=== PATIENT | male | born 1995 | race Hispanic/Latino ===

== ENCOUNTER 2020-02-18 21:39 | Emergency (ER) | payer OTHER ==
[~2020-02-18] VITALS: Ht 177.8 cm; Wt 90.7 kg
--- OUTSIDE RECORDS SUMMARY | 2020-02-18 22:01 | XMS REPORT | Continuity of Care Document ---
Author Author Edward Posibl.THERESA [employer] Address Unknown Phone Unavailable Care Team Providers Care [employer] Name Role Phone [employer] Information [employer] Unavailable Un available Problems Problem Status Onset Date Classification Date Reported Comments Source BMI 29.0-29.9,adult Active Problem 03/12/2019 Feroz Guthrie Major depressive disorder, single episode, severe Active Problem 06/14/2017 Ferozmerlin Guthrie BMI 30.0-30.9,adult Active Diagnosis 06/14/2017 Ferozmerlin Guthrie Autistic disorder, residual Ac tive Problem Ferozmerlin Guthrie Mild mental retardation Active Problem 03/12/2019 Feroz Jerri Autistic disorder Active Problem 03/12/2019 Feroz Jerri Pharyngitis Active Diagnosis 06/03/2018 Feroz Jerri URI (upper respiratory infection) Active Diagnosis 0 06/14/2017 Feroz Stacieaarnaldo Fever Active Diagnosis 06/03/2018 Feroz Jerri Major depressive disorder, single episod e, severe with psychotic features Active Prob killian 03/12/2019 Feroz Guthrie Routine general medical examination at a health care facility Active Diag nosis 07/13/2018 Ferozmerlin Guthrie Flu-like symptoms Active Diagnosis 06/03/2018 Feroz Jerri Screening for Alcoholism/Depression Active Diagnosis 0 06/03/2018 Feroz Stacieaji Gastroenteritis Active Diagnosis 12/04/2016 Feroz Stacieaarnaldo Nausea Active Diagnosis 12/04/2016 Feroz Stacieaji Headache Active Diagnosis 06/03/2018 Feroz Stacieaji BMI 27.0-27.9,adult Active Problem 03/12/2019 Feroz Stacieaarnaldo URI with cough and congestion Active Diagnosis 0 06/03/2018 Feroz Jerri Immunization due Active Diagnosis 03/12/2019 Ferozmerlin Guthrie Cellulitis of great toe of right foot Active Diagnosis 03/12/2019 Ferozmerlin Guthrie BMI 26.0-26.9,adult Active Diagnosis 03/12/2019 Feroz Jerri Vitamin D deficiency Active Problem 03/12/2019 Feroz Jerri Frequency of micturition Active Diagnosis 03/27/2016 Feroz Guthrie Cough Active Diagnosis 03/27/2016 Feroz Guthrie Medications Medication Details Route Status Patient Instructions Ordering Provider Order Date Source Bactrim DS 1 tablet Orally Active 800-160 MG Orally Twice a day [facility] 02[facility]27[facility] Poly[facility] Glycol as directed orally Active 527gm orally as directed [facility] 01/18/2014 Ferozmerlin Guthrie Vitamin D 1 capsule Orally Active 95338 UNIT Orally once a week [facility] 06/27/2013 [facility] Jerri Divalproex Sodium ER not defin ed Orally Active 250 MG [facility] Aripiprazole 1 tablet Orally Active 5 MG Orally [facility] Polyethylene Glycol 3350 TAKE DIRECTED NA Active [facility] analia Guthrie LoHist-DM 10 ml Orally Active 5-2-10 MG/5ML Orally ev gracie 6 hrs [facility] Ibuprofen 1 tablet with food o r milk as needed Orally Active 400 MG Orally three times a day (tid) as needed (prn) [facility] Vitamin D (Ergocalciferol) DEVIN E ONE CAPSULE BY MOUTH EVERY WEEK DIRECTED NA Active 73070 UNIT [facility] Bromfed DM 10 ml as needed Orally Active 30-2-10 MG/5ML Orally every 6 hrs [facility] Risperidone 1 tablet Orally Active 1 MG Orally Once a day [facility] Benztrop[facility] Mesylate 1 ml Injection Active 1 MG/ML Injection Once a day [facility] Strattera 1 capsule in the mor lizbeth Orally Active 60 MG Orally Once a day [facility] Pantoprazole Sodium 1 tablet Orally Active 40 MG Orally Once a day [facility] Guanfacine HCl 1 tablet at bed time Orally Active 1 MG Orally Once a day [facility] Ondansetron HCl 1 tablet Orally Active 4 mg Orally every 4 hrs prn nausea Mussletty Guthrie Amphetamine Salt Combo not def ined NA Active 20 mg Jerri Guthrie Ibuprofen 1 tablet as needed Orally Active 600 MG Orally every 6 hrs as needed Jerri Guthrie Ibuprofen 20 ml Orally Active 100 MG/5ML Orally every 6 hrs Jerri Guthrie Benzonatate 1 capsule as needed Orally Active 100 MG Orally Three times a day Jerri Guthrie Tamiflu 1 capsule Orally Active 75 MG Orally Twice a da [facility] Ibuprofen 1 tablet as needed Orally Active 600 MG Orally every 6 hrs Jerri Guthrie Risperidone 1 tablet Orally Active 1 MG Orally Once a day Staciearnaldo Guthrie LoHist-DM 10 ml Orally Active 5-2-10 MG/5ML Orally ev gracie 6 hrs Jerri Guthrie Divalproex Sodium ER 2 tablets Orally Active 250 MG Orally Twice a day Staciearnaldo [place]do Guanfacine HCl 1 tablet at bed time Orally Active 1 MG Orally Once a day Jerri Quinonesarnaldo Benzonatate 1 capsule as needed Orally Active 100 MG Orally Three times a day Jerri Guthrie Strattera 1 capsule in the mor lizbeth Orally Active 60 MG Orally Once a day Jerri Guthrie Ibuprofen 1 tablet as needed Orally Active 400 MG Orally every 6 hrs prn Jerri Guthrie Ibuprofen 20 ml Orally Active 100 MG/5ML Orally every 6 hrs Staciearnaldo [place]arnaldo Benztropine Mesylate 1 ml Injection Active 1 MG/ML Injection Once a day Jerri Quinonesarnaldo Bromfed DM 10 ml as needed Orally Active 30-2-10 MG/5ML Orally every 6 hrs Staciearnaldo Quinonesarnaldo Aripiprazole 1 tablet Orally Active 5 MG Orally Once a day Staciearnaldo [place]arnaldo Amoxicillin 1 tablet Orally Active 875 MG Orally Twice a d ay Jerri Quinonesarnaldo Atomoxetine HCl 1 capsule in t he morning Orally Active 60 MG Orally Once a day Jreri Guthrie D3-50 1 capsule Orally Active 27053 UNIT Orally once a week [facility] Amoxicillin 1 tablet Orally Active 500 MG Orally three kaylie es a day (tid) Jerri Guthrie Vitamin D 1 capsule Orally Active 64245 UNIT Orally once a week Jerri Guthrie Amphetamine Salt Combo Unknown NA Active 20 mg Stacieaarnaldo Guthrie Allergies, Adverse Reactions, Alerts Substance Category Reaction Severity Reaction type Status Date Reported Comments Source N.K.D.A. Adverse Reaction Info Not Available Adverse Reaction 02/27/2019 Feroz Mussaarnaldo Immunizations Immunization Date Given Site Status Last Updated Comments Source INFLUENZA- FLUCELVAX >4YRS (COMMERCIAL) 02/27/2019 completed Feroz Mussaarnaldo Results No Data Provided for This Section Pathology Reports No Data Provided for This Section Diagnostic Reports No Data Provided for This Section Consultation Notes No Data Provided for This Section Discharge Summaries No Data Provided for This Section History and Physicals No Data Provided for This Section Vital Signs Vital Sign Value Date Comments Source Heart Rate 108 02/27/2019 Feroz Mussaji Diastolic (mm Hg) 74 02/27/2019 Feroz Mussaji Systolic (mm Hg) 108 02/27/2019 Feroz Mussaji Temperature Oral (F) 98 F 02/27/2019 Feroz Mussaji Weight 188 02/27/2019 Feroz Mussaji Height 70 1 Feroz Mussaji Heart Rate 71 06/19/2018 Feroz Mussaji Diastolic (mm Hg) 21 06/19/2018 Feroz Mussaji Systolic (mm Hg) 111 06/19/2018 Feroz Mussaji Temperature Oral (F) 97.8 F 06/19/2018 Feroz Mussaji Weight 190 06/19/2018 Feroz Mussaji Height 70 0 06/19/2018 Feroz Mussaji Heart Rate 106 05/25/2018 Feroz Mussaji Diastolic (mm Hg) 78 05/25/2018 Feroz Mussaji Systolic (mm Hg) 117 05/25/2018 Feroz Mussaji Temperature Oral (F) 99.2 F 05/25/2018 Feroz Mussaji Weight 193 05/25/2018 Feroz Mussaji Height 70 0 05/25/2018 Feroz Mussaji Heart Rate 66 06/20/2017 Feroz Mussaji Diastolic (mm Hg) 70 06/20/2017 Feroz Mussaji Systolic (mm Hg) 121 06/20/2017 Feroz Mussaji Temperature Oral (F) 97 F 06/20/2017 Feroz Mussaji Weight 209 06/20/2017 Feroz Mussaji Height 70 0 06/20/2017 Feroz Mussaji Heart Rate 80 06/03/2017 Feroz Mussaji Diastolic (mm Hg) 79 06/03/2017 Feroz Mussaji Systolic (mm Hg) 124 06/03/2017 Feroz Mussaji Temperature Oral (F) 98 F 06/03/2017 Feroz Mussaji Weight 210 06/03/2017 Feroz Mussaji Height 70 0 06/03/2017 Feroz Mussaji Heart Rate 76 03/21/2017 Feroz Mussaji Diastolic (mm Hg) 78 03/21/2017 Feroz Mussaji Systolic (mm Hg) 118 03/21/2017 Feroz Mussaji Temperature Oral (F) 98.0 F 03/21/2017 Feroz Mussaji Weight 209.2 03/21/2017 Feroz Mussaji Height 70 1 Feroz Mussaji Heart Rate 72 11/22/2016 Feroz Mussaji Diastolic (mm Hg) 80 11/22/2016 Feroz Mussaji Systolic (mm Hg) 121 11/22/2016 Feroz Mussaji Temperature Oral (F) 98.2 F 11/22/2016 Feroz Mussaji Weight 214 11/22/2016 Feroz Mussaji Height 70 0 11/22/2016 Feroz Mussaji Heart Rate 98 03/15/2016 Feroz Mussaji Diastolic (mm Hg) 76 03/15/2016 Feroz Mussaji Systolic (mm Hg) 124 03/15/2016 Feroz Mussaji Temperature Oral (F) 98.6 F 03/15/2016 Feroz Mussaji Weight 210 03/15/2016 Feroz Mussaji Height 70 1 Feroz Mussaji Diastolic (mm Hg) 69 06/26/2013 Feroz Mussaji Systolic (mm Hg) 142 06/26/2013 Feroz Mussaji Temperature Oral (F) 97.4 F 06/26/2013 Ferozanalia Quinonesletty Weight 178 06/26/2013 Feroz Mussletty Height 67 0 06/26/2013 Feroz Guthrie Encounters Location Location Details Encounter Type Encounter Number Reason For Visit Attending Provider ADM Date DC Date Status Source Feroz Berry DO, [place] Unknown [id number] 06/27/19 14 06/27/2013 Feroz Berry DO, [place] Unknown [id number] 06/27/19 14 06/27/2013 Feroz Berry DO, [place] Unknown [id number] 06/27/19 14 06/27/2013 Feroz Berry DO, [place] Unknown [id number] 06/27/19 14 06/27/2013 Feroz Berry DO PA Test results [id number] 07/02/19 14 07/02/2013 Feroz Berry DO PA Test results [id number] 07/02/19 14 07/02/2013 Feroz Berry DO PA Test results [id number] 07/02/19 14 07/02/2013 Feroz Berry DO PA Test results [id number] 09/13/19 15 09/12/2014 Feroz Berry DO PA Test results [id number] 09/13/19 15 09/12/2014 Feroz Berry DO, PA Test results [id number] 08/28/19 16 08/28/2015 Feroz Berry DO, PA Test results [id number] 08/28/19 16 08/28/2015 Feroz Berry DO, [place] Consult [id number] 03/15/20 16 03/15/2016 Feroz Guthrie Procedures No Data Provided for This Section Assessment and Plan No Data Provided for This Section Plan of Care No Data Provided for This Section Social History No Data Provided for This Section Family History Value Date S ource QualifierDescriptionCommentDate Reported Maternal Grandmother Comment not available Mar 15, 2016 Paternal Grandmother Comment not available Mar 15, 2016 Siblings Comment not available Mar 15, 2016 Maternal Grandfather Comment not available Mar 15, 2016 Children Comment not available Mar 15, 2016 Father alive Comment not available Mar 15, 2016 Paternal Grandfather Comment not available Mar 15, 2016 Mother alive healthy Mar 15, 2016 Other: Comment not available Mar 15, 2016 03/27/2016 Feroz Guthrie Advance Directives No Data Provided for This Section Functional Status No Data Provided for This Section
--- OUTSIDE RECORDS SUMMARY | 2020-02-18 22:01 | XMS REPORT | Continuity of Care Document ---
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 Name Role Phone Chaka Mcclain Attphys Lucio Perrin Attphys Unavailable Higginbotham, Crystal Attphys Unavailable Lalo Enriquez Attphys Katty Romo Attphys Unavailable Latasha Bell Attphys Radha Ryan Attphys Unavailable Hart, Kamini Attphys Unavailable Law, Karina Attphys Unavailable Guillaume-Sachnik, Jie Attphys Unavailable Natasha Shanks Attphys Barrios, Nori Attphys Unavailable Barrios, Alina Attphys Unavailable Crockett, Christelle Attphys Unavailable Dodd, Moon Attphys Unavailable Kely Chavez Attphys Unavailable Stevens, Caitlin Attphys Unavailable Ramsey Kaplan, Shay Attphys Unavailable Patrica Carmichael Attphys Unavailable Chaka Mcclain Unavailable Natasha Shanks Unavailable Payers Payer Name Policy Type Policy Number Effective Date Expiration Date [facility] [id number] 00:00:00 2016 00:00:00 [employer] [facility] Health Problems Condition Name Condition Details Condition Category Status Onset Date Resolution Date Last Treatment Date Treating Clinician Comments Source Medication, group home use Condition Active 2018-11-22 00: 00:00 2018-11-22 15:45:51 Chaka Mcclain [facility] Screening for anemia Condition Active 2016-08-20 00:00:00 2016-08-20 17:41:23 Natasha Shanks [facility] Obesity Condition Active 2016-06-17 00:00:00 2016-06-17 09:00:05 Natasha Shanks [facility] PROBLEM R/T PHASE OF LIFE Condition Active 2016-02-12 00: 00:00 2016-02-12 09:10:32 Chaka Mcclain [facility] ADHD, COMBINED PRESENTATION, MILD Condition Active 02-11 00:00:00 2016-02-12 09:10:32 Chaka Mcclain [facility] BMI 29.0-29.9,adult BMI 29.0-29.9,adult Active Problem 03/12/2019 Ferozmerlin Guthrie Problem Active 2019-03-12 02:00:13 Edward Palacio Major depressive disorder, single episode, severe Major depressive disorder, single episode, severe Active Problem 06/14/2017 Ferozmerlin Betancourtji Problem Active 2017-06-14 03:00:05 [facility] BMI 30.0-30.9,adult BMI 30.0-30.9,adult Active Diagnosis 06/14/2017 Ferozmerlin Guthrie Diagnosis Active 2017-06-14 03:00:0 5 Edward Palacio Mild mental retardation Mild mental retardation Active Problem 03/12/2019 Ferozmerlin Betancourtji Problem Active 2019-03-12 0 2:00:13 Edward Palacio Autistic disorder Auti stic disorder Active Problem 03/12/2019 Feroz Stacieaji Problem Active 2019-03-12 02:00:13 Edward Palacio Pharyngitis Phar yngitis Active Diagnosis 06/03/2018 Feroz Stacieletty Diagnosis Active 2018-06-03 03:00:05 Edward Palacio Fever Feve r Active Diagnosis 06/03/2018 Feroz Stacieaji Diagnosis Active 2018-06-03 03:00:05 Edward Palacio Major depressive disorder, single episode, 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, single episode, severe with psychotic features Active Problem 03/12/2019 Feroz Stacieaji Problem Active 2019-03-12 02:00:13 Edward Palacio Routine general medical examination at a health care f acility Routine general medical examination at a health care facility Active Diagnosis 07/13/2018 Feroz Staciedelorisji Diagnosis Active 2018-07-13 03:05:4 8 Edward Palacio Flu-like symptoms Flu- like symptoms Active Diagnosis 06/03/2018 Ferozmerlin Guthrie Diagnosis Active 2018-06-03 03:00:0 5 Edward Palacio Screening for Alcoholism/Depression Screening for Alcoholism/Depression Active Diagnosis 06/03/2018 Ferozmerlin Guthrie Diagnosis Active 2018-06-03 03:00:05 Kathy Palacio Gastroenteritis Meera roenteritis Active Diagnosis 12/04/2016 Ferozmerlin Guthrie Diagnosis Active 2016-12-04 02:00:42 Edward Palacio Nausea Naus ea Active Diagnosis 12/04/2016 Feroz Jerri Diagnosis Active 2016-12-04 02:00:42 Edward Palacio Headache Head ache Active Diagnosis 06/03/2018 Ferozmerlin Guthrie Diagnosis Active 2018-06-03 03:00:05 [facility] [place] BMI 27.0-27.9,adult BMI 27.0-27.9,adult Active Problem 03/12/2019 Ferozmerlin Guthrie Problem Active 2019-03-12 02:00:13 Edward Palacio URI with cough and congestion URI with cough and congestion Active Diagnosis 06/03/2018 Ferozmerlin Guthrie Diagnosis Active 2018-06-03 03:00:05 Edward Palacio Immunization due Immu nization due Active Diagnosis 03/12/2019 Ferozmerlin Guthrie Diagnosis Active 2019-03-12 02:00:13 Edward Palacio Cellulitis of great toe of right foot Cellulitis of great toe of right foot Active Diagnosis 03/12/2019 Ferozmerlin Guthrie Diagnosis Active 2019-03-12 02:00:13 Memor iafederico Palacio BMI 26.0-26.9,adult BMI 26.0-26.9,adult Active Diagnosis 03/12/2019 Ferozmerlin Guthrie Diagnosis Active 2019-03-12 02:00:1 3 Edward Palacio Vitamin D deficiency Darlyn min D deficiency Active Problem 03/12/2019 Ferozmerlin Guthrie Problem Active 2019-03-12 02:00:13 Edward Palacio Frequency of micturition Freq uency of micturition Active Diagnosis 03/27/2016 Ferozmerlin Guthrie Diagnosis Active 2015 02:04:41 Edward Palacio Cough Coug h Active Diagnosis 03/27/2016 Ferozmerlin Guthrie Diagnosis Active 2016-03-27 02:04:41 Edward Palacio Allergies, Adverse Reactions, Alerts Allergy Name Allergy Type Status Severity Reaction(s) Onset Date Inacti ve Date Treating Clinician Comments Source Cheri. N.Kevin. Active Info Not Available 2019-02-27 00:00:00 [facility] Family History Family Member Diagnosis Comments Start Date Stop Date Source Unknown Family Member Family History 2016-03-27 02:04:41 2 02:04:41 [facility] Social History Social Habit Start Date Stop Date Quantity Comments Source social history reviewed E&M 2019-06-05 14:01:59 2019-06-05 14:01 :59 reviewed today [facility] social history E&M 2019-06-05 14:01:59 2019-06-05 14:01:59 Lives at home with mother and father; has 2 brothers ages 40 and 36 as of 02/12/16Not homeless. Has own roomNot employed. Finished HS in 2012, hopes to take college courses Sexually Active: No. [facility] drug use, illicit 2019-06-05 14:01:59 2019-06-05 14:01:59 Never [facility] alcohol use 2019-06-05 14:01:59 2019-06-05 14:01:59 Never [facility] smoking, advice to quit 2019-06-05 14:01:59 2019-06-05 14:01:59 Yes [facility] passive cigarette smoke exposure 2016-06-17 08:44:15 2016-06-17 08:44 :15 No [facility] patient considered to be homeless 2016-02-12 08:02:24 2016-02-12 08:0 2:24 No [facility] home/family situation, assessment 2016-02-12 08:02:24 2016-02-12 08:02:24 Has own room [facility] family support 2016-02-12 08:02:24 2016-02-12 08:02:24 Lives at home with mother and father; has 2 brothers ages 40 and 36 as of 02/12/16 [facility] Smoking Status Start Date Stop Date Source Never smoked tobacco (finding) L [facility] Medications Ordered Medication Name Filled Medication Name Start Date Stop Da te Current Medication? Ordering Clinician Indication Dosage Frequency Signature (SIG) Comments Components Source Aripiprazole 2019-03-12 02:00:13 Yes Feroz Mussaji 1 [facility] LoHist-DM 2019-03-12 02:00:13 Yes Feroz Mussaji 10 ml [facility] Ibuprofen 2019-03-12 02:00:13 Yes Feroz Mussaji 1 tablet with food or milk as needed [facility] Bromfed DM 2019-03-12 02:00:13 Yes Feroz Mussaji 10 ml as needed [facility] Risperidone 2019-03-12 02:00:13 Yes Feroz Mussaji 1 tablet [facility] Benzonatate 2019-03-12 02:00:13 Yes Feroz Mussaji 1 capsule as needed [facility] Ibuprofen 2019-03-12 02:00:13 Yes Feroz Mussaji 1 tablet as needed [facility] Divalproex Sodium ER 2019-03-12 02:00:13 Yes Feroz Mus osman 2 tablets [facility] Amoxicillin 2019-03-12 02:00:13 Yes Feroz Mussaji 1 tablet [facility] Atomoxetine HCl 2019-03-12 02:00:13 Yes Feroz Mussaji 1 capsule in the morning [facility] D3-50 2019-03-12 02:00:13 Yes Feroz Mussaji 1 c apsule [facility] Bactrim DS 2019-02-27 00:00:00 Yes Feroz Mussaji 1 tablet [facility] Divalproex Sodium ER 2018-07-13 03:05:48 Yes Feroz Mus osman not defined [facility] ABILIFY (ARIPIPRAZOLE) 10 MG TABS 2018-01-18 00:00:00 Arturo Mcclain .5{Tablet} 2xD Take one half tablet By Mouth Twice a Day [facility] Polyethylene Glycol 3350 2017-07-02 03:00:03 Yes Feroz Mussaji TAKE DIRECTED [facility] Vitamin D (Ergocalciferol) 2017-07-02 03:00:03 Yes Murta za Mussaji TAKE ONE CAPSULE BY MOUTH EVERY WEEK DIRECTED [facility] Benztropine Mesylate 2017-07-02 03:00:03 Yes Feroz Mussaji 1 ml [facility] Strattera 2017-07-02 03:00:03 Yes Feroz Mussaji 1 capsule in the morning [facility] Pantoprazole Sodium 2017-07-02 03:00:03 Yes Feroz Mussaji 1 tablet [facility] Guanfacine HCl 2017-07-02 03:00:03 Yes Feroz Mussaji 1 tablet at bedtime [facility] Ondansetron HCl 2017-07-02 03:00:03 Yes Feroz Mussaji 1 tablet [facility] Amphetamine Salt Combo 2017-07-02 03:00:03 Yes Feroz M ussaji not defined [facility] Ibuprofen 2017-07-02 03:00:03 Yes Feroz Mussaji 1 tablet as needed [facility] Ibuprofen 2017-07-02 03:00:03 Yes Feroz Mussaji 20 ml [facility] Tamiflu 2017-07-02 03:00:03 Yes Feroz Mussaji 1 capsule [facility] Risperidone 2016-12-04 02:00:42 Yes Feroz Mussaji 1 tablet [facility] LoHist-DM 2016-12-04 02:00:42 Yes Feroz Mussaji 10 ml [facility] Guanfacine HCl 2016-12-04 02:00:42 Yes Feroz Mussaji 1 tablet at bedtime [facility] Benzonatate 2016-12-04 02:00:42 Yes Feroz Mussaji 1 capsule as needed [facility] Strattera 2016-12-04 02:00:42 Yes Feroz Mussaji 1 capsule in the morning [facility] Ibuprofen 2016-12-04 02:00:42 Yes Feroz Mussaji 1 tablet as needed [facility] Ibuprofen 2016-12-04 02:00:42 Yes Feroz Mussaji 20 ml [facility] Benztropine Mesylate 2016-12-04 02:00:42 Yes Feroz Mussaji 1 ml [facility] Bromfed DM 2016-12-04 02:00:42 Yes Feroz Mussaji 10 ml as needed [facility] Aripiprazole 2016-12-04 02:00:42 Yes Feroz Mussaji 1 tablet [facility] (GUANFACINE HCL) 1 MG TABS 2016-07-05 00:00:00 2017-09-28 00:00:00 No take one tablet By Mouth daily (can take one half tablet two times daily) [facility] 2016-03-27 02:04:41 Yes Feroz Guthrie 1 tablet [facility] Vitamin D 2016-03-27 02:04:41 Yes Feroz Guthrie 1 capsule [facility] Amphetamine Salt Combo 2016-03-27 02:04:41 Yes Feroz farr Unknown [facility] [place] STRATTERA (ATOMOXETINE HCL) 60 MG CAPS 2016-02-12 00:00:00 Yes Chaka Johny take one tablet By Mouth daily [facility] DEPAKOTE SPRINKLES (DIVALPROEX SODIUM) 125 MG CSDR 2016-01 00:00:00 Yes Chaka Johny Take two capsules By Mouth Twice a Day [facility] ABILIFY (ARIPIPRAZOLE) 5 MG TABS 2016-02-12 00:00:00 2017-09 00:00:00 No take one tablet By Mouth once daily at bedtime [facility] Polyethylene Glycol 2014-01-18 00:00:00 Yes Feroz saenz as directed [facility] Vitamin D 2013-06-27 00:00:00 Yes Feroz Guthrie 1 capsule [facility] Vital Signs Vital Name Observation Time Observation Value Comments Source blood pressure, diastolic 2019-06-05 14:01:59 85 mm[Hg] [facility] blood pressure, systolic 2019-06-05 14:01:59 127 mm[Hg] [facility] pulse rate E&M 2019-06-05 14:01:59 107 /min [facility] weight E&M 2019-06-05 14:01:59 196.50 [lb_av] [facility] weight in kilograms E&M 2019-06-05 14:01:59 89.32 kg [facility] height in centimeters E&M 2019-06-05 14:01:59 177.16 cm [facility] blood pressure, diastolic 2019-04-09 11:28:40 78 mm[Hg] [facility] blood pressure, systolic 2019-04-09 11:28:40 125 mm[Hg] [facility] pulse rate E&M 2019-04-09 11:28:40 101 /min [facility] weight E&M 2019-04-09 11:28:40 189.13 [lb_av] [facility] weight in kilograms E&M 2019-04-09 11:28:40 85.97 kg [facility] height in centimeters E&M 2019-04-09 11:28:40 177.16 cm [facility] Heart Rate 2019-02-27 19:45:00 [facility] Diastolic (mm Hg) 2019-02-27 19:45:00 [facility] Systolic (mm Hg) 2019-02-27 19:45:00 [facility] [place] Temperature Oral (F) 2019-02-27 19:45:00 98 F [facility] Weight 2019-02-27 19:45:00 [facility] Height 2019-02-27 19:45:00 [facility] blood pressure, diastolic 2018-11-22 15:15:22 83 mm[Hg] [facility] blood pressure, systolic 2018-11-22 15:15:22 135 mm[Hg] [facility] pulse rate E&M 2018-11-22 15:15:22 98 /min [facility] weight E&M 2018-11-22 15:15:22 189.80 [lb_av] [facility] weight in kilograms E&M 2018-11-22 15:15:22 86.27 kg [facility] height in centimeters E&M 2018-11-22 15:15:22 177.16 cm [facility] blood pressure, diastolic 2018-08-02 15:00:41 76 mm[Hg] [facility] blood pressure, systolic 2018-08-02 15:00:41 110 mm[Hg] [facility] pulse rate E&M 2018-08-02 15:00:41 86 /min [facility] weight E&M 2018-08-02 15:00:41 188.50 [lb_av] [facility] weight in kilograms E&M 2018-08-02 15:00:41 85.68 kg [facility] height in centimeters E&M 2018-08-02 15:00:41 177.16 cm [facility] Heart Rate 2018-06-19 14:30:00 [facility] Diastolic (mm Hg) 2018-06-19 14:30:00 [facility] Systolic (mm Hg) 2018-06-19 14:30:00 Herb [facility] [place] Temperature Oral (F) 2018-06-19 14:30:00 97.8 F [facility] Weight 2018-06-19 14:30:00 [facility] Height 2018-06-19 14:30:00 [facility] Heart Rate 2018-05-25 20:00:00 [facility] Diastolic (mm Hg) 2018-05-25 20:00:00 Mem [facility] Systolic (mm Hg) 2018-05-25 20:00:00 Herb Palacio Temperature Oral (F) 2018-05-25 20:00:00 99.2 F [facility] Weight 2018-05-25 20:00:00 [facility] Height 2018-05-25 20:00:00 [facility] weight E&M 2018-05-10 08:26:53 194 [lb_av] [facility] blood pressure, diastolic 2018-05-10 08:26:53 75 mm[Hg] [facility] blood pressure, systolic 2018-05-10 08:26:53 113 mm[Hg] [facility] pulse rate E&M 2018-05-10 08:26:53 82 /min [facility] weight in kilograms E&M 2018-05-10 08:26:53 88.18 kg [facility] height in centimeters E&M 2018-05-10 08:26:53 177.16 cm [facility] blood pressure, diastolic 2018-02-15 11:27:36 81 mm[Hg] [facility] blood pressure, systolic 2018-02-15 11:27:36 121 mm[Hg] [facility] pulse rate E&M 2018-02-15 11:27:36 81 /min [facility] weight E&M 2018-02-15 11:27:36 189 [lb_av] [facility] weight in kilograms E&M 2018-02-15 11:27:36 85.91 kg [facility] height in centimeters E&M 2018-02-15 11:27:36 177.16 [facility]&M 2018-01-18 12:42:41 193.25 [lb_av] [facility] weight in kilograms E&M 2018-01-18 12:42:41 87.84 kg [facility] blood pressure, diastolic 2018-01-18 12:42:41 81 mm[Hg] [facility] blood pressure, systolic 2018-01-18 12:42:41 122 mm[Hg] [facility] pulse rate E&M 2018-01-18 12:42:41 95 /min [facility] height in centimeters E&M 2018-01-18 12:42:41 177.[facility], diastolic 2017-12-21 12:44:39 81 mm[Hg] [facility] pressure, systolic 2017-12-21 12:44:39 123 mm[Hg] [facility] pulse rate E&M 2017-12-21 12:44:39 116 /min [facility] weight E&M 2017-12-21 12:44:39 193.13 [lb_av] [facility] weight in kilograms E&M 2017-12-21 12:44:39 87.79 kg [facility] height in centimeters E&M 2017-12-21 12:44:39 177.16 cm [facility] blood pressure, diastolic 2017-09-28 08:47:03 78 mm[Hg] [facility] blood pressure, systolic 2017-09-28 08:47:03 120 mm[Hg] [facility] pulse rate E&M 2017-09-28 08:47:03 69 /min [facility] weight E&M 2017-09-28 08:47:03 200 [lb_av] [facility] weight in kilograms E&M 2017-09-28 08:47:03 90.91 kg [facility] height in centimeters E&M 2017-09-28 08:47:03 177.16 cm [facility] blood pressure, diastolic 2017-07-01 14:58:41 74 mm[Hg] [facility] blood pressure, systolic 2017-07-01 14:58:41 128 mm[Hg] [facility] weight E&M 2017-07-01 14:58:41 211 [lb_av] [facility] weight in kilograms E&M 2017-07-01 14:58:41 95.91 kg [facility] height in centimeters E&M 2017-07-01 14:58:41 177.16 cm [facility] Heart Rate 2017-06-20 14:30:00 [facility] Diastolic (mm Hg) 2017-06-20 14:30:00 [facility] Systolic (mm Hg) 2017-06-20 14:30:00 [facility] Temperature Oral (F) 2017-06-20 14:30:00 97 F [facility] Weight 2017-06-20 14:30:00 [facility] Height 2017-06-20 14:30:00 [facility] Heart Rate 2017-06-03 20:45:00 [facility] Diastolic (mm Hg) 2017-06-03 20:45:00 [facility] Systolic (mm Hg) 2017-06-03 20:45:00 [facility] Temperature Oral (F) 2017-06-03 20:45:00 98 F [facility] Weight 2017-06-03 20:45:00 [facility] Height 2017-06-03 20:45:00 [facility] Heart Rate 2017-03-21 20:00:00 [facility] Diastolic (mm Hg) 2017-03-21 20:00:00 [facility] Systolic (mm Hg) 2017-03-21 20:00:00 Herb [facility] [place] Temperature Oral (F) 2017-03-21 20:00:00 98.0 F [facility] Weight 2017-03-21 20:00:00 [facility] Height 2017-03-21 20:00:00 [facility] pressure, diastolic 2017-02-28 09:25:02 70 mm[Hg] [facility] blood pressure, systolic 2017-02-28 09:25:02 124 mm[Hg] [facility] pulse rate E&M 2017-02-28 09:25:02 66 /min [facility] weight E&M 2017-02-28 09:25:02 209 [lb_av] [facility] weight in kilograms E&M 2017-02-28 09:25:02 95 kg [facility] height in centimeters E&M 2017-02-28 09:25:02 177.16 cm [facility] temperature site 2016-12-15 09:45:20 tympanic [facility] temperature E&M 2016-12-15 09:45:20 98.5 [degF] [facility] blood pressure, diastolic 2016-12-06 09:52:43 81 mm[Hg] [facility] blood pressure, systolic 2016-12-06 09:52:43 124 mm[Hg] [facility] pulse rate E&M 2016-12-06 09:52:43 60 /min [facility] weight E&M 2016-12-06 09:52:43 215.40 [lb_av] [facility] weight in kilograms E&M 2016-12-06 09:52:43 97.91 kg [facility] height in centimeters E&M 2016-12-06 09:52:43 177.16 cm [facility] Heart Rate 2016-11-22 15:00:00 Edward Palacio Diastolic (mm Hg) 2016-11-22 15:00:00 Emma Palacio Systolic (mm Hg) 2016-11-22 15:00:00 Herb Palacio Temperature Oral (F) 2016-11-22 15:00:00 98.2 F [facility] Weight 2016-11-22 15:00:00 [facility] Height 2016-11-22 15:00:00 [facility] blood pressure, diastolic 2016-09-13 10:12:38 82 mm[Hg] [facility] blood pressure, systolic 2016-09-13 10:12:38 111 mm[Hg] [facility] pulse rate E&M 2016-09-13 10:12:38 118 /min [facility] height in centimeters E&M 2016-09-13 10:12:38 177.16 cm [facility] weight E&M 2016-09-13 10:12:38 216.60 [lb_av] [facility] weight in kilograms E&M 2016-09-13 10:12:38 98.45 kg [facility] blood pressure, diastolic 2016-07-19 10:42:37 77 mm[Hg] [facility] blood pressure, systolic 2016-07-19 10:42:37 120 mm[Hg] [facility] pulse rate E&M 2016-07-19 10:42:37 72 /min [facility] weight E&M 2016-07-19 10:42:37 215.13 [lb_av] [facility] weight in kilograms E&M 2016-07-19 10:42:37 97.79 kg [facility] height in centimeters E&M 2016-07-19 10:42:37 177.16 cm [facility] pressure, diastolic 2016-07-05 10:12:33 79 mm[Hg] [facility] blood pressure, systolic 2016-07-05 10:12:33 121 mm[Hg] [facility] pulse rate E&M 2016-07-05 10:12:33 75 /min [facility] E&M 2016-07-05 10:12:33 210.50 [lb_av] [facility] weight in kilograms E&M 2016-07-05 10:12:33 95.68 kg [facility] height in centimeters E&M 2016-07-05 10:12:33 177.16 cm [facility] oxygen saturation, oximetry 2016-06-17 08:44:15 99 % [facility] temperature E&M 2016-06-17 08:44:15 98.0 [degF] [facility] pulse rate E&M 2016-06-17 08:44:15 84 /min [facility] [facility] blood pressure, diastolic 2016-06-17 08:44:15 79 mm[Hg] [facility] blood pressure, systolic 2016-06-17 08:44:15 118 mm[Hg] [facility] weight E&M 2016-06-17 08:44:15 213 [lb_av] [facility] in [facility] E&M 2016-06-17 08:44:15 96.82 kg [facility] temperature site 2016-06-17 08:44:15 tympanic [facility] height in centimeters E&M 2016-06-17 08:44:15 177.16 cm [facility] blood pressure, diastolic 2016-05-05 10:24:18 76 mm[Hg] [facility], systolic 2016-05-05 10:24:18 119 mm[Hg] [facility] pulse rate E&M 2016-05-05 10:24:18 80 /min [facility] weight E&M 2016-05-05 10:24:18 215.25 [lb_av] [facility] weight in kilograms E&M 2016-05-05 10:24:18 97.84 kg [facility] height in centimeters E&M 2016-05-05 10:24:18 177.16 cm [facility] Heart Rate 2016-03-15 14:15:00 [facility] Diastolic (mm Hg) 2016-03-15 14:15:00 [facility] Systolic (mm Hg) 2016-03-15 14:15:00 [facility] Temperature Oral (F) 2016-03-15 14:15:00 98.6 F [facility] Weight 2016-03-15 14:15:00 [facility] Height 2016-03-15 14:15:00 [facility] blood pressure, diastolic 2016-03-10 10:16:34 80 mm[Hg] [facility] blood pressure, systolic 2016-03-10 10:16:34 121 mm[Hg] [facility] pulse rate E&M 2016-03-10 10:16:34 90 /min [facility] weight E&M 2016-03-10 10:16:34 210.50 [lb_av] [facility] weight in kilograms E&M 2016-03-10 10:16:34 95.68 kg [facility] height in centimeters E&M 2016-03-10 10:16:34 177.16 cm [facility] blood pressure, diastolic 2016-02-12 08:02:24 71 mm[Hg] [facility] blood pressure, systolic 2016-02-12 08:02:24 124 mm[Hg] [facility] pulse rate E&M 2016-02-12 08:02:24 78 /min [facility] weight E&M 2016-02-12 08:02:24 213.13 [lb_av] [facility] weight in kilograms E&M 2016-02-12 08:02:24 96.88 kg [facility] height E&M 2016-02-12 08:02:24 69.75 [in_i] [facility] Diastolic (mm Hg) 2013-06-26 14:45:00 Emma Palacio Systolic (mm Hg) 2013-06-26 14:45:00 Herb Palacio Temperature Oral (F) 2013-06-26 14:45:00 97.4 F [facility] Weight 2013-06-26 14:45:00 [facility] Height 2013-06-26 14:45:00 [facility] Procedures Procedure Date / Time Performed Performing Clinician Sour e Diagnostic evaluation with medical - 30534 2016-02-12 09:09:59 Chaka Abraham [facility] Encounters Start Date/Time End Date/Time Encounter Type Admission Type [facility] Care Department Encounter ID Source 2019-06-05 00:00:00 2019-06-05 00:00:00 Office Visit Chaka Mcclain [facility] Encounter/[id number] [facility] 2019-06-05 00:00:00 2019-06-05 00:00:00 Office Visit Chaka Abraham Adam [facility] Encounter/1 [id number] [facility] 2019-04-18 00:00:00 2019-04-18 00:00:00 Office Visit Chaka Mcclain [facility] Encounter/[id number] [facility] 2019-04-17 00:00:00 2019-04-17 00:00:00 Office Visit Chaka Abraham Adam [facility] Encounter/1 [id number] [facility] 2019-04-09 00:00:00 2019-04-09 00:00:00 Office Visit Chaka Abraham Adam [facility] Encounter/1 [id number] [facility] 2019-02-27 14:45:00 2019-02-27 14:45:00 Outpatient [facility] [id number] [employer] 2018-11-22 00:00:00 2018-11-22 00:00:00 Office Visit Chaka Mcclain [facility] Encounter/[id number] [facility] 2018-11-22 00:00:00 2018-11-22 00:00:00 Office Visit Chaka Abraham Jessenia [facility] Encounter/[id number] [facility] 2018-08-02 00:00:00 2018-08-02 00:00:00 Office Visit Chaka Abraham Jessenia [facility] Encounter/[id number] [facility] 2018-06-19 08:30:00 2018-06-19 08:30:00 Outpatient [facility] [id number] [employer] 2018-06-19 00:00:00 2018-06-19 00:00:00 [facility] En[facility]/[id number] [facility] 2018-05-25 14:00:00 2018-05-25 14:00:00 Outpatient [facility] [id number] [employer] 2018-05-10 00:00:00 2018-05-10 00:00:00 Office Visit Chaka Abraham Jessenia [facility] Encounter/[id number] [facility] 2018-02-15 00:00:00 2018-02-15 00:00:00 Office Visit Chaka Abraham Jessenia [facility] Encounter/[id number] [facility] 2018-01-18 00:00:00 2018-01-18 00:00:00 Office Visit Chaka Abraham Jessenia [facility] Encounter/[id number] [facility] 2017-12-21 00:00:00 2017-12-21 00:00:00 Office Visit Chaka Mcclain [facility] Encounter/[id number] [facility] 2017-12-21 00:00:00 2017-12-21 00:00:00 Office Visit Chaka Abraham Jessenia [facility] Encounter/[id number] [facility] 2017-09-28 00:00:00 2017-09-28 00:00:00 Office Visit Chaka Abraham Jessenia [facility] Encounter/[id number] [facility] 2017-07-01 00:00:00 2017-07-01 00:00:00 Office Visit Chaka Abraham Jessenia [facility] Encounter/[id number] [facility] 2017-06-20 08:30:00 2017-06-20 08:30:00 Outpatient [facility] [id number] e[employer]Works 2017-06-20 00:00:00 2017-06-20 00:00:00 Office Visit Chaka Mcclain [facility] Encounter/[id number] [facility] 2017 00:00:00 2017 00:00:00 [facility]/[id number] [facility] 2017-06-10 00:00:00 2017-06-10 00:00:00 Office Visit Chaka Mcclain [facility] Encounter/[id number] [facility] 2017-06-03 14:45:00 2017-06-03 14:45:00 Outpatient [facility] [id number] e[employer] 2017-03-29 00:00:00 2017-03-29 00:00:00 Office Visit [facility]aka [facility]/[id number] [facility] 2017-03-21 14:00:00 2017-03-21 14:00:00 Outpatient [facility] [id number] e[employer]Works 2017-02-28 00:00:00 2017-02-28 00:00:00 Office Visit Chaka Mcclain [facility] Encounter/[id number] [facility] 2017-02-28 00:00:00 2017-02-28 00:00:00 Office Visit Chaka Abraham Jessenia [facility] Encounter/[id number] [facility] 2016-12-15 00:00:00 2016-12-15 00:00:00 Office Visit Irais Bell [facility] Encounter/[id number] [facility] 2016-12-15 00:00:00 2016-12-15 00:00:00 Office Visit Radha Powell Guadalupe [facility] Encounter/[id number] [facility] 2016-12-06 00:00:00 2016-12-06 00:00:00 Office Visit Chaka Abraham Velia [facility] Enc ounter/[id number] [facility] 2016-11-25 14:37:00 2016-11-25 14:37:00 Outpatient [facility] [id number] e[employer]Works 2016-11-22 10:00:00 2016-11-22 10:00:00 Outpatient [facility] [id number] [employer]Works 2016-11-17 11:41:00 2016-11-17 11:41:00 Outpatient [facility] [id number] e[employer]Works 2016-10-11 00:00:00 2016-10-11 00:00:00 Office Visit Crystal Hylton [facility] Encounter/[id number] [facility] 2016-09-13 00:00:00 2016-09-13 00:00:00 Office Visit Chaka Abraham Velia [facility] Enc ounter/[id number] [facility] 2016-09-02 00:00:00 2016-09-02 00:00:00 Office Visit Chaka Mcclain [facility] Encounter/[id number] [facility] 2016-09-01 00:00:00 2016-09-01 00:00:00 Office Visit Chaka Abraham Jessenia [facility] Encounter/[id number] [facility] 2016-08-20 00:00:00 2016-08-20 00:00:00 Office Visit Natasha Shanks [facility] Encounter/[id number] [facility] 2016-08-16 00:00:00 2016-08-16 00:00:00 Office Visit Irais Bell [facility] Encounter/[id number] [facility] 2016-08-16 00:00:00 2016-08-16 00:00:00 Office Visit Latasha Linder Vanessa Padilla, Dunia [facility] Encou nter/[id number] [facility] 2016-08-12 00:00:00 2016-08-12 00:00:00 Office Visit Chaka Mcclain [facility] Encounter/[id number] [facility] 2016-08-05 00:00:00 2016-08-05 00:00:00 Office Visit Chaka Mcclain [facility] Encounter/[id number] [facility] 2016-08-04 00:00:00 2016-08-04 00:00:00 Office Visit Chaka Abraham Jessenia Amaya, Rosa [facility] Services Contact Center Encounter/[id number] [facility] 2016-08-02 00:00:00 2016-08-02 00:00:00 Office Visit Chaka Mcclain [facility] Encounter/[id number] [facility] 2016-07-28 00:00:00 2016-07-28 00:00:00 Office Visit Latasha Linder Dunia [facility] Enc nter/[id number] [facility] 2016-07-19 00:00:00 2016-07-19 00:00:00 Office Visit Chaka Abraham Jessenia [facility] Encounter/[id number] [facility] 2016-07-05 00:00:00 2016-07-05 00:00:00 Office Visit Chaka Abraham Jessenia [facility] Encounter/[id number] [facility] 2016-06-30 00:00:00 2016-06-30 00:00:00 Office Visit Chaka Abraham Jessenia [facility] Encounter/[id number] [facility] 2016 00:00:00 2016 00:00:00 Office Visit Moon Dodd [facility] Encounter/[id number] [facility] 2016 00:00:00 2016 00:00:00 Office Visit Natasha Shanks [facility] Encounter/[id number] [facility] 2016-06-17 00:00:00 2016-06-17 00:00:00 Office Visit Natasha Shanks [facility] Encounter/[id number] [facility] 2016-06-17 00:00:00 2016-06-17 00:00:00 Office Visit Natasha Light Daisy LC [facility] Encou nter/[id number] [facility] 2016-06-17 00:00:00 2016-06-17 00:00:00 Office Visit Natasha Shanks [facility] Encounter/[id number] [facility] 2016-06-17 00:00:00 2016-06-17 00:00:00 Office Visit Natasha Light Julissa Velez, Guadalupe [facility] Encounter/[id number] [facility] 2016-05-05 00:00:00 2016-05-05 00:00:00 Office Visit Chkaa Abraham Jessenia [facility] Encounter/[id number] [facility] 2016-03-16 00:00:00 2016-03-16 00:00:00 Office Visit Caitlin Ellsworth [facility] [employer] Encounter/[id number] [facility] 2016-03-15 09:15:00 2016-03-15 09:15:00 Outpatient Feroz Berry DO, PA Murtaza Musajji, [place], [place] [id number] eClinicalWorks 2016-03-10 00:00:00 2016-03-10 00:00:00 Office Visit Chaka Abraham Miguel [facility]a lth Encounter/[id number] [facility] 2016-02-18 00:00:00 2016-02-18 00:00:00 [facility] Encounter/[id number] [facility] 2016-02-12 00:00:00 2016-02-12 00:00:00 [facility]/[id number] [facility] 2016-02-12 00:00:00 2016-02-12 00:00:00 Office Visit Chaka Abraham Kristin Villegas, Erica [facility] Encounter/[id number] [facility] 2016-02-12 00:00:00 2016-02-12 00:00:00 Office Visit Chaka Abraham Miguel [facility] Encounter/[id number] [facility] 2016-02-11 00:00:00 2016-02-11 00:00:00 Office Visit Shay Carballo [facility] Encounter/1 [id number] [facility] 2015-08-28 09:06:00 2015-08-28 09:06:00 Outpatient Feroz Berry DO, PA Murtaza Musajji, [place], [place] [id number] eClinicalWorks 2013-07-02 15:29:00 2013-07-02 15:29:00 Outpatient Feroz Berry DO, PA Murtaza Musajji, DO [place] [id number] eClinicalWorks 2013-06-27 16:12:00 2013-06-27 16:12:00 Outpatient Feroz Berry DO, PA Murtaza Musajji, [place], [place] [id number] eClinicalWorks Results Test Description Test Time Test Comments Results Result Comments Source valproic acid, serum 2019-06-05 15:09:00 Test Item valproic acid, serum (test code = 289) 29 ug/mL 50-100 L [facility], [id number] 15:09:00* Test Item Value Reference Range Interpretation Comments LDL cholesterol, serum (test code = 2089-1) 66 mg/dL 0-99 [facility] Centervery low density [id number] 15:09:00* Test Item Value Reference Range Interpretation Comments very low density lipoproteins (test code = 2548) 14 mg/dL 5-40 [facility]HDL cholesterol, [id number] 15:09:00* Test Item Value Reference Range Interpretation Comments HDL cholesterol, serum (test code = 2085-9) 54 mg/dL >39 [facility]ertrig[facility], serum, [id number] 15:09:00* Test Item Value Reference Range Interpretation Comments triglyceride, serum, fasting (test code = 2571-8) 69 mg/dL 0-14 9 [facility] Centercholesterol, [id number] 15:09:00* Test Item Value Reference Range Interpretation Comments cholesterol, serum (test code = 2093-3) 134 mg/dL 100-199 [facility] Cent[facility]anine aminotransferase (SGPT), [id number] 15:09:00 * Test Item Value Reference Range Interpretation Comments alanine aminotransferase (SGPT), serum (test code = 40) 22 1/L 0-44 [facility] Centeraspartate aminotransferase (SGOT), [id number] 15:09:00* Test Item Value Reference Range Interpretation Comments aspartate aminotransferase (SGOT), serum (test code = 39) 15 1/L 0-40 [facility] Centeralkaline phosphatase, [id number] 15:09:00* Test Item Value Reference Range Interpretation Comments alkaline phosphatase, serum (test code = 3) 61 1/L 39-117 [facility]bilirubin, serum, [id number] 15:09:00* Test Item Value Reference Range Interpretation Comments bilirubin, serum, total (test code = 43) 1.4 mg/dL 0.0-1.2 H [facility] Centeralbumin/globulin ratio, [id number] 15:09:00* Test Item Value Reference Range Interpretation Comments albumin/globulin ratio, serum (test code = 146) 2.0 1.2-2. 2 [facility] Centerglobulin, [id number] 15:09:00* Test Item Value Reference Range Interpretation Comments globulin, serum (test code = 3059) 2.5 1.5-4.5 [facility] Healthalbumin, [id number] 15:09:00* Test Item Value Reference Range Interpretation Comments albumin, serum (test code = 2) 4.9 g/dL 3.5-5.5 [facility] Healthprotein, total, [id number] 15:09:00* Test Item Value Reference Range Interpretation Comments protein, total, serum (test code = 36) 7.4 g/dL 6.0-8.5 [facility] Healthcalcium, [id number] 15:09:00* Test Item Value Reference Range Interpretation Comments calcium, serum (test code = 11) 9.9 mg/dL 8.7-10.2 [facility] Centercarbon dioxide, venous [id number] 15:09:00* Test Item Value Reference Range Interpretation Comments carbon dioxide, venous blood (test code = 15) 25 mmol/L 20-29 [facility] Healthchloride, [id number] 15:09:00* Test Item Value Reference Range Interpretation Comments chloride, serum (test code = 13) 99 mmol/L 96-106 [facility] Centerpotassium, [id number] 15:09:00* Test Item Value Reference Range Interpretation Comments potassium, serum (test code = 35) 4.3 mmol/L 3.5-5.2 [facility] Centersodium, [id number] 15:09:00* Test Item Value Reference Range Interpretation Comments sodium, serum (test code = 159) 141 mmol/L 134-144 [facility] Centerurea nitrogen/creatinine ratio, [id number] 15:09:00 * Test Item Value Reference Range Interpretation Comments urea nitrogen/creatinine ratio, serum (test code = 2462) 11 9-20 [facility] HealtheGFR if [id number] 15:09:00* Test Item Value Reference Range Interpretation Comments eGFR if (test code = 638532) 124 mL/min/((173/100) .m2) >59 [facility] CenterEstimated Glomerular Filtration Rate (calc)2019-06-05 15:09:00* Test Item Value Reference Range Interpretation Comments Estimated Glomerular Filtration Rate (calc) (test code = 59828) 107 mL/min/((173/100).m2) >59 [facility] Centercreatinine, [id number] 15:09:00* Test Item Value Reference Range Interpretation Comments creatinine, serum (test code = 18) 0.98 mg/dL 0.76-1.27 [facility] Centerurea nitrogen, [id number] 15:09:00* Test Item Value Reference Range Interpretation Comments urea nitrogen, blood (test code = 9) 11 mg/dL 6-20 [facility] Centerblood glucose, [id number] 15:09:00* Test Item Value Reference Range Interpretation Comments blood glucose, random (test code = 8) 91 mg/dL 65-99 [facility] Centerimmature granulocytes, percentage of total cells, blood 2019-06-05 15:09:00* Test Item Value Reference Range Interpretation Comments immature granulocytes, percentage of total cells, bloo d (test code = 304992) 0 % [facility] Centerbasophil count, [id number] 15:09:00* Test Item Value Reference Range Interpretation Comments basophil count, absolute (test code = 49321) 0.0 x10E3/uL 0.0-0.2 [facility] CenterEosinophil Absolute [id number] 15:09:00* Test Item Value Reference Range Interpretation Comments Eosinophil Absolute Count (test code = 267317) 0.1 X10E3/UL 0.0-0.4 [facility] Centermonocyte count, blood, [id number] 15:09:00* Test Item Value Reference Range Interpretation Comments monocyte count, blood, automated (test code = 3076) 0.3 X10E3/UL 0. 1-0.9 [facility] Centerlymphocyte count, blood, [id number] 15:09:00* Test Item Value Reference Range Interpretation Comments lymphocyte count, blood, automated (test code = 3074) 1.3 X10E3/UL 0.7-3.1 [facility] CenterAbsolute [id number] 15:09:00* Test Item Value Reference Range Interpretation Comments Absolute Neutrophils (test code = 80789) 3.0 X10E3/UL 1.4-7.0 [facility] Centerbasophils as percent of blood [id number] 15:09:00* Test Item Value Reference Range Interpretation Comments basophils as percent of blood leukocytes (test code = 2426) 1 % [facility] Centereosinophils as percent of blood [id number] 15:09:00* Test Item Value Reference Range Interpretation Comments eosinophils as percent of blood leukocytes (test code = 4170) 2 % [facility] Healthmonocytes as percent of blood [id number] 15:09:00* Test Item Value Reference Range Interpretation Comments monocytes as percent of blood leukocytes (test code = 2421) 6 % [facility] Centerlymphocytes as percent of blood [id number] 15:09:00* Test Item Value Reference Range Interpretation Comments lymphocytes as percent of blood leukocytes (test code = 317) 27 % [facility] Centerneutrophils as percent of blood [id number] 15:09:00* Test Item Value Reference Range Interpretation Comments neutrophils as percent of blood leukocytes (test code = 316) 64 % [facility] Centerplatelet [id number] 15:09:00* Test Item Value Reference Range Interpretation Comments platelet count (test code = 66) 210 X10E3/UL 150-450 [facility] Centerred blood cell distribution [id number] 15:09:00* Test Item Value Reference Range Interpretation Comments red blood cell distribution width (test code = 1030) 13.4 % 1 1.6-15.4 [facility] corpuscular hemoglobin concentration, [id number] 15:09:00* Test Item Value Reference Range Interpretation Comments mean corpuscular hemoglobin concentration, RBC (test code = 1029) 34.1 G/DL 31.5-35.7 [facility] corpuscular hemoglobin, [id number] 15:09:00* Test Item Value Reference Range Interpretation Comments mean corpuscular hemoglobin, RBC (test code = 1031) 30.3 pg 26 .6-33.0 [facility] corpuscular volume, [id number] 15:09:00* Test Item Value Reference Range Interpretation Comments mean corpuscular volume, RBC (test code = 315) 89 fL 79-97 [facility] Centerhematocrit, [id number] 15:09:00* Test Item Value Reference Range Interpretation Comments hematocrit, blood (test code = 64) 46.9 % 37.5-51.0 [facility] Centerhemoglobin, [id number] 15:09:00* Test Item Value Reference Range Interpretation Comments hemoglobin, blood (test code = 65) 16.0 g/dL 13.0-17.7 [facility] Centererythrocyte (RBC) [id number] 15:09:00* Test Item Value Reference Range Interpretation Comments erythrocyte (RBC) count (test code = 67) 5.28 X10E6/UL 4.14-5.80 [facility] Centerleukocyte count, [id number] 15:09:00* Test Item Value Reference Range Interpretation Comments leukocyte count, blood (test code = 68) 4.8 X10E3/UL 3.4-10.8 [facility] Centervalproic acid, [id number] 16:01:00* Test Item Value Reference Range Interpretation Comments valproic acid, serum (test code = 289) 16 ug/mL 50-100 L [facility] CenterLDL cholesterol, [id number] 16:01:00* Test Item Value Reference Range Interpretation Comments LDL cholesterol, serum (test code = 2089-1) 47 mg/dL 0-99 [facility] low density [id number] 16:01:00* Test Item Value Reference Range Interpretation Comments very low density lipoproteins (test code = 2548) 18 mg/dL 5-40 [facility] CenterHDL cholesterol, [id number] 16:01:00* Test Item Value Reference Range Interpretation Comments HDL cholesterol, serum (test code = 2085-9) 49 mg/dL >39 [facility] Centertriglyceride, serum, [id number] 16:01:00* Test Item Value Reference Range Interpretation Comments triglyceride, serum, fasting (test code = 2571-8) 89 mg/dL 0-14 9 [facility] Centercholesterol, [id number] 16:01:00* Test Item Value Reference Range Interpretation Comments cholesterol, serum (test code = 2093-3) 114 mg/dL 100-199 [facility] Centeralanine aminotransferase (SGPT), [id number] 16:01:00 * Test Item Value Reference Range Interpretation Comments alanine aminotransferase (SGPT), serum (test code = 40) 20 1/L 0-44 [facility] Centeraspartate aminotransferase (SGOT), [id number] 16:01:00* Test Item Value Reference Range Interpretation Comments aspartate aminotransferase (SGOT), serum (test code = 39) 12 1/L 0-40 [facility] Centeralkaline phosphatase, [id number] 16:01:00* Test Item Value Reference Range Interpretation Comments alkaline phosphatase, serum (test code = 3) 57 1/L 39-117 [facility] Centerbilirubin, serum, [id number] 16:01:00* Test Item Value Reference Range Interpretation Comments bilirubin, serum, total (test code = 43) 1.2 mg/dL 0.0-1.2 [facility] Centeralbumin/globulin ratio, [id number] 16:01:00* Test Item Value Reference Range Interpretation Comments albumin/globulin ratio, serum (test code = 146) 2.3 1.2-2. 2 [facility] Healthglobulin, [id number] 16:01:00* Test Item Value Reference Range Interpretation Comments globulin, serum (test code = 3059) 2.3 1.5-4.5 [facility] Healthalbumin, [id number] 16:01:00* Test Item Value Reference Range Interpretation Comments albumin, serum (test code = 2) 5.4 g/dL 3.5-5.5 [facility] Centerprotein, total, [id number] 16:01:00* Test Item Value Reference Range Interpretation Comments protein, total, serum (test code = 36) 7.7 g/dL 6.0-8.5 [facility] Healthcalcium, [id number] 16:01:00* Test Item Value Reference Range Interpretation Comments calcium, serum (test code = 11) 9.8 mg/dL 8.7-10.2 [facility] Centercarbon dioxide, venous [id number] 16:01:00* Test Item Value Reference Range Interpretation Comments carbon dioxide, venous blood (test code = 15) 24 mmol/L 20-29 [facility] Centerchloride, [id number] 16:01:00* Test Item Value Reference Range Interpretation Comments chloride, serum (test code = 13) 104 mmol/L 96-106 [facility] Healthpotassium, [id number] 16:01:00* Test Item Value Reference Range Interpretation Comments potassium, serum (test code = 35) 4.5 mmol/L 3.5-5.2 [facility] Centersodium, [id number] 16:01:00* Test Item Value Reference Range Interpretation Comments sodium, serum (test code = 159) 143 mmol/L 134-144 [facility] Centerurea nitrogen/creatinine ratio, [id number] 16:01:00 * Test Item Value Reference Range Interpretation Comments urea nitrogen/creatinine ratio, serum (test code = 2462) 10 9-20 [facility] HealtheGFR if [id number] 16:01:00* Test Item Value Reference Range Interpretation Comments eGFR if (test code = 200878) 98 mL/min/((173/100). m2) >59 [facility] CenterEstimated Glomerular Filtration Rate (calc)2018-11-22 16:01:00* Test Item Value Reference Range Interpretation Comments Estimated Glomerular Filtration Rate (calc) (test code = 63358) 85 mL/min/((173/100).m2) >59 [facility] Centercreatinine, [id number] 16:01:00* Test Item Value Reference Range Interpretation Comments creatinine, serum (test code = 18) 1.19 mg/dL 0.76-1.27 [facility] Centerurea nitrogen, [id number] 16:01:00* Test Item Value Reference Range Interpretation Comments urea nitrogen, blood (test code = 9) 12 mg/dL 6-20 [facility] Centerblood glucose, [id number] 16:01:00* Test Item Value Reference Range Interpretation Comments blood glucose, random (test code = 8) 98 mg/dL 65-99 [facility] Centerimmature granulocytes, percentage of total cells, blood 2018-11-22 16:01:00* Test Item Value Reference Range Interpretation Comments immature granulocytes, percentage of total cells, bloo d (test code = 195939) 0 % [facility]basophil count, [id number] 16:01:00* Test Item Value Reference Range Interpretation Comments basophil count, absolute (test code = 85827) 0.0 x10E3/uL 0.0-0.2 [facility] HealthEosinophil Absolute [id number] 16:01:00* Test Item Value Reference Range Interpretation Comments Eosinophil Absolute Count (test code = 271475) 0.0 X10E3/UL 0.0-0.4 [facility] Healthmonocyte count, blood, [id number] 16:01:00* Test Item Value Reference Range Interpretation Comments monocyte count, blood, automated (test code = 3076) 0.3 X10E3/UL 0. 1-0.9 [facility] Centerlymphocyte count, blood, [id number] 16:01:00* Test Item Value Reference Range Interpretation Comments lymphocyte count, blood, automated (test code = 3074) 1.2 X10E3/UL 0.7-3.1 [facility] HealthAbsolute Oizyhnjdqmp9667-33-05 16:01:00* Test Item Value Reference Range Interpretation Comments Absolute Neutrophils (test code = 08703) 2.9 X10E3/UL 1.4-7.0 [facility] Centerbasophils as percent of blood ovhgxtvmag3648-90-78 16:01:00* Test Item Value Reference Range Interpretation Comments basophils as percent of blood leukocytes (test code = 2426) 1 % [facility] Healtheosinophils as percent of blood [id number] 16:01:00* Test Item Value Reference Range Interpretation Comments eosinophils as percent of blood leukocytes (test code = 4170) 1 % [facility] Healthmonocytes as percent of blood [id number] 16:01:00* Test Item Value Reference Range Interpretation Comments monocytes as percent of blood leukocytes (test code = 2421) 6 % [facility] Healthlymphocytes as percent of blood [id number] 16:01:00* Test Item Value Reference Range Interpretation Comments lymphocytes as percent of blood leukocytes (test code = 317) 27 % [facility] Healthneutrophils as percent of blood lpbccyqqcu0326-13-05 16:01:00* Test Item Value Reference Range Interpretation Comments neutrophils as percent of blood leukocytes (test code = 316) 65 % [facility] Centerplatelet [id number] 16:01:00* Test Item Value Reference Range Interpretation Comments platelet count (test code = 66) 173 X10E3/UL 150-450 [facility] Centerred blood cell distribution [id number] 16:01:00* Test Item Value Reference Range Interpretation Comments red blood cell distribution width (test code = 1030) 13.1 % 1 2.3-15.4 [facility] corpuscular hemoglobin concentration, [id number] 16:01:00* Test Item Value Reference Range Interpretation Comments mean corpuscular hemoglobin concentration, RBC (test code = 1029) 32.9 G/DL 31.5-35.7 [facility] corpuscular hemoglobin, [id number] 16:01:00* Test Item Value Reference Range Interpretation Comments mean corpuscular hemoglobin, RBC (test code = 1031) 29.5 pg 26 .6-33.0 [facility] corpuscular volume, [id number] 16:01:00* Test Item Value Reference Range Interpretation Comments mean corpuscular volume, RBC (test code = 315) 90 fL 79-97 [facility] Centerhematocrit, [id number] 16:01:00* Test Item Value Reference Range Interpretation Comments hematocrit, blood (test code = 64) 48.7 % 37.5-51.0 [facility] Centerhemoglobin, [id number] 16:01:00* Test Item Value Reference Range Interpretation Comments hemoglobin, blood (test code = 65) 16.0 g/dL 13.0-17.7 [facility] Centererythrocyte (RBC) [id number] 16:01:00* Test Item Value Reference Range Interpretation Comments erythrocyte (RBC) count (test code = 67) 5.42 X10E6/UL 4.14-5.80 [facility] Centerleukocyte count, [id number] 16:01:00* Test Item Value Reference Range Interpretation Comments leukocyte count, blood (test code = 68) 4.5 X10E3/UL 3.4-10.8 [facility] Centervitamin D 25-hydroxy, [id number] 09:38:00* Test Item Value Reference Range Interpretation Comments vitamin D 25-hydroxy, serum (test code = 5875) 40.8 ng/mL 30.0-10 0.0 [facility] Centerhemoglobin A1C, blood, as % of total [id number] 09:38:00* Test Item Value Reference Range Interpretation Comments hemoglobin A1C, blood, as % of total hemoglobin (test code = 4548-4) 5.5 % 4.8-5.6 [facility] CenterLDL cholesterol, [id number] 09:38:00* Test Item Value Reference Range Interpretation Comments LDL cholesterol, serum (test code = 2089-1) 50 mg/dL 0-99 [facility] low density [id number] 09:38:00* Test Item Value Reference Range Interpretation Comments very low density lipoproteins (test code = 2548) 20 mg/dL 5-40 [facility] CenterHDL cholesterol, [id number] 09:38:00* Test Item Value Reference Range Interpretation Comments HDL cholesterol, serum (test code = 2085-9) 37 mg/dL >39 L [facility] Centertriglyceride, serum, [id number] 09:38:00* Test Item Value Reference Range Interpretation Comments triglyceride, serum, fasting (test code = 2571-8) 102 mg/dL 0-14 9 [facility] Centercholesterol, [id number] 09:38:00* Test Item Value Reference Range Interpretation Comments cholesterol, serum (test code = 2093-3) 107 mg/dL 100-199 [facility] Centerbacteria, urine [id number] 09:38:00* Test Item Value Reference Range Interpretation Comments bacteria, urine microscopy (test code = 2406) None seen None see n/Few [facility] Centermucus on dtuktxgquo4206-14-70 09:38:00* Test Item Value Reference Range Interpretation Comments mucus on urinalysis (test code = 2717) Present [facility] Centerepithelial cells, [id number] 09:38:00* Test Item Value Reference Range Interpretation Comments epithelial cells, urine (test code = 2416) 0-10 0-10 [facility] CenterRBC, [id number] 09:38:00* Test Item Value Reference Range Interpretation Comments RBC, Urine (test code = 58380) 0-2 /hpf 0-2 [facility] CenterWBC urine on [id number] 09:38:00* Test Item Value Reference Range Interpretation Comments WBC urine on microscopy (test code = 1016) 0-5 /hpf 0-5 [facility] Centerurinalysis, microscopic [id number] 09:38:00* Test Item Value Reference Range Interpretation Comments urinalysis, microscopic examination (test code = 2566) See below: [facility] Healthnitrate, [id number] 09:38:00* Test Item Value Reference Range Interpretation Comments nitrate, urine (test code = 5135) Negative Negative [facility] Centerurobilinogen, urine, semiquantitative (dipstick) 2016-06-17 09:38:00* Test Item Value Reference Range Interpretation Comments urobilinogen, urine, semiquantitative (dipstick) (test code = 32 6) 1.0 0.2-1.0 [facility] Centerbilirubin, [id number] 09:38:00* Test Item Value Reference Range Interpretation Comments bilirubin, urine (test code = 319) Negative Negative [facility] Centerketones, urine, by test [id number] 09:38:00* Test Item Value Reference Range Interpretation Comments ketones, urine, by test strip (test code = 322) Negative Negati ve [facility] Centerglucose, urine, ifoguhbaesejniwo5929-77-51 09:38:00* Test Item Value Reference Range Interpretation Comments glucose, urine, semiquantitative (test code = 123) Negative Neg ative [facility] Centerprotein, urine, semiquantitative (dipstick)2016-06-17 09:38:00* Test Item Value Reference Range Interpretation Comments protein, urine, semiquantitative (dipstick) (test code = 175 3-3) 1+ Negative/Trace A [facility] Centerleukocyte esterase, urine, by [id number] 09:38:00 * Test Item Value Reference Range Interpretation Comments leukocyte esterase, urine, by dipstick (test code = 327) Negative Negative [facility] Centerappearance, [id number] 09:38:00* Test Item Value Reference Range Interpretation Comments appearance, urine (test code = 328) Clear Clear [facility] Centerurine [id number] 09:38:00* Test Item Value Reference Range Interpretation Comments urine color (test code = 2751) Yellow Yellow [facility] CenterpH, urine, xqudlodwtpriypuc7658-79-11 09:38:00* Test Item Value Reference Range Interpretation Comments pH, urine, semiquantitative (test code = 324) 6.0 5.0-7.5 [facility] Centerspecific gravity, body [id number] 09:38:00* Test Item Value Reference Range Interpretation Comments specific gravity, body fluid (test code = 3512) 1.028 1.005- 1.030 [facility] Centeralanine aminotransferase (SGPT), [id number] 09:38:00 * Test Item Value Reference Range Interpretation Comments alanine aminotransferase (SGPT), serum (test code = 40) 43 1/L 0-44 [facility] Centeraspartate aminotransferase (SGOT), [id number] 09:38:00* Test Item Value Reference Range Interpretation Comments aspartate aminotransferase (SGOT), serum (test code = 39) 23 1/L 0-40 [facility] Centeralkaline phosphatase, [id number] 09:38:00* Test Item Value Reference Range Interpretation Comments alkaline phosphatase, serum (test code = 3) 62 1/L 39-117 [facility] Centerbilirubin, serum, [id number] 09:38:00* Test Item Value Reference Range Interpretation Comments bilirubin, serum, total (test code = 43) 0.9 mg/dL 0.0-1.2 [facility] Centeralbumin/globulin ratio, [id number] 09:38:00* Test Item Value Reference Range Interpretation Comments albumin/globulin ratio, serum (test code = 146) 1.6 1.1-2. 5 [facility] Healthglobulin, [id number] 09:38:00* Test Item Value Reference Range Interpretation Comments globulin, serum (test code = 3059) 3.0 1.5-4.5 [facility] Healthalbumin, [id number] 09:38:00* Test Item Value Reference Range Interpretation Comments albumin, serum (test code = 2) 4.7 g/dL 3.5-5.5 [facility] Centerprotein, total, [id number] 09:38:00* Test Item Value Reference Range Interpretation Comments protein, total, serum (test code = 36) 7.7 g/dL 6.0-8.5 [facility] Healthcalcium, [id number] 09:38:00* Test Item Value Reference Range Interpretation Comments calcium, serum (test code = 11) 9.7 mg/dL 8.7-10.2 [facility] Centercarbon dioxide, venous [id number] 09:38:00* Test Item Value Reference Range Interpretation Comments carbon dioxide, venous blood (test code = 15) 25 mmol/L 18-29 [facility] Healthchloride, [id number] 09:38:00* Test Item Value Reference Range Interpretation Comments chloride, serum (test code = 13) 98 mmol/L 96-106 [facility] Healthpotassium, [id number] 09:38:00* Test Item Value Reference Range Interpretation Comments potassium, serum (test code = 35) 4.1 mmol/L 3.5-5.2 [facility] Centersodium, [id number] 09:38:00* Test Item Value Reference Range Interpretation Comments sodium, serum (test code = 159) 141 mmol/L 134-144 [facility] Centerurea nitrogen/creatinine ratio, [id number] 09:38:00 * Test Item Value Reference Range Interpretation Comments urea nitrogen/creatinine ratio, serum (test code = 2462) 12 8-19 [facility] HealtheGFR if Oroudpoh9340-85-38 09:38:00* Test Item Value Reference Range Interpretation Comments eGFR if (test code = 141263) 141 mL/min/((173/100) .m2) >59 [facility] CenterEstimated Glomerular Filtration Rate (calc)2016-06-17 09:38:00* Test Item Value Reference Range Interpretation Comments Estimated Glomerular Filtration Rate (calc) (test code = 96338) 122 mL/min/((173/100).m2) >59 [facility] Centercreatinine, [id number] 09:38:00* Test Item Value Reference Range Interpretation Comments creatinine, serum (test code = 18) 0.90 mg/dL 0.76-1.27 [facility] Centerurea nitrogen, [id number] 09:38:00* Test Item Value Reference Range Interpretation Comments urea nitrogen, blood (test code = 9) 11 mg/dL 6-20 [facility] Centerblood glucose, [id number] 09:38:00* Test Item Value Reference Range Interpretation Comments blood glucose, random (test code = 8) 88 mg/dL 65-99 [facility] Centerimmature granulocytes, percentage of total cells, blood 2016-06-17 09:38:00* Test Item Value Reference Range Interpretation Comments immature granulocytes, percentage of total cells, bloo d (test code = 130517) 0 % [facility] Centerbasophil count, [id number] 09:38:00* Test Item Value Reference Range Interpretation Comments basophil count, absolute (test code = 67614) 0.0 x10E3/uL 0.0-0.2 [facility] CenterEosinophil Absolute [id number] 09:38:00* Test Item Value Reference Range Interpretation Comments Eosinophil Absolute Count (test code = 445689) 0.1 X10E3/UL 0.0-0.4 [facility] Centermonocyte count, blood, [id number] 09:38:00* Test Item Value Reference Range Interpretation Comments monocyte count, blood, automated (test code = 3076) 0.3 X10E3/UL 0. 1-0.9 [facility] Centerlymphocyte count, blood, [id number] 09:38:00* Test Item Value Reference Range Interpretation Comments lymphocyte count, blood, automated (test code = 3074) 1.6 X10E3/UL 0.7-3.1 [facility] CenterAbsolute Lzizqyrbrbx5549-51-16 09:38:00* Test Item Value Reference Range Interpretation Comments Absolute Neutrophils (test code = 12918) 1.7 X10E3/UL 1.4-7.0 [facility] Centerbasophils as percent of blood lqqotwqohk3261-18-84 09:38:00* Test Item Value Reference Range Interpretation Comments basophils as percent of blood leukocytes (test code = 2426) 1 % [facility] Centereosinophils as percent of blood [id number] 09:38:00* Test Item Value Reference Range Interpretation Comments eosinophils as percent of blood leukocytes (test code = 4170) 2 % [facility] Healthmonocytes as percent of blood [id number] 09:38:00* Test Item Value Reference Range Interpretation Comments monocytes as percent of blood leukocytes (test code = 2421) 9 % [facility] Centerlymphocytes as percent of blood [id number] 09:38:00* Test Item Value Reference Range Interpretation Comments lymphocytes as percent of blood leukocytes (test code = 317) 42 % [facility] Centerneutrophils as percent of blood tpoluwksok2674-30-10 09:38:00* Test Item Value Reference Range Interpretation Comments neutrophils as percent of blood leukocytes (test code = 316) 46 % [facility] Centerplatelet [id number] 09:38:00* Test Item Value Reference Range Interpretation Comments platelet count (test code = 66) 184 X10E3/UL 150-379 [facility] Centerred blood cell distribution [id number] 09:38:00* Test Item Value Reference Range Interpretation Comments red blood cell distribution width (test code = 1030) 13.5 % 1 2.3-15.4 [facility] corpuscular hemoglobin concentration, [id number] 09:38:00* Test Item Value Reference Range Interpretation Comments mean corpuscular hemoglobin concentration, RBC (test code = 1029) 34.5 G/DL 31.5-35.7 [facility] [facility], [id number] 09:38:00* Test Item Value Reference Range Interpretation Comments mean corpuscular hemoglobin, RBC (test code = 1031) 29.5 pg 26 .6-33.0 [facility] corpuscular volume, [id number] 09:38:00* Test Item Value Reference Range Interpretation Comments mean corpuscular volume, RBC (test code = 315) 85 fL 79-97 [facility] [id number] 09:38:00* Test Item Value Reference Range Interpretation Comments hematocrit, blood (test code = 64) 46.9 % 37.5-51.0 [facility], [id number] 09:38:00* Test Item Value Reference Range Interpretation Comments hemoglobin, blood (test code = 65) 16.2 g/dL 12.6-17.7 [facility] [id number] 09:38:00* Test Item Value Reference Range Interpretation Comments erythrocyte (RBC) count (test code = 67) 5.50 X10E6/UL 4.14-5.80 [facility], [id number] 09:38:00* Test Item Value Reference Range Interpretation Comments leukocyte count, blood (test code = 68) 3.8 X10E3/UL 3.4-10.8 [facility]
[2020-02-18] MEDS ORDERED: SODIUM CHLORIDE 0.9% 1000ML 1,000 ML IV STA (22:03)
--- NOTE | 2020-02-18 22:07 | Emergency Department Note ---
History of Present Illnes History of Present Illness Chief Complaint: Abdominal Complaints History of Present Illness This is a 24 year old male, c/o UPPER ABD PAIN WITH NAUSEA AFTER EATING (NURSING NOTE: LOWER). He went to [employer] and had a large meal. LAST BM 2 DAYS AGO. PT ONLY HX IS AUTISM . Historian: Patient Arrival Mode: Car Onset (how long ago): hour(s) Radiation: Reports non-radiation Severity: moderate Onset quality: gradual Duration (how long): hour(s) Timing of current episode: constant Progression: unchanged Chronicity: new Relieving factors: none Exacerbating factors: none Associated symptoms: Reports denies other symptoms Treatments prior to arrival: none Past Medical/Family History Physician Review I have reviewed the patient's past medical and family history. Any updates have been documented here. Past Medical History Recent Fever: No Clinical Suspicion of Infectio: No New/Unexplained Change in Ment: No Other Medical History: AUTISM Past Surgical History: Appendectomy Social History Smoking Cessation: Never Smoker Counseling Performed: No Alcohol Use: None Any Illegal Drug Use: No Physically hurt or threatened: No Other Any Pre-Existing Lines (PICC,: No Review of Systems Review of Systems Constitutional: Reports no symptoms EENTM: Reports no symptoms Cardiovascular: Reports no symptoms Respiratory: Reports no symptoms Gastrointestinal: Reports as per HPI Genitourinary: Reports no symptoms Musculoskeletal: Reports no symptoms Integumentary: Reports no symptoms Neurological: Reports no symptoms Psychological: Reports no symptoms Endocrine: Reports no symptoms Hematological/Lymphatic: Reports no symptoms Physical Exam Related Data Allergies: Coded Allergies: No Known Allergies (Unverified , 02/18/20) Triage Vital Signs Vital Signs Date Time Temp Pulse Resp B/P (MAP) Pulse Ox O2 Delivery O2 Flow Rate FiO2 02/18/20 22:00 97.2 84 18 136/84 99 Vital signs reviewed: Yes Physical Exam CONSTITUTIONAL Constitutional: Present well-developed, Present well-nourished HENT HENT: Present normocephalic, Present atraumatic, Present oropharynx clear/moist, Present nose normal HENT L/R: Present left ext ear normal, Present right ext ear normal EYES Eyes: Reports PERRL, Reports conjunctivae normal NECK Neck: Present ROM normal PULMONARY Pulmonary: Present effort normal, Present breath sounds normal CARDIOVASCULAR Cardiovascular: Present regular rhythm, Present heart sounds normal, Present capillary refill normal, Present normal rate GASTROINTESTINAL Abdominal: Present soft, Present distension, Present tender (luq) GENITOURINARY Genitourinary: Present exam deferred SKIN Skin: Present warm, Present dry MUSCULOSKELETAL Musculoskeletal: Present ROM normal NEUROLOGICAL Neurological: Present alert, Present oriented x 3, Present no gross motor or sensory deficits PSYCHOLOGICAL Psychological: Present mood/affect normal, Present judgement normal Results Laboratory Lab results reviewed: Yes Laboratory comments unremarkable Imaging Imaging results reviewed: Yes Imaging Comments large amount of stomach contents ( large Goldman meal prior to the pain) Diagnostics Tests Diagnostic test(s) reviewed: Yes Assessment & Plan Medical Decision Making MDM indigestion, ileus, SBO, diverticular dz Reassessment Reassessment time: 23:28 Reassessment doing better, taking po well, soft abdomen Assessment & Plan Final Impression: (1) Acid indigestion (2) Reflux gastritis Depart Disposition: HOME, SELF-CARE Last Vital Signs Date Time Temp Pulse Resp B/P (MAP) Pulse Ox O2 Delivery O2 Flow Rate FiO2 02/18/20 22:00 97.2 84 18 136/84 99 Home Meds Active Scripts Mag Hydrox/Al Hydrox/Simeth (MAALOX MAXIMUM STRENGTH SUSP) 355 Ml Oral.susp, 30 ML PO Q4H PRN for ABDOMINAL PAIN, #120 ML Prov:AMBER SPARKS MD 02/18/20 Ondansetron Hcl* (ZOFRAN*) 4 Mg Tablet, 4 MG SL Q6H PRN for NAUSEA, #14 MG 0 Refills Prov:AMBER SPARKS MD 02/18/20 Omeprazole (OMEPRAZOLE) 20 Mg Tablet.dr, 20 TAB PO BID, #30 Prov:AMBER SPARKS MD 02/18/20 Physician Attestation Provider Attestation no acute surgical abdomen AMBER SPARKS MD Feb 18, 2020 22:07
[2020-02-18] MEDS ORDERED: FAMOTIDINE 20 MG/2 ML VIAL IV ONE ×2 (22:15)
[2020-02-18] MEDS ORDERED: SODIUM CHLORIDE 0.9% 1000ML 1,000 ML ONE (22:15)
[2020-02-18] MEDS ORDERED: ONDANSETRON HCL INJ 2MG/ML 2ML 2 MG/ML VIAL ONE (22:15)
[2020-02-18] MEDS ORDERED: ONDANSETRON HCL INJ 2MG/ML 2ML 2 MG/ML VIAL IV ONE (22:15)
[2020-02-18] MEDS ORDERED: SODIUM CHLORIDE 0.9% 50ML 50 ML ONE (22:22)
[2020-02-18] MEDS ORDERED: IOPAMIDOL 370 MG/ML 200 ML INFUS..BTL INJ ONE (22:22)
--- NOTE | 2020-02-18 23:15 | Diagnostic Imaging Report ---
EXAM: CT Abdomen and Pelvis WITH contrast INDICATION: Left-sided abdominal pain, appendectomy, look for small bowel obstruction COMPARISON: None. TECHNIQUE: Abdomen and pelvis were scanned utilizing a multidetector helical scanner from the lung base to the pubic symphysis after administration of IV contrast. Coronal and sagittal reformations were obtained. Routine protocol was performed. Scan was performed when during portal venous phase. IV CONTRAST: 100 mL of Isovue 370 ORAL CONTRAST: None COMPLICATIONS: None RADIATION DOSE: Total DLP: 869 mGy*cm Estimated effective dose: (DLP x 0.015 x size factor) mSv CTDIvol has been reviewed. It is below the limits set by the Radiation Protocol Committee (RPC). Dose modulation, iterative reconstruction, and/or weight based adjustment of the mA/kV was utilized to reduce the radiation dose to as low as reasonably achievable. FINDINGS: LINES and TUBES: None. LOWER THORAX: Unremarkable HEPATOBILIARY: No focal hepatic lesions. No biliary ductal dilation. GALLBLADDER: Small hypodensities layering within the gallbladder lumen. Distended elongated gallbladder, greater than 10 cm in long axis. No wall thickening. SPLEEN: No splenomegaly. PANCREAS: No focal masses or ductal dilatation. ADRENALS: No adrenal nodules KIDNEYS/URETERS: Kidneys enhance symmetrically. No hydronephrosis. No cystic or solid mass lesions. No stones. GI TRACT: No abnormal distention, wall thickening, or evidence of bowel obstruction. There are post surgical changes of appendectomy. PELVIC ORGANS/BLADDER: Unremarkable. LYMPH NODES: No lymphadenopathy. VESSELS: Unremarkable. PERITONEUM / RETROPERITONEUM: No free air or fluid. BONES: Unremarkable. SOFT TISSUES: Unremarkable. IMPRESSION: No evidence of small bowel obstruction. Suspect cholelithiasis. Mild gallbladder distention. If there is right upper quadrant pain/tenderness, consider right upper quadrant ultrasound. Signed by: Joon Navarrete DO on 02/18/2020 11:11 PM
[2020-02-18] MEDS ORDERED: ZOFRAN4 MG SL (23:33)
[2020-02-18] MEDS ORDERED: MAALOX MAXIMUM355 ML PO (23:33)
[2020-02-18] MEDS ORDERED: OMEPRAZOLE20 M1 PO (23:33)
[2020-02-18 23:37] VITALS: BP 134/81
== END 2020-02-19 00:33 | disposition home or self-care (01) ==
LOC: FSED 21:50
DX: R10.30 Lower abdominal pain, unspecified (principal); K30 Functional dyspepsia; K29.70 Gastritis, unspecified, without bleeding; F84.0 Autistic disorder
CPT/HCPCS: 74177; 80048; 80076; 81003; 85025; 96374; 96376; 99284; J2405; J7030; Q9967

== ENCOUNTER 2020-04-03 23:17 | Inpatient (IN) | payer MEDICARE, OTHER ==
[~2020-04-03] VITALS: Ht 177.8 cm; Wt 93.4 kg
[~2020-04-03 23:17] MED LIST: MAALOX MAXIMUM355 ML PO; OMEPRAZOLE20 M1 PO; ZOFRAN4 MG SL
--- OUTSIDE RECORDS SUMMARY | 2020-04-03 23:59 | XMS REPORT | Continuity of Care Document ---
Author Author Edward Hakeem [employer] BiopharmaceuticalsSudhakar Peek Address Unknown Phone Unavailable Care Team Providers Care Architectural Practice Manager Name Role Phone [employer] Unavailable Un available Problems Problem Status Onset Date Classification Date Reported Comments Source BMI 29.0-29.9,adult Active Problem 03/12/2019 Feroz Guthrie Major depressive disorder, single episode, severe Active Problem 06/14/2017 Ferozmerlin Guthrie BMI 30.0-30.9,adult Active Diagnosis 06/14/2017 Feroz Guthrie Autistic disorder, residual Ac tive Problem Feroz Guthrie Mild mental retardation Active Problem 03/12/2019 Ferozmerlin Guthrie Autistic disorder Active Problem 03/12/2019 Feroz Jerri Pharyngitis Active Diagnosis 06/03/2018 Feroz Jerri URI (upper respiratory infection) Active Diagnosis 0 06/14/2017 Feroz Jerri Fever Active Diagnosis 06/03/2018 Feroz Jerri Major depressive disorder, single episod e, severe with psychotic features Active Prob killian 03/12/2019 Feroz Guthrie Routine general medical examination at a health care facility Active Diag nosis 07/13/2018 Ferozanalia Guthrie Flu-like symptoms Active Diagnosis 06/03/2018 Feroz Guthrie Screening for Alcoholism/Depression Active Diagnosis 0 06/03/2018 Feroz Stacieaarnaldo Gastroenteritis Active Diagnosis 12/04/2016 Feroz Stacieaarnaldo Nausea Active Diagnosis 12/04/2016 Feroz Stacieaarnaldo Headache Active Diagnosis 06/03/2018 Feroz Jerri BMI 27.0-27.9,adult Active Problem 03/12/2019 Feroz Stacieaarnaldo URI with cough and congestion Active Diagnosis 0 06/03/2018 Ferozmerlin Guthrie Immunization due Active Diagnosis 03/12/2019 Feroz Guthrie Cellulitis of great toe of right foot Active Diagnosis 03/12/2019 Feroz Guthrie BMI 26.0-26.9,adult Active Diagnosis 03/12/2019 Feroz Jerri Vitamin D deficiency Active Problem 03/12/2019 Feroz Jerri Frequency of micturition Active Diagnosis 03/27/2016 Feroz Guthrie Cough Active Diagnosis 03/27/2016 Feroz Guthrie Medications Medication Details Route Status Patient Instructions Ordering Provider Order Date Source Bactrim DS 1 tablet Orally Active 800-160 MG Orally Twice a day [facility] Polyethylene Glycol as directed orally Active 527gm orally as directed [facility] 01/18/2014 [facility] Vitamin D 1 capsule Orally Active 49649 UNIT Orally once a week [facility] 06/27/[facility] Divalproex Sodium ER not defin ed Orally Active 250 MG [facility]ally [facility] Aripiprazole 1 tablet Orally Active 5 MG Orally Once a day [facility] Polyethylene Glycol 3350 TAKE DIRECTED NA Active [facility] LoHist-DM 10 ml Orally Active 5-2-10 MG/5ML Orally ev gracie 6 hrs [facility] Ibuprofen 1 tablet with food o r milk as needed Orally Active 400 MG Orally three times a day (tid) as needed (prn) [facility] Vitamin D (Ergocalciferol) DEVIN E ONE CAPSULE BY MOUTH EVERY WEEK DIRECTED NA Active 87009 UNIT [facility] Bromfed DM 10 ml as needed Orally Active 30-2-10 MG/5ML Orally every 6 hrs [facility] Risperidone 1 tablet Orally Active 1 MG Orally Once a day [facility] Benztropine Mesylate 1 ml Injection Active 1 MG/ML Injection Once a day [facility] Strattera 1 capsule in the mor lizbeth Orally Active 60 MG Orally Once a day [facility] Pantoprazole Sodium 1 tablet Orally Active 40 MG Orally Once a day [facility] Guanfacine HCl 1 tablet at bed time Orally Active 1 MG Orally Once a day [facility] Ondansetron HCl 1 tablet Orally Active 4 mg Orally every 4 hrs prn nausea Mussletty Quinonesarnaldo Amphetamine Salt Combo not def ined NA [...] 75 MG Orally Twice a da y [facility] Guthrie Ibuprofen 1 tablet as needed Orally Active 600 MG Orally every 6 hrs Staciearnaldo Guthrie Risperidone 1 tablet Orally Active 1 MG Orally Once a day Staciearnaldo Guthrie LoHist-DM 10 ml Orally Active 5-2-10 MG/5ML Orally ev gracie 6 hrs Jerri Guthrie Divalproex Sodium ER 2 tablets Orally Active 250 MG Orally Twice a day Staciearnaldo [facility]arnal[facility] Guanfacine HCl 1 tablet at bed time Orally Active 1 MG Orally Once a day Staciearnaldo [facility]arnaldo Benzonatate 1 capsule as needed Orally [...] 1 MG/ML Injection Once a day Jerri Redman [facility] Bromfed DM 10 ml as needed Orally Active 30-2-10 MG/5ML Orally every 6 hrs Staciearnaldo [facility]arnaldo Aripiprazole 1 tablet Orally Active 5 MG Orally Once a day Staciearnaldo [facility]arnal[facility] Amoxicillin 1 tablet Orally Active 875 MG Orally Twice a d ay Jerri Quinonesarnaldo Atomoxetine HCl 1 capsule in t he morning Orally Active 60 MG Orally Once a day Staciearnaldo Quinonesarnaldo D3-50 1 capsule Orally Active 44397 UNIT Orally once a week [facility] Amoxicillin 1 tablet Orally Active 500 MG Orally three kaylie es a day (tid) Jerri Guthrie Vitamin D 1 capsule Orally Active 74311 UNIT Orally once a week Mussletty Quinonesaarnaldo Amphetamine Salt Combo Unknown NA Active 20 mg Mussaarnaldo Mur tazdeloris Guthrie Allergies, Adverse Reactions, Alerts Substance Category [...] F 11/22/2016 Feroz Mussaji Weight 214 11/22/2016 Freoz Mussaji Height 70 0 11/22/2016 Feroz Mussaji [...] Mussaji Temperature Oral (F) 97.4 F 06/26/2013 Feroz Mussletty Weight 178 06/26/2013 Feroz Guthrie Height 67 0 06/26/2013 Feroz Guthrie Encounters Location Location Details Encounter Type Encounter Number Reason For Visit Attending Provider ADM Date DC Date Status Source Feroz Berry DO, PA Unknown [id number] 06/27/19 14 06/27/2013 Feroz Berry DO, [place] Unknown [id number] 06/27/19 14 06/27/2013 Feroz Berry DO, PA Unknown [id number] 06/27/19 14 06/27/2013 Feroz Berry DO, PA Unknown [id number] 06/27/19 14 06/27/2013 Feroz Berry DO PA Test results [id number] 07/02/19 14 07/02/2013 Feroz Berry DO PA Test results [id number] 07/02/19 14 07/02/2013 Feroz Berry DO PA Test results [id number] 07/02/19 14 07/02/2013 Feroz Berry DO PA Test results [id number] 09/13/19 15 09/12/2014 Feroz Berry DO PA Test results [id number] 09/13/19 15 09/12/2014 Feroz Berry DO PA Test results [id number] 08/28/19 16 08/28/2015 Feroz Berry DO, PA Test results [id number] 08/28/19 16 08/28/2015 Feroz Berry DO PA Consult [id number] 03/15/20 16 03/15/2016 Feroz Guthrie Procedures No [...]
[2020-04-04] VITALS (8 sets, daily range): BP systolic 117–145; BP diastolic 78–91
--- OUTSIDE RECORDS SUMMARY | 2020-04-04 | XMS REPORT | Continuity of Care Document ---
Author Author [facility] t Organization [facility] Address [address] [place] [address] [place] [id number] Phone Unavailable Care Team Providers Care Area Plant Manager Name Role Phone DO WHIT GUTHRIE PCP hCaka Mcclain Attphys Shakila Topete Attphys Unavailable Guillaume-SacJie manuel Attphys Unavailable Tejas SPARKS Attphys Unavailable Lucio Perrin Attphys Unavailable Crystal Higginbotham Attphys Unavailable Lalo Enriquez Attphys Katty Romo Attphys Unavailable Arabella, Latahsa Attphys Radha Ryan Attphys Unavailable Hart, Kamini Attphys Unavailable Law, Karina Attphys Unavailable Shanks, Natasha Attphys Barrios, Nori Attphys Unavailable Barrios, Alina Attphys Unavailable Crockett, Christelle Attphys Unavailable Dodd, Moon Attphys Unavailable Scott Kely Attphys Unavailable Stevens, Caitlin Attphys Unavailable Ramsey Kaplan, Shay Attphys Unavailable Patrica Carmichael Attphys Unavailable Chaka Mcclain Unavailable ShanksSima urenaica Unavailable Payers Payer Name Policy Type Policy Number Effective Date Expiration Date S reggie [facility] [id number] 00:00:00 2016 00:00:00 [facility] Health Problems Condition Name Condition Details Condition Category Status Onset Date Resolution Date Last Treatment Date Treating Clinician Comments Source 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, 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 Condition Active 2018-11-22 00: 00:00 2018-11-22 15:45:51 JohnyChaka [facility] Screening for anemia Condition Active 2016-08-20 00:00:00 2016-08-20 17:41:23 Natasha Shanks [facility] Obesity Condition Active 2016-06-17 00:00:00 2016-06-17 09:00:05 Natasha Shanks [facility] Health PROBLEM R/T PHASE OF LIFE Condition Active 2016-02-12 00: 00:00 2016-02-12 09:10:32 JohnyChaka [facility] ADHD, COMBINED PRESENTATION, MILD Condition Active 02-11 00:00:00 2016-02-12 09:10:32 JohnyChaka [facility] Left lower quadrant abdominal pain Problem Active [facility] Bile-induced gastritis Problem Active [facility] Indigestion Problem Active [facility] BMI 29.0-29.9,adult BMI 29.0-29.9,adult Active Problem 03/12/2019 Whitmerlin Guthrie Problem Active 2019-03-12 02:00:13 Edward Palacio Major depressive disorder, single episode, severe Major depressive disorder, single episode, severe Active Problem 06/14/2017 Whit Jerri Problem Active 2017-06-14 03:00:05 [facility] BMI 30.0-30.9,adult BMI 30.0-30.9,adult Active Diagnosis 06/14/2017 Whit Jerri Diagnosis Active 2017-06-14 03:00:0 5 Edward Palacio Mild mental retardation Mild mental retardation Active Problem 03/12/2019 Whit Mussaji Problem Active 2019-03-12 0 2:00:13 Edward Palacio Autistic disorder Auti stic disorder Active Problem 03/12/2019 Whit Mussaji Problem Active 2019-03-12 02:00:13 Edward Palacio Pharyngitis Phar yngitis Active Diagnosis 06/03/2018 Whit Jerri Diagnosis Active 2018-06-03 03:00:05 Edward Palacio Fever Feve r Active Diagnosis 06/03/2018 Whit Jerri Diagnosis Active 2018-06-03 03:00:05 Edward Palacio Major depressive disorder, single episode, 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, single episode, severe with psychotic features Active Problem 03/12/2019 Whitmerlin Guthrie Problem Active 2019-03-12 02:00:13 Edward Palacio Routine general medical examination at a health care f acility Routine general medical examination at a health care facility Active Diagnosis 07/13/2018 Whitmerlin Guthrie Diagnosis Active 2018-07-13 03:05:4 8 Edward Palacio Flu-like symptoms Flu- like symptoms Active Diagnosis 06/03/2018 Whit Jerri Diagnosis Active 2018-06-03 03:00:0 5 Edward Palacio Screening for Alcoholism/Depression Screening for Alcoholism/Depression Active Diagnosis 06/03/2018 Whit Jerri Diagnosis Active 2018-06-03 03:00:05 Kathy Palacio Gastroenteritis Meera roenteritis Active Diagnosis 12/04/2016 Whitmerlin Guthrie Diagnosis Active 2016-12-04 02:00:42 Edward Palacio Nausea Naus ea Active Diagnosis 12/04/2016 Whitmerlin Guthrie Diagnosis Active 2016-12-04 02:00:42 Edward Palacio Headache Head ache Active Diagnosis 06/03/2018 Whitmerlin Guthrie Diagnosis Active 2018-06-03 03:00:05 [facility] BMI 27.0-27.9,adult BMI 27.0-27.9,adult Active Problem 03/12/2019 Whitmerlin Guthrie Problem Active 2019-03-12 02:00:13 Ewdard Palacio URI with cough and congestion URI with cough and congestion Active Diagnosis 06/03/2018 Whitmerlin Guthire Diagnosis Active 2018-06-03 03:00:05 Edward Palacio Immunization due Immu nization due Active Diagnosis 03/12/2019 Whitmerlin Guthrie Diagnosis Active 2019-03-12 02:00:13 Edward Palacio Cellulitis of great toe of right foot Cellulitis of great toe of right foot Active Diagnosis 03/12/2019 Whitmerlin Guthrie Diagnosis Active 2019-03-12 02:00:13 Kathy Palacio BMI 26.0-26.9,adult BMI 26.0-26.9,adult Active Diagnosis 03/12/2019 Whitmerlin Guthrie Diagnosis Active 2019-03-12 02:00:1 3 Edward Palacio Vitamin D deficiency Darlyn min D deficiency Active Problem 03/12/2019 Whit Guthrie Problem Active 2019-03-12 02:00:13 Edward Palacio Frequency of micturition Freq uency of micturition Active Diagnosis 03/27/2016 Whit Guthrie Diagnosis Active 2015 02:04:41 Edward Palacio Cough Coug h Active Diagnosis 03/27/2016 Whit Guthrie Diagnosis Active 2016-03-27 02:04:41 Edward Palacio Allergies, Adverse Reactions, Alerts Allergy Name Allergy Type Status Severity Reaction(s) Onset Date Inacti ve Date Treating Clinician Comments Source KodiAFloyd Rivera.Kevin. Active Info Not Available 2019-02-27 00:00:00 Edward Palacio Family History Family Member Diagnosis Comments Start Date Stop Date Source Unknown Family Member Family History 2016-03-27 02:04:41 2 02:04:41 Edward Palacio Social History Social Habit Start Date Stop Date Quantity Comments Source social history reviewed E&M 2020-04-03 10:40:37 2020-04-03 10:40 :37 reviewed today [facility] social history E&M 2020-04-03 10:40:37 2020-04-03 10:40:37 Lives at home with mother and father; has 2 brothers ages 40 and 36 as of 02/12/16Not homeless. Has own roomNot employed. Finished HS in 2012, hopes to take college courses Sexually Active: No. [facility] drug use, illicit 2020-04-03 10:40:37 2020-04-03 10:40:37 Never [facility] alcohol use 2020-04-03 10:40:37 2020-04-03 10:40:37 Never [facility] smoking, advice to quit 2020-04-03 10:40:37 2020-04-03 10:40:37 Yes [facility] passive cigarette smoke exposure 2016-06-17 08:44:15 2016-06-17 08:44 :15 No [facility] patient considered to be homeless 2016-02-12 08:02:24 2016-02-12 08:0 2:24 No [facility] home/family situation, assessment 2016-02-12 08:02:24 2016-02-12 08:02:24 Has own room [facility] family support 2016-02-12 08:02:24 2016-02-12 08:02:24 Lives at home with mother and father; has 2 brothers ages 40 and 36 as of 02/12/16 [facility] Sex Assigned At 1995 00:00:00 1995 00:00:00 Male [facility] Smoking Status Start Date Stop Date Source Never smoked tobacco (finding) L Pending sale to [facility] Medications Ordered Medication Name Filled Medication Name Start Date Stop Da te Current Medication? Ordering Clinician Indication Dosage Frequency Signature (SIG) Comments Components Source Mag Hydrox/Al Hydrox/Simeth (Maalox Maximum Strength S longterm) 355 Ml ORAL.SUSP Mag Hydrox/Al Hydrox/Simeth (Maalox Maximum Strength Susp) 355 Ml ORAL.SUSP 2020-02-18 23:33:00 Yes 30 Every 4 Hour s as needed for Abdominal Pain [facility] Omeprazole Omeprazole 2020-02-18 23:33:00 Yes 20 Twi ce A Day [facility] Ondansetron Hcl (Zofran*) 4 Mg TABLET Ondansetron Hcl (Zofra n*) 4 Mg TABLET 2020-02-18 23:33:00 Yes 4 Every 6 Hours as n eeded for Nausea [facility] Aripiprazole 2019-03-12 02:00:13 Yes Whit Mussaji 1 tablet [facility] LoHist-DM 2019-03-12 02:00:13 Yes [facility]ussaji [facility] Ibuprofen 2019-03-12 02:00:13 Yes Whit Mussaji 1 tablet with food or milk as needed [facility] Bromfed DM 2019-03-12 02:00:13 Yes Whit Mussaji 10 ml as needed [facility] Risperidone 2019-03-12 02:00:13 Yes Whit Mussaji 1 tablet [facility] Benzonatate 2019-03-12 02:00:13 Yes Whit Mussaji 1 capsule as needed [facility] Ibuprofen 2019-03-12 02:00:13 Yes Whit Mussaji 1 tablet as needed [facility] Divalproex Sodium ER 2019-03-12 02:00:13 Yes Whit Mus osman 2 tablets [facility] Amoxicillin 2019-03-12 02:00:13 Yes Whit Mussaji 1 tablet [facility] Atomoxetine HCl 2019-03-12 02:00:13 Yes Whit Mussaji 1 capsule in the morning [facility] D3-50 2019-03-12 02:00:13 Yes Whit Mussaji 1 c apsule [facility] Bactrim DS 2019-02-27 00:00:00 Yes Whit Mussaji 1 tablet [facility] Divalproex Sodium ER 2018-07-13 03:05:48 Yes Whit Mus osman not defined [facility] ABILIFY (ARIPIPRAZOLE) 10 MG TABS 2018-01-18 00:00:00 Arturo Mcclain .5{Tablet} 2xD Take one half tablet By Mouth Twice a Day [facility] Polyethylene Glycol 3350 2017-07-02 03:00:03 Yes Whit Mussaji TAKE DIRECTED [facility] Vitamin D (Ergocalciferol) 2017-07-02 03:00:03 Yes Murta za Mussaji TAKE ONE CAPSULE BY MOUTH EVERY WEEK DIRECTED [facility] Benztropine Mesylate 2017-07-02 03:00:03 Yes Whit Mussaji 1 ml [facility] Strattera 2017-07-02 03:00:03 Yes Whit Mussaji 1 capsule in the morning [facility] Pantoprazole Sodium 2017-07-02 03:00:03 Yes Whit Mussaji 1 tablet [facility] Guanfacine HCl 2017-07-02 03:00:03 Yes Whit Mussaji 1 tablet at bedtime [facility] Ondansetron HCl 2017-07-02 03:00:03 Yes Whit Mussaji 1 tablet [facility] Amphetamine Salt Combo 2017-07-02 03:00:03 Yes Whit M ussaji not defined [facility] Ibuprofen 2017-07-02 03:00:03 Yes Whit Mussaji 1 tablet as needed [facility] Ibuprofen 2017-07-02 03:00:03 Yes Whit Mussaji 20 ml [facility] Tamiflu 2017-07-02 03:00:03 Yes Whit Mussaji 1 capsule [facility] Risperidone 2016-12-04 02:00:42 Yes Whit Mussaji 1 tablet [facility] LoHist-DM 2016-12-04 02:00:42 Yes Whit Mussaji 10 ml [facility] Guanfacine HCl 2016-12-04 02:00:42 Yes Whit Mussaji 1 tablet at bedtime [facility] Benzonatate 2016-12-04 02:00:42 Yes Whit Mussaji 1 capsule as needed [facility] Strattera 2016-12-04 02:00:42 Yes Whit Mussaji 1 capsule in the morning [facility] Ibuprofen 2016-12-04 02:00:42 Yes Whit Mussaji 1 tablet as needed [facility] Ibuprofen 2016-12-04 02:00:42 Yes Whit Mussaji 20 ml [facility] Benztropine Mesylate 2016-12-04 02:00:42 Yes Whit Mussaji 1 ml [facility] Bromfed DM 2016-12-04 02:00:42 Yes Whit Mussaji 10 ml as needed [facility] Aripiprazole 2016-12-04 02:00:42 Yes Whit Mussaji 1 tablet [facility] (GUANFACINE HCL) 1 MG TABS 2016-07-05 00:00:00 2017-09-28 00:00:00 No take one tablet By Mouth daily (can take one half tablet two times daily) [facility] Amoxicillin 2016-03-27 02:04:41 Yes Whit Mussaji 1 tablet [facility] Vitamin D 2016-03-27 02:04:41 Yes Whit Stacieaji 1 capsule [facility] Amphetamine Salt Combo 2016-03-27 02:04:41 Yes Whit farr Unknown [facility] ANTOINETTE (ATOMOXETINE HCL) 60 MG CAPS 2016-02-12 00:00:00 Yes Chaka Johny take one tablet By Mouth daily [facility] DEPAKOTE SPRINKLES (DIVALPROEX SODIUM) 125 MG CSDR 2016-01 00:00:00 Yes Chaka Johny Take two capsules By Mouth Twice a Day [facility] ABILIFY (ARIPIPRAZOLE) 5 MG TABS 2016-02-12 00:00:00 2017-09 00:00:00 No take one tablet By Mouth once daily at bedtime [facility] Polyethylene Glycol 2014-01-18 00:00:00 Yes Whit Stacie wilsoni as directed [facility] Vitamin D 2013-06-27 00:00:00 Yes Whitmerlin Guthrie 1 capsule [facility] Immunizations Ordered Immunization Name Filled Immunization Name Date Status Comments Source hpv #3 2016-12-15 09:45:[address] [facility] hpv #2 2016-08-16 10:20:29 Completed [facility] flu vax 2016-06-17 08:44:15 Completed Legac [facility] gardasil 2016-06-17 08:44:15 Completed Legac [facility] Vital Signs Vital Name Observation Time Observation Value Comments Source Weight 2020-02-18 22:00:00 200 [lb_av] [facility] BMI (Body Mass Index) 2020-02-18 22:00:00 28.7 kg/m2 [facility] blood pressure, diastolic 2019-06-05 14:01:59 85 mm[Hg] [facility] blood pressure, systolic 2019-06-05 14:01:59 127 mm[Hg] [facility] pulse rate 2019-06-05 14:01:59 107 /min [facility] weight E&M 2019-06-05 14:01:59 196.50 [lb_av] [facility] weight in kilograms E&M 2019-06-05 14:01:59 89.32 kg [facility] height in centimeters E&M 2019-06-05 14:01:59 177.16 cm [facility] blood pressure, diastolic 2019-04-09 11:28:40 78 mm[Hg] [facility] blood pressure, systolic 2019-04-09 11:28:40 125 mm[Hg] [facility] pulse rate 2019-04-09 11:28:40 101 /min [facility] weight E&M 2019-04-09 11:28:40 189.13 [lb_av] [facility] weight in kilograms E&M 2019-04-09 11:28:40 85.97 kg [facility] height in centimeters E&M 2019-04-09 11:28:40 177.16 cm [facility] Heart Rate 2019-02-27 19:45:00 [facility] Diastolic (mm Hg) 2019-02-27 19:45:00 [facility] Systolic (mm Hg) 2019-02-27 19:45:00 Herb [facility] Pax Temperature Oral (F) 2019-02-27 19:45:00 98 F [facility] Weight 2019-02-27 19:45:00 [facility] Height 2019-02-27 19:45:00 [facility] blood pressure, diastolic 2018-11-22 15:15:22 83 mm[Hg] [facility] blood pressure, systolic 2018-11-22 15:15:22 135 mm[Hg] [facility] rate 2018-11-22 15:15:22 98 /min [facility] weight E&M 2018-11-22 15:15:22 189.80 [lb_av] [facility] weight in kilograms E&M 2018-11-22 15:15:22 86.27 kg [facility] height in centimeters E&M 2018-11-22 15:15:22 177.16 cm [facility] blood pressure, diastolic 2018-08-02 15:00:41 76 mm[Hg] [facility] blood pressure, systolic 2018-08-02 15:00:41 110 mm[Hg] [facility] pulse rate 2018-08-02 15:00:41 86 /min [facility] weight E&M 2018-08-02 15:00:41 188.50 [lb_av] [facility] weight in kilograms E&M 2018-08-02 15:00:41 85.68 kg [facility] height in centimeters E&M 2018-08-02 15:00:41 177.16 cm [facility] Heart Rate 2018-06-19 14:30:00 [facility] Diastolic (mm Hg) 2018-06-19 14:30:00 Mem [facility] Systolic (mm Hg) 2018-06-19 14:30:00 Herb [facility] Temperature Oral (F) 2018-06-19 14:30:00 97.8 F [facility] Weight 2018-06-19 14:30:00 [facility] Height 2018-06-19 14:30:00 [facility] Heart Rate 2018-05-25 20:00:00 [facility] Diastolic (mm Hg) 2018-05-25 20:00:00 Emma Palacio Systolic (mm Hg) 2018-05-25 20:00:00 Herb Palacio Temperature Oral (F) 2018-05-25 20:00:00 99.2 F Edward Palacio Weight 2018-05-25 20:00:00 Edward Palacio Height 2018-05-25 20:00:00 Edward Palacio weight E&M 2018-05-10 08:26:53 194 [lb_av] [facility] blood pressure, diastolic 2018-05-10 08:26:53 75 mm[Hg] [facility] blood pressure, systolic 2018-05-10 08:26:53 113 mm[Hg] [facility] pulse rate 2018-05-10 08:26:53 82 /min [facility] weight in kilograms E&M 2018-05-10 08:26:53 88.18 [facility] in [facility] E&M 2018-05-10 08:26:53 177.16 cm [facility] blood pressure, diastolic 2018-02-15 11:27:36 81 mm[Hg] [facility] blood pressure, systolic 2018-02-15 11:27:36 121 mm[Hg] [facility] pulse rate 2018-02-15 11:27:36 81 /min [facility] weight E&M 2018-02-15 11:27:36 189 [lb_av] [facility] weight in kilograms E&M 2018-02-15 11:27:36 85.91 kg [facility] height in centimeters E&M 2018-02-15 11:27:36 177.16 cm [facility] weight E&M 2018-01-18 12:42:41 193.25 [lb_av] [facility] weight in kilograms E&M 2018-01-18 12:42:41 87.84 kg [facility] blood pressure, diastolic 2018-01-18 12:42:41 81 mm[Hg] [facility] blood pressure, systolic 2018-01-18 12:42:41 122 mm[Hg] [facility] pulse rate 2018-01-18 12:42:41 95 /min [facility] height in centimeters E&M 2018-01-18 12:42:41 177.16 cm [facility] blood pressure, diastolic 2017-12-21 12:44:39 81 mm[Hg] [facility] pressure, systolic 2017-12-21 12:44:39 123 mm[Hg] [facility] pulse rate 2017-12-21 12:44:39 116 /min [facility] weight E&M 2017-12-21 12:44:39 193.13 [lb_av] [facility] weight in kilograms E&M 2017-12-21 12:44:39 87.79 kg [facility] height in centimeters E&M 2017-12-21 12:44:39 177.16 cm [facility] blood pressure, diastolic 2017-09-28 08:47:03 78 mm[Hg] [facility] blood pressure, systolic 2017-09-28 08:47:03 120 mm[Hg] [facility] pulse rate 2017-09-28 08:47:03 69 /min [facility] weight E&M 2017-09-28 08:47:03 200 [lb_av] [facility] in [facility] E&M 2017-09-28 08:47:03 90.91 kg [facility] height in centimeters E&M 2017-09-28 08:47:03 177.16 cm [facility] blood pressure, diastolic 2017-07-01 14:58:41 74 mm[Hg] [facility] blood pressure, systolic 2017-07-01 14:58:41 128 mm[Hg] [facility] weight E&M 2017-07-01 14:58:41 211 [lb_av] [facility] weight in kilograms E&M 2017-07-01 14:58:41 95.91 kg [facility] height in centimeters E&M 2017-07-01 14:58:41 177.16 cm [facility] Heart Rate 2017-06-20 14:30:00 Edward Palacio Diastolic (mm Hg) 2017-06-20 14:30:00 Emma Palacio Systolic (mm Hg) 2017-06-20 14:30:00 Herb [facility] Temperature Oral (F) 2017-06-20 14:30:00 97 F [facility] Weight 2017-06-20 14:30:00 [facility] Height 2017-06-20 14:30:00 [facility] Heart Rate 2017-06-03 20:45:00 [facility] Diastolic (mm Hg) 2017-06-03 20:45:00 Mem [facility] Systolic (mm Hg) 2017-06-03 20:45:00 Herb rial [facility] Temperature Oral (F) 2017-06-03 20:45:00 98 F [facility] Weight 2017-06-03 20:45:00 [facility] Height 2017-06-03 20:45:00 [facility] Heart Rate 2017-03-21 20:00:00 [facility] Diastolic (mm Hg) 2017-03-21 20:00:00 [facility] Systolic (mm Hg) 2017-03-21 20:00:00 Herb [facility] Temperature Oral (F) 2017-03-21 20:00:00 98.0 F [facility] Weight 2017-03-21 20:00:00 [facility] Height 2017-03-21 20:00:00 [facility] diastolic 2017-02-28 09:25:02 70 mm[Hg] [facility] blood pressure, systolic 2017-02-28 09:25:02 124 mm[Hg] [facility] pulse rate 2017-02-28 09:25:02 66 /min [facility] weight E&M 2017-02-28 09:25:02 209 [lb_av] [facility] weight in kilograms E&M 2017-02-28 09:25:02 95 kg [facility] height in centimeters E&M 2017-02-28 09:25:02 177.16 cm [facility] temperature site 2016-12-15 09:45:20 tympanic Lega [facility] temperature E&M 2016-12-15 09:45:20 98.5 [degF] Leg[facility] blood pressure, diastolic 2016-12-06 09:52:43 81 mm[Hg] [facility] blood pressure, systolic 2016-12-06 09:52:43 124 mm[Hg] [facility] pulse rate 2016-12-06 09:52:43 60 /min [facility] weight E&M 2016-12-06 09:52:43 215.40 [lb_av] [facility] weight in kilograms E&M 2016-12-06 09:52:43 97.91 kg [facility] height in centimeters E&M 2016-12-06 09:52:43 177.16 cm [facility] Heart Rate 2016-11-22 15:00:00 [facility] Diastolic (mm Hg) 2016-11-22 15:00:00 [facility] Systolic (mm Hg) 2016-11-22 15:00:00 Herb Palacio Temperature Oral (F) 2016-11-22 15:00:00 98.2 F [facility] Weight 2016-11-22 15:00:00 [facility] Height 2016-11-22 15:00:00 [facility], diastolic 2016-09-13 10:12:38 82 mm[Hg] [facility] blood pressure, systolic 2016-09-13 10:12:38 111 mm[Hg] [facility] pulse rate 2016-09-13 10:12:38 118 /min [facility] height in centimeters E&M 2016-09-13 10:12:38 177.16 cm [facility] weight E&M 2016-09-13 10:12:38 216.60 [lb_av] [facility] weight in kilograms E&M 2016-09-13 10:12:38 98.45 kg [facility] blood pressure, diastolic 2016-07-19 10:42:37 77 mm[Hg] [facility] blood pressure, systolic 2016-07-19 10:42:37 120 mm[Hg] [facility] pulse rate 2016-07-19 10:42:37 72 /min [facility] weight E&M 2016-07-19 10:42:37 215.13 [lb_av] [facility] weight in kilograms E&M 2016-07-19 10:42:37 97.79 kg [facility] height in centimeters E&M 2016-07-19 10:42:37 177.16 cm [facility] blood pressure, diastolic 2016-07-05 10:12:33 79 mm[Hg] [facility] blood pressure, systolic 2016-07-05 10:12:33 121 mm[Hg] [facility] pulse rate 2016-07-05 10:12:33 75 /min [facility] weight E&M 2016-07-05 10:12:33 210.50 [lb_av] [facility] weight in kilograms E&M 2016-07-05 10:12:33 95.68 kg [facility] height in centimeters E&M 2016-07-05 10:12:33 177.16 cm [facility] oxygen saturation, oximetry 2016-06-17 08:44:15 99 /min [facility] temperature E&M 2016-06-17 08:44:15 98.0 [degF] [facility] pulse rate 2016-06-17 08:44:15 84 /min [facility], diastolic 2016-06-17 08:44:15 79 mm[Hg] [facility] blood pressure, systolic 2016-06-17 08:44:15 118 mm[Hg] [facility] weight E&M 2016-06-17 08:44:15 213 [lb_av] [facility] weight in kilograms E&M 2016-06-17 08:44:15 96.82 kg [facility] temperature site 2016-06-17 08:44:15 tympanic [facility] height in centimeters E&M 2016-06-17 08:44:15 177.16 cm [facility] blood pressure, diastolic 2016-05-05 10:24:18 76 mm[Hg] [facility] blood pressure, systolic 2016-05-05 10:24:18 119 mm[Hg] [facility] 2016-05-05 10:24:18 80 [facility] 2016-05-05 10:24:18 215.25 [lb_av] [facility] weight in kilograms E&M 2016-05-05 10:24:18 97.84 kg [facility] height in centimeters E&M 2016-05-05 10:24:18 177.16 cm [facility] Heart Rate 2016-03-15 14:15:00 [facility] Diastolic (mm Hg) 2016-03-15 14:15:00 Mem orial Hakeem Systolic (mm Hg) 2016-03-15 14:15:00 Herb katherine P[facility] Temperature Oral (F) 2016-03-15 14:15:00 98.6 F [facility] Weight 2016-03-15 14:15:00 [facility] Height 2016-03-15 14:15:00 [facility] blood pressure, diastolic 2016-03-10 10:16:34 80 mm[Hg] [facility] blood pressure, systolic 2016-03-10 10:16:34 121 mm[Hg] [facility] pulse rate 2016-03-10 10:16:34 90 /[facility] weight E&M 2016-03-10 10:16:34 210.50 [lb_av] [facility] weight in kilograms E&M 2016-03-10 10:16:34 95.68 kg [facility] height in centimeters E&M 2016-03-10 10:16:34 177.16 cm [facility] blood pressure, diastolic 2016-02-12 08:02:24 71 mm[Hg] [facility] blood pressure, systolic 2016-02-12 08:02:24 124 mm[Hg] [facility] pulse rate 2016-02-12 08:02:24 78 /min [facility] weight E&M 2016-02-12 08:02:24 213.13 [lb_av] [facility] weight in kilograms E&M 2016-02-12 08:02:24 96.88 kg [facility] height E&M 2016-02-12 08:02:24 69.75 [in_i] [facility] Diastolic (mm Hg) 2013-06-26 14:45:00 Mem orial Hakeem Systolic (mm Hg) 2013-06-26 14:45:00 Herb katherine [facility] Temperature Oral (F) 2013-06-26 14:45:00 97.4 F [facility] Weight 2013-06-26 14:45:00 [facility] Height 2013-06-26 14:45:00 [facility] Procedures Procedure Date / Time Performed Performing Clinician [facility] e Diagnostic evaluation with [facility] - [id number] 2016-02-12 09:09:59 Chaka Abraham [facility] Plan of Care Planned Activity Planned Date Details Comments Source Instructions Abdominal Pain - Adult [facility] Jessica macdonaldFloyd [facility] Encounters Start Date/Time End Date/Time Encounter Type Admission Type [facility] Care Department Encounter ID Source 2020-04-03 00:00:00 2020-04-03 00:00:00 Office Visit Manolo Mcclain [facility] Encounter/[id number] [facility] 2020-04-03 00:00:00 2020-04-03 00:00:00 Office Visit Yoselyn Shakila [facility] Encounter/[id number] [facility] 2020-03-31 00:00:00 2020-03-31 00:00:00 [facility][id number] [facility] 2020-03-19 00:00:00 2020-03-19 00:00:00 Office Visit Manolo Mcclain [facility] Encounter/[id number] [facility] 2020-02-18 21:50:00 2020-02-19 00:33:00 Departed Emergency Room [address] [facility] [id number] [facility] 2019-06-05 00:00:00 2019-06-05 00:00:00 Office Visit Manolo Mcclain [facility] Encounter/[id number] [facility] 2019-06-05 00:00:00 2019-06-05 00:00:00 [facility]/[id number] [facility] 2019-04-18 00:00:00 2019-04-18 00:00:00 Office Visit Manolo Mcclain [facility] Encounter/[id number] [facility] 2019-04-17 00:00:00 2019-04-17 00:00:00 Office Visit Chaka Abraham Adam [facility] Encounter/[id number] [facility] 2019-04-09 00:00:00 2019-04-09 00:00:00 Office Visit Chaka Abraham Adam [facility] Encounter/[id number] [facility] 2019-02-27 14:45:00 2019-02-27 14:45:00 Outpatient [facility] [id number] [employer] 2018-11-22 00:00:00 2018-11-22 00:00:00 Office Visit Manolo Mcclain [facility] Encounter/[id number] [facility] 2018-11-22 00:00:00 2018-11-22 00:00:00 Office Visit Chaka Abraham Jessenia [facility] Encounter/[id number] [facility] 2018-08-02 00:00:00 2018-08-02 00:00:00 Office Visit Chaka Abraham Jessenia [facility] Encounter/[id number] [facility] 2018-06-19 08:30:00 2018-06-19 08:30:00 Outpatient [facility] [id number] [employer] 2018-06-19 00:00:00 2018-06-19 00:00:00 Office Visit Darron Enriquez [facility] Encounter/[id number] [facility] 2018-05-25 14:00:00 2018-05-25 14:00:00 Outpatient [facility] [id number] [employer] 2018-05-10 00:00:00 2018-05-10 00:00:00 Office Visit Chaka Abraham Jessenia [facility] Encounter/[id number] [facility] 2018-02-15 00:00:00 2018-02-15 00:00:00 Office Visit Chaka Abraham Jessenia [facility] Encounter/[id number] [facility] 2018-01-18 00:00:00 2018-01-18 00:00:00 Office Visit Chaka Abraham Jessenia [facility] Encounter/[id number] [facility] 2017-12-21 00:00:00 2017-12-21 00:00:00 Office Visit Manolo Mcclain [facility] Encounter/[id number] [facility] 2017-12-21 00:00:00 2017-12-21 00:00:00 Office Visit Chaka Abraham Jessenia [facility] Encounter/[id number] [facility] 2017-09-28 00:00:00 2017-09-28 00:00:00 Office Visit Chaka Abraham Jessenia [facility] Encounter/[id number] [facility] 2017-07-01 00:00:00 2017-07-01 00:00:00 Office Visit Chaka Abraham Jessenia [facility] Encounter/[id number] [facility] 2017-06-20 08:30:00 2017-06-20 08:30:00 Outpatient [facility] [id number] [employer] 2017-06-20 00:00:00 2017-06-20 00:00:00 Office Visit JohnyManolo lamb [facility] Encounter/[id number] [facility] 2017 00:00:00 2017 00:00:00 Office Visit Manolo Mcclain [facility] Encounter/[id number] [facility] 2017-06-10 00:00:00 2017-06-10 00:00:00 Office Visit JohnyManolo lamb [facility] LC Encounter/[id number] [facility] 2017-06-03 14:45:00 2017-06-03 14:45:00 Outpatient [facility] [id number] [employer] 2017-03-29 00:00:00 2017-03-29 00:00:00 Office Visit Chaka Abraham Jessenia Perez, Nancy [facility] LC Encounter/[id number] [facility] 2017-03-21 14:00:00 2017-03-21 14:00:00 Outpatient [facility] [id number] [employer] 2017-02-28 00:00:00 2017-02-28 00:00:00 Office Visit Manolo Mcclain [facility] Encounter/[id number] [facility] 2017-02-28 00:00:00 2017-02-28 00:00:00 Office Visit Chaka Abraham Jessenia [facility] Encounter/[id number] [facility] 2016-12-15 00:00:00 2016-12-15 00:00:00 Office Visit Latasha Bell [facility] LC Encounter/[id number] [facility] 2016-12-15 00:00:00 2016-12-15 00:00:00 Office Visit Radha Powell Guadalupe [facility] Encounter/[id number] Critical access hospital 2016-12-06 00:00:00 2016-12-06 00:00:00 Office Visit Chaka Abraham Velia [facility] Encounter/[id number] [facility] 2016-11-25 14:37:00 2016-11-25 14:37:00 [facility] [id number] [facility]22 10:00:00 2016-11-22 10:00:00 [facility] [id number] [facility] 2016-11-17 11:41:00 2016-11-17 11:41:00 [facility] [id number] [facility] 2016-10-11 00:00:00 2016-10-11 00:00:00 Office Visit Crystal Hylton Maria [facility] Encounter/[id number] [facility] 2016-09-13 00:00:00 2016-09-13 00:00:00 Office Visit Chaka Abraham Velia [facility] Encounter/[id number] [facility] 2016-09-02 00:00:00 2016-09-02 00:00:00 Office Visit Manolo Mcclain [facility] Encounter/[id number] [facility] 2016-09-01 00:00:00 2016-09-01 00:00:00 Office Visit Chaka Abraham Jessenia [facility] LC Encounter/[id number] [facility] 2016-08-20 00:00:00 2016-08-20 00:00:00 Office Visit Shanks Ene april LOUIE [facility] Encounter/[id number] [facility] 2016-08-16 00:00:00 2016-08-16 00:00:00 Office Visit Latasha Bell [facility] Encounter/[id number] [facility] 2016-08-16 00:00:00 2016-08-16 00:00:00 Office Visit Latasha Linder Vanessa Padilla, Dunia [facility] Encounter/[id number] [facility] 2016-08-12 00:00:00 2016-08-12 00:00:00 Office Visit Manolo Mcclain [facility] Encounter/[id number] [facility] 2016-08-05 00:00:00 2016-08-05 00:00:00 Office Visit Manolo Mcclain [facility] LC Encounter/[id number] [facility] 2016-08-04 00:00:00 2016-08-04 00:00:00 Office Visit Chaka Abraham Jessenia Amaya, Rosa LC LC Encounter/[id number] [facility] 2016-08-02 00:00:00 2016-08-02 00:00:00 Office Visit Manolo Mcclain [facility] Encounter/[id number] [facility] 2016-07-28 00:00:00 2016-07-28 00:00:00 Office Visit Latasha Linder Dunia [facility] Encounter/[id number] [facility] 2016-07-19 00:00:00 2016-07-19 00:00:00 Office Visit Chaka Abraham Jessenia [facility] Encounter/[id number] [facility] 2016-07-05 00:00:00 2016-07-05 00:00:00 Office Visit Chaka Abraham Jessenia [facility] Encounter/[id number] [facility] 2016-06-30 00:00:00 2016-06-30 00:00:00 Office Visit Chaka Abraham Jessenia [facility] Encounter/[id number] [facility] 2016 00:00:00 2016 00:00:00 Office Visit Manolo Dodd [facility] Encounter/[id number] [facility] 2016 00:00:00 2016 00:00:00 Office Visit Ene Shanks [facility] Encounter/[id number] [facility] 2016-06-17 00:00:00 2016-06-17 00:00:00 Office Visit Ene Shanks [facility] Encounter/[id number] [facility] 2016-06-17 00:00:00 2016-06-17 00:00:00 Office Visit Natasha Light Daisy [facility] Encounter/[id number] [facility] 2016-06-17 00:00:00 2016-06-17 00:00:00 Office Visit Ene Shanks [facility] Encounter/[id number] [facility] 2016-06-17 00:00:00 2016-06-17 00:00:00 Office Visit Natasha Light Julissa Velez, Guadalupe [facility] Encounter/[id number] Critical access hospital 2016-05-05 00:00:00 2016-05-05 00:00:00 Office Visit Chaka Abraham Jessenia [facility] Encounter/[id number] [facility] 2016-03-16 00:00:00 2016-03-16 00:00:00 Office Visit Rohan Stevens [facility] Encounter/[id number] [facility] 2016-03-15 09:15:00 2016-03-15 09:15:00 Outpatient Whit Berry DO, PA Murtaza Musajji, [place], [place] [id number] [employer] 2016-03-10 00:00:00 2016-03-10 00:00:00 Office Visit Farzana brown Chakamirna KaplanShay [facility] Encounter/[id number] [facility] 2016-02-18 00:00:00 2016-02-18 00:00:00 Office Visit Rohan Stevens [facility] Encounter/[id number] [facility] 2016-02-12 00:00:00 2016-02-12 00:00:00 Office Visit Manolo Mcclain [facility] Encounter/[id number] [facility] 2016-02-12 00:00:00 2016-02-12 00:00:00 Office Visit Chaka Abraham Kristin Villegas, Erica [facility] Encounter/[id number] [facility] 2016-02-12 00:00:00 2016-02-12 00:00:00 Office Visit Farzana Chaka brown Shay [facility] Encounter/[id number] [facility] 2016-02-11 00:00:00 2016-02-11 00:00:00 Office Visit Raulito akinkrzysztof TownsendShay maria [facility] Encounter/[id number] [facility] 2015-08-28 09:06:00 2015-08-28 09:06:00 Outpatient Whit Berry DO, PA [place]ta[place] Musaj[place], [place], [place] [id number] [employer] 2013-07-02 15:29:00 2013-07-02 15:29:00 Outpatient Whit Berry DO, PA Murtaza Musajji, DO [place] [id number] [employer] 2013-06-27 16:12:00 2013-06-27 16:12:00 Outpatient Whit Berry DO, PA [place]ta[place] Musajji, DO, [place] [id number] [employer] Results Test Description Test Time Test Comments Results Result Comments Source CT ABD/PEL WITH CONTRAST-HOPD 2020-02-18 23:06:00 [facility] [address] [address] Patient Name: THERESA HARRINGTON MR #: [id number] : 1995 Age/Sex: 24/M Req #: [id number] Adm Physician: Ordered by: AMBER SPARKS MD Report #: [id number] Location: FS Room/Bed: Procedure: [id number] HOPD/CT ABD/PEL WITH CONTRAST-HOPD Exam Date: 02/18/20 Exam Time: 2241 REPORT STATUS: Signed EXAM: CT Abdomen and Pelvis WITH contrast INDICATION: Left-sided abdominal pain, appendectomy, look for small bowel obstruction COMPARISON: None. TECHNIQUE: Abdomen and pelvis were scanned utilizing a multidetector helical scanner from the lung base to the pubic symphysis after administration of IV contrast. Coronal and sagittal reformations were obtained. Routine protocol was performed. Scan was performed when during portal venous phase. IV CONTRAST: 100 mL of Isovue 370 ORAL CONTRAST: None COMPLICATIONS: None RADIATION DOSE: Total DLP: 869 mGy*cm Estimated effective dose: (DLP x 0.015 x size factor) mSv CTDIvol has been reviewed. It is below the limits set by the Radiation Protocol Committee (RPC). Dose modulation, iterative reconstruction, and/or weight based adjustment of the mA/kV was utilized to reduce the radiation dose to as low as reasonably achievable. FINDINGS: LINES and TUBES: None. LOWER THORAX: Unremarkable HEPATOBILIARY: No focal hepatic lesions. No biliary ductal dilation. GALLBLADDER: Small hypodensities layering within the gallbladder lumen. Distended elongated gallbladder, greater than 10 cm in long axis. No wall thickening. SPLEEN: No splenomegaly. PANCREAS: No focal masses or ductal dilatation. ADRENALS: No adrenal nodules KIDNEYS/URETERS: Kidneys enhance symmetrically. No hydronephrosis. No cystic or solid mass lesions. No stones. GI TRACT: No abnormal distention, wall thickening, or evidence of bowel obstruction. There are post surgical changes of appendectomy. PELVIC ORGANS/BLADDER: Unremarkable. LYMPH NODES: No lymphadenopathy. VESSELS: Unremarkable. PERITONEUM / RETROPERITONEUM: No free air or fluid. BONES: Unremarkable. SOFT TISSUES: Unremarkable. IMPRESSION: No evidence of small bowel obstruction. Suspect cholelithiasis. Mild gallbladder distention. If there is right upper quadrant pain/tenderness, consider right upper quadrant ultrasound. Signed by: Joon Rosales DO on 02/18/2020 11:11 PM Dictated By: JOON ROSALES DO 10 Transcribed By: HAIR on 02/18/202310 COPY TO: AMBER SPARKS MD LDL cholesterol, serum 2019-06-05 15:09:00 Test Item LDL cholesterol, serum (test code = 2089-1) 66 mg/dL 0-99 [facility], [id number] 15:09:00* Test Item Value Reference Range Interpretation Comments HDL cholesterol, serum (test code = 2085-9) 54 mg/dL >39 [facility], serum, [id number] 15:09:00* Test Item Value Reference Range Interpretation Comments triglyceride, serum, fasting (test code = 2571-8) 69 mg/dL 0-14 9 [facility] Centercholesterol, [id number] 15:09:00* Test Item Value Reference Range Interpretation Comments cholesterol, serum (test code = 2093-3) 134 mg/dL 100-199 [facility] Centervalproic acid, [id number] 15:09:00* Test Item Value Reference Range Interpretation Comments valproic acid, serum (test code = 4086-5) 29 ug/mL 50-100 L [facility] low density [id number] 15:09:00* Test Item Value Reference Range Interpretation Comments very low density lipoproteins (test code = 2091-7) 14 mg/dL 5-4 0 [facility] Cent[facility]anine aminotransferase (SGPT), [id number] 15:09:00 * Test Item Value Reference Range Interpretation Comments alanine aminotransferase (SGPT), serum (test code = 1742-6) 22 1/L 0-44 [facility] Centeraspartate aminotransferase (SGOT), [id number] 15:09:00* Test Item Value Reference Range Interpretation Comments aspartate aminotransferase (SGOT), serum (test code = 1920-8) 15 1/ L 0-40 [facility] Centeralkaline phosphatase, [id number] 15:09:00* Test Item Value Reference Range Interpretation Comments alkaline phosphatase, serum (test code = 1783-0) 61 1/L 39-11 7 [facility] Healthbilirubin, serum, [id number] 15:09:00* Test Item Value Reference Range Interpretation Comments bilirubin, serum, total (test code = 1975-2) 1.4 mg/dL 0.0-1.2 H [facility] Healthalbumin/globulin ratio, [id number] 15:09:00* Test Item Value Reference Range Interpretation Comments albumin/globulin ratio, serum (test code = 1759-0) 2.0 1.2 -2.2 [facility] Healthglobulin, [id number] 15:09:00* Test Item Value Reference Range Interpretation Comments globulin, serum (test code = 2336-6) 2.5 1.5-4.5 [facility] Healthalbumin, [id number] 15:09:00* Test Item Value Reference Range Interpretation Comments albumin, serum (test code = 1751-7) 4.9 g/dL 3.5-5.5 [facility] Healthprotein, total, [id number] 15:09:00* Test Item Value Reference Range Interpretation Comments protein, total, serum (test code = 2885-2) 7.4 g/dL 6.0-8.5 [facility] Healthcalcium, [id number] 15:09:00* Test Item Value Reference Range Interpretation Comments calcium, serum (test code = 2000-8) 9.9 mg/dL 8.7-10.2 [facility] Centercarbon dioxide, venous [id number] 15:09:00* Test Item Value Reference Range Interpretation Comments carbon dioxide, venous blood (test code = 2027-1) 25 mmol/L 20-2 9 [facility] Healthchloride, [id number] 15:09:00* Test Item Value Reference Range Interpretation Comments chloride, serum (test code = 2075-0) 99 mmol/L 96-106 [facility] Healthpotassium, [id number] 15:09:00* Test Item Value Reference Range Interpretation Comments potassium, serum (test code = 2823-3) 4.3 mmol/L 3.5-5.2 [facility] Healthsodium, [id number] 15:09:00* Test Item Value Reference Range Interpretation Comments sodium, serum (test code = 2951-2) 141 mmol/L 134-144 [facility] Centerurea nitrogen/creatinine ratio, [id number] 15:09:00 * Test Item Value Reference Range Interpretation Comments urea nitrogen/creatinine ratio, serum (test code = 3097-3) 11 9-20 [facility] HealtheGFR if [id number] 15:09:00* Test Item Value Reference Range Interpretation Comments eGFR if (test code = 18460-1) 124 mL/min/((173/100 ).m2) >59 [facility] CenterEstimated Glomerular Filtration Rate (calc)2019-06-05 15:09:00* Test Item Value Reference Range Interpretation Comments Estimated Glomerular Filtration Rate (calc) (test code = 31528-8) 107 mL/min/((173/100).m2) >59 [facility] Centercreatinine, [id number] 15:09:00* Test Item Value Reference Range Interpretation Comments creatinine, serum (test code = 2160-0) 0.98 mg/dL 0.76-1.27 [facility] Centerurea nitrogen, [id number] 15:09:00* Test Item Value Reference Range Interpretation Comments urea nitrogen, blood (test code = 3094-0) 11 mg/dL 6-20 [facility] Centerblood glucose, [id number] 15:09:00* Test Item Value Reference Range Interpretation Comments blood glucose, random (test code = 2339-0) 91 mg/dL 65-99 [facility] Centerimmature granulocytes, percentage of total cells, blood 2019-06-05 15:09:00* Test Item Value Reference Range Interpretation Comments immature granulocytes, percentage of total cells, bloo d (test code = 31293-8) 0 % [facility] Centerbasophil count, [id number] 15:09:00* Test Item Value Reference Range Interpretation Comments basophil count, absolute (test code = 91611-8) 0.0 x10E3/uL 0.0-0.2 [facility] HealthEosinophil Absolute [id number] 15:09:00* Test Item Value Reference Range Interpretation Comments Eosinophil Absolute Count (test code = 19506-8) 0.1 X10E3/UL 0.0-0. 4 [facility] Healthmonocyte count, blood, [id number] 15:09:00* Test Item Value Reference Range Interpretation Comments monocyte count, blood, automated (test code = 742-7) 0.3 X10E3/UL 0 .1-0.9 [facility] Centerlymphocyte count, blood, rrjaprhqi0463-75-00 15:09:00* Test Item Value Reference Range Interpretation Comments lymphocyte count, blood, automated (test code = 731-0) 1.3 X10E3/UL 0.7-3.1 [facility] HealthAbsolute [id number] 15:09:00* Test Item Value Reference Range Interpretation Comments Absolute Neutrophils (test code = 60044-7) 3.0 X10E3/UL 1.4-7.0 [facility] Healthbasophils as percent of blood [id number] 15:09:00* Test Item Value Reference Range Interpretation Comments basophils as percent of blood leukocytes (test code = 707-0) 1 % [facility] Healtheosinophils as percent of blood afhqolaxvl7459-30-81 15:09:00* Test Item Value Reference Range Interpretation Comments eosinophils as percent of blood leukocytes (test code = 713-8) 2 % [facility] Healthmonocytes as percent of blood isxpflnxlh6516-52-09 15:09:00* Test Item Value Reference Range Interpretation Comments monocytes as percent of blood leukocytes (test code = 5905-5) 6 % [facility] Centerlymphocytes as percent of blood naftjeussg9665-99-23 15:09:00* Test Item Value Reference Range Interpretation Comments lymphocytes as percent of blood leukocytes (test code = 736-9) 27 % [facility] Centerneutrophils as percent of blood [id number] 15:09:00* Test Item Value Reference Range Interpretation Comments neutrophils as percent of blood leukocytes (test code = 770-8) 64 % [facility] Centerplatelet [id number] 15:09:00* Test Item Value Reference Range Interpretation Comments platelet count (test code = 777-3) 210 X10E3/UL 150-450 [facility] Centerred blood cell distribution [id number] 15:09:00* Test Item Value Reference Range Interpretation Comments red blood cell distribution width (test code = 788-0) 13.4 % 11.6-15.4 [facility] [place] corpuscular hemoglobin concentration, [id number] 15:09:00* Test Item Value Reference Range Interpretation Comments mean corpuscular hemoglobin concentration, RBC (test code = 786-4) 34.1 G/DL 31.5-35.7 [facility] [place] corpuscular hemoglobin, [id number] 15:09:00* Test Item Value Reference Range Interpretation Comments mean corpuscular hemoglobin, RBC (test code = 785-6) 30.3 pg 2 6.6-33.0 [facility] [place] corpuscular volume, [id number] 15:09:00* Test Item Value Reference Range Interpretation Comments mean corpuscular volume, RBC (test code = 787-2) 89 fL 79-97 [facility] Centerhematocrit, [id number] 15:09:00* Test Item Value Reference Range Interpretation Comments hematocrit, blood (test code = 4544-3) 46.9 % 37.5-51.0 [facility] Centerhemoglobin, [id number] 15:09:00* Test Item Value Reference Range Interpretation Comments hemoglobin, blood (test code = 718-7) 16.0 g/dL 13.0-17.7 [facility] Centererythrocyte (RBC) [id number] 15:09:00* Test Item Value Reference Range Interpretation Comments erythrocyte (RBC) count (test code = 789-8) 5.28 X10E6/UL 4.14-5.80 [facility] Centerleukocyte count, [id number] 15:09:00* Test Item Value Reference Range Interpretation Comments leukocyte count, blood (test code = 6690-2) 4.8 X10E3/UL 3.4-10.8 [facility] CenterLDL cholesterol, [id number] 16:01:00* Test Item Value Reference Range Interpretation Comments LDL cholesterol, serum (test code = 2089-1) 47 mg/dL 0-99 [facility] CenterHDL cholesterol, heedq4770-15-60 16:01:00* Test Item Value Reference Range Interpretation Comments HDL cholesterol, serum (test code = 2085-9) 49 mg/dL >39 [facility] Centertriglyceride, serum, [id number] 16:01:00* Test Item Value Reference Range Interpretation Comments triglyceride, serum, fasting (test code = 2571-8) 89 mg/dL 0-14 9 [facility] Centercholesterol, [id number] 16:01:00* Test Item Value Reference Range Interpretation Comments cholesterol, serum (test code = 2093-3) 114 mg/dL 100-199 [facility] Centervalproic acid, [id number] 16:01:00* Test Item Value Reference Range Interpretation Comments valproic acid, serum (test code = 4086-5) 16 ug/mL 50-100 L [facility] low density pjcuafjameub1957-45-19 16:01:00* Test Item Value Reference Range Interpretation Comments very low density lipoproteins (test code = 2091-7) 18 mg/dL 5-4 0 [facility] Centeralanine aminotransferase (SGPT), mpxkw7749-58-09 16:01:00 * Test Item Value Reference Range Interpretation Comments alanine aminotransferase (SGPT), serum (test code = 1742-6) 20 1/L 0-44 [facility] Centeraspartate aminotransferase (SGOT), [id number] 16:01:00* Test Item Value Reference Range Interpretation Comments aspartate aminotransferase (SGOT), serum (test code = 1920-8) 12 1/ L 0-40 [facility] Centeralkaline phosphatase, [id number] 16:01:00* Test Item Value Reference Range Interpretation Comments alkaline phosphatase, serum (test code = 1783-0) 57 1/L 39-11 7 [facility] Healthbilirubin, serum, [id number] 16:01:00* Test Item Value Reference Range Interpretation Comments bilirubin, serum, total (test code = 1975-2) 1.2 mg/dL 0.0-1.2 [facility] Healthalbumin/globulin ratio, [id number] 16:01:00* Test Item Value Reference Range Interpretation Comments albumin/globulin ratio, serum (test code = 1759-0) 2.3 1.2 -2.2 H [facility] Healthglobulin, [id number] 16:01:00* Test Item Value Reference Range Interpretation Comments globulin, serum (test code = 2336-6) 2.3 1.5-4.5 [facility] Healthalbumin, [id number] 16:01:00* Test Item Value Reference Range Interpretation Comments albumin, serum (test code = 1751-7) 5.4 g/dL 3.5-5.5 [facility] Centerprotein, total, [id number] 16:01:00* Test Item Value Reference Range Interpretation Comments protein, total, serum (test code = 2885-2) 7.7 g/dL 6.0-8.5 [facility] Healthcalcium, [id number] 16:01:00* Test Item Value Reference Range Interpretation Comments calcium, serum (test code = 2000-8) 9.8 mg/dL 8.7-10.2 [facility] Centercarbon dioxide, venous wkeem2632-85-50 16:01:00* Test Item Value Reference Range Interpretation Comments carbon dioxide, venous blood (test code = 7-1) 24 mmol/L 20-2 9 [facility] Healthchloride, [id number] 16:01:00* Test Item Value Reference Range Interpretation Comments chloride, serum (test code = 2075-0) 104 mmol/L 96-106 [facility] Centerpotassium, [id number] 16:01:00* Test Item Value Reference Range Interpretation Comments potassium, serum (test code = 2823-3) 4.5 mmol/L 3.5-5.2 [facility] Centersodium, riewo1344-06-94 16:01:00* Test Item Value Reference Range Interpretation Comments sodium, serum (test code = 2951-2) 143 mmol/L 134-144 [facility] Centerurea nitrogen/creatinine ratio, [id number] 16:01:00 * Test Item Value Reference Range Interpretation Comments urea nitrogen/creatinine ratio, serum (test code = 3097-3) 10 9-20 [facility] HealtheGFR if Abvcymib8059-01-89 16:01:00* Test Item Value Reference Range Interpretation Comments eGFR if (test code = 51729-8) 98 mL/min/((173/100) .m2) >59 [facility] CenterEstimated Glomerular Filtration Rate (calc)2018-11-22 16:01:00* Test Item Value Reference Range Interpretation Comments Estimated Glomerular Filtration Rate (calc) (test code = 32931-7) 85 mL/min/((173/100).m2) >59 [facility] Centercreatinine, [id number] 16:01:00* Test Item Value Reference Range Interpretation Comments creatinine, serum (test code = 2160-0) 1.19 mg/dL 0.76-1.27 [facility] Centerurea nitrogen, rxogi1262-04-09 16:01:00* Test Item Value Reference Range Interpretation Comments urea nitrogen, blood (test code = 3094-0) 12 mg/dL 6-20 [facility] Centerblood glucose, [id number] 16:01:00* Test Item Value Reference Range Interpretation Comments blood glucose, random (test code = 2339-0) 98 mg/dL 65-99 [facility] Centerimmature granulocytes, percentage of total cells, blood 2018-11-22 16:01:00* Test Item Value Reference Range Interpretation Comments immature granulocytes, percentage of total cells, bloo d (test code = 44729-5) 0 % [facility] Centerbasophil count, kozlrptx6461-02-21 16:01:00* Test Item Value Reference Range Interpretation Comments basophil count, absolute (test code = 29446-5) 0.0 x10E3/uL 0.0-0.2 [facility] CenterEosinophil Absolute Bxwif8225-58-47 16:01:00* Test Item Value Reference Range Interpretation Comments Eosinophil Absolute Count (test code = 53076-9) 0.0 X10E3/UL 0.0-0. 4 [facility] Centermonocyte count, blood, sczpbnfuq0526-67-67 16:01:00* Test Item Value Reference Range Interpretation Comments monocyte count, blood, automated (test code = 742-7) 0.3 X10E3/UL 0 .1-0.9 [facility] Centerlymphocyte count, blood, rdkvecroo8236-98-20 16:01:00* Test Item Value Reference Range Interpretation Comments lymphocyte count, blood, automated (test code = 731-0) 1.2 X10E3/UL 0.7-3.1 [facility] CenterAbsolute Geufmtoxwnz7971-13-99 16:01:00* Test Item Value Reference Range Interpretation Comments Absolute Neutrophils (test code = 10071-9) 2.9 X10E3/UL 1.4-7.0 [facility] Centerbasophils as percent of blood cpbigrfjzb9919-61-16 16:01:00* Test Item Value Reference Range Interpretation Comments basophils as percent of blood leukocytes (test code = 707-0) 1 % [facility] Centereosinophils as percent of blood alirpnuqys3404-45-93 16:01:00* Test Item Value Reference Range Interpretation Comments eosinophils as percent of blood leukocytes (test code = 713-8) 1 % [facility] Healthmonocytes as percent of blood qwsnontcvt5449-69-56 16:01:00* Test Item Value Reference Range Interpretation Comments monocytes as percent of blood leukocytes (test code = 5905-5) 6 % [facility] Centerlymphocytes as percent of blood vytyjkdocs0104-61-18 16:01:00* Test Item Value Reference Range Interpretation Comments lymphocytes as percent of blood leukocytes (test code = 736-9) 27 % [facility] Centerneutrophils as percent of blood musrcehvxm8889-33-28 16:01:00* Test Item Value Reference Range Interpretation Comments neutrophils as percent of blood leukocytes (test code = 770-8) 65 % [facility] Centerplatelet [id number] 16:01:00* Test Item Value Reference Range Interpretation Comments platelet count (test code = 777-3) 173 X10E3/UL 150-450 [facility] Centerred blood cell distribution uzliw6097-35-25 16:01:00* Test Item Value Reference Range Interpretation Comments red blood cell distribution width (test code = 788-0) 13.1 % 12.3-15.4 [facility] [place] corpuscular hemoglobin concentration, [id number] 16:01:00* Test Item Value Reference Range Interpretation Comments mean corpuscular hemoglobin concentration, RBC (test code = 786-4) 32.9 G/DL 31.5-35.7 [facility] [place] corpuscular hemoglobin, [id number] 16:01:00* Test Item Value Reference Range Interpretation Comments mean corpuscular hemoglobin, RBC (test code = 785-6) 29.5 pg 2 6.6-33.0 [facility] [place] corpuscular volume, [id number] 16:01:00* Test Item Value Reference Range Interpretation Comments mean corpuscular volume, RBC (test code = 787-2) 90 fL 79-97 [facility] Centerhematocrit, [id number] 16:01:00* Test Item Value Reference Range Interpretation Comments hematocrit, blood (test code = 4544-3) 48.7 % 37.5-51.0 [facility] Centerhemoglobin, wbodk0031-75-97 16:01:00* Test Item Value Reference Range Interpretation Comments hemoglobin, blood (test code = 718-7) 16.0 g/dL 13.0-17.7 [facility] Centererythrocyte (RBC) hyjgi3072-09-40 16:01:00* Test Item Value Reference Range Interpretation Comments erythrocyte (RBC) count (test code = 789-8) 5.42 X10E6/UL 4.14-5.80 [facility] Centerleukocyte count, [id number] 16:01:00* Test Item Value Reference Range Interpretation Comments leukocyte count, blood (test code = 6690-2) 4.5 X10E3/UL 3.4-10.8 [facility] Centerhemoglobin A1C, blood, as % of total ibrhvmxizo5457-45-08 09:38:00* Test Item Value Reference Range Interpretation Comments hemoglobin A1C, blood, as % of total hemoglobin (test code = 4548-4) 5.5 % 4.8-5.6 [facility] CenterLDL cholesterol, kulib0123-58-13 09:38:00* Test Item Value Reference Range Interpretation Comments LDL cholesterol, serum (test code = 2089-1) 50 mg/dL 0-99 [facility] CenterHDL cholesterol, bkomz4682-93-42 09:38:00* Test Item Value Reference Range Interpretation Comments HDL cholesterol, serum (test code = 2085-9) 37 mg/dL >39 L [facility] Centertriglyceride, serum, jctsptt6449-25-41 09:38:00* Test Item Value Reference Range Interpretation Comments triglyceride, serum, fasting (test code = 2571-8) 102 mg/dL 0-14 9 [facility] Centercholesterol, frpej1902-24-02 09:38:00* Test Item Value Reference Range Interpretation Comments cholesterol, serum (test code = 2093-3) 107 mg/dL 100-199 [facility] CenterW urine on krofeealxz1987-13-19 09:38:00* Test Item Value Reference Range Interpretation Comments WBC urine on microscopy (test code = 1016) 0-5 /hpf 0-5 [facility] Centerprotein, urine, semiquantitative (dipstick)2016-06-17 09:38:00* Test Item Value Reference Range Interpretation Comments protein, urine, semiquantitative (dipstick) (test code = 175 3-3) 1+ Negative/Trace A [facility] Centervitamin D 25-hydroxy, zsmee1085-42-52 09:38:00* Test Item Value Reference Range Interpretation Comments vitamin D 25-hydroxy, serum (test code = 82337-3) 40.8 ng/mL 30.0 -100.0 [facility] Centerver low density przrldkhqnem4740-91-24 09:38:00* Test Item Value Reference Range Interpretation Comments very low density lipoproteins (test code = 2091-7) 20 mg/dL 5-4 0 [facility] Centerbacteria, urine jvpaaiyrrz0481-93-54 09:38:00* Test Item Value Reference Range Interpretation Comments bacteria, urine microscopy (test code = 5769-5) None seen None s een/Few [facility] Centermucus on eadyyggypq7095-78-05 09:38:00* Test Item Value Reference Range Interpretation Comments mucus on urinalysis (test code = 8247-9) Present [facility] Centerepithelial cells, cfggo9284-38-96 09:38:00* Test Item Value Reference Range Interpretation Comments epithelial cells, urine (test code = 5787-7) 0-10 0-10 [facility] CenterRBC, Ezmad8444-17-93 09:38:00* Test Item Value Reference Range Interpretation Comments RBC, Urine (test code = 06729-8) 0-2 /hpf 0-2 [facility] Centerurinalysis, microscopic sixcidhmohy1519-70-55 09:38:00* Test Item Value Reference Range Interpretation Comments urinalysis, microscopic examination (test code = 55832-9) See below : [facility] Centernitrate, vfnnu7585-94-69 09:38:00* Test Item Value Reference Range Interpretation Comments nitrate, urine (test code = 68376-9) Negative Negative [facility] Centerurobilinogen, urine, semiquantitative (dipstick) 2016-06-17 09:38:00* Test Item Value Reference Range Interpretation Comments urobilinogen, urine, semiquantitative (dipstick) (test code = 5818-0) 1.0 0.2-1.0 [facility] Centerbilirubin, relzf8806-00-01 09:38:00* Test Item Value Reference Range Interpretation Comments bilirubin, urine (test code = 5770-3) Negative Negative [facility] Centerketones, urine, by test lchlm6975-97-40 09:38:00* Test Item Value Reference Range Interpretation Comments ketones, urine, by test strip (test code = 5797-6) Negative Neg ative [facility] Centerglucose, urine, ctnzqzcnpojmxjbl8087-59-11 09:38:00* Test Item Value Reference Range Interpretation Comments glucose, urine, semiquantitative (test code = 5792-7) Negative Negative [facility] Centerleukocyte esterase, urine, by srqzstib4349-39-70 09:38:00 * Test Item Value Reference Range Interpretation Comments leukocyte esterase, urine, by dipstick (test code = 5799-2) Negativ e Negative [facility] Centerappearance, bswnm1165-98-85 09:38:00* Test Item Value Reference Range Interpretation Comments appearance, urine (test code = 5767-9) Clear Clear [facility] Centerurine gizdi8654-56-50 09:38:00* Test Item Value Reference Range Interpretation Comments urine color (test code = 5778-6) Yellow Yellow [facility] CenterpH, urine, teovtvgdpetvatcz5264-70-05 09:38:00* Test Item Value Reference Range Interpretation Comments pH, urine, semiquantitative (test code = 5803-2) 6.0 5.0-7 .5 [facility] Centerspecific gravity, body bxjgg2558-39-85 09:38:00* Test Item Value Reference Range Interpretation Comments specific gravity, body fluid (test code = 2964-5) 1.028 1.00 5-1.030 [facility] Centeralanine aminotransferase (SGPT), pmhax7316-40-99 09:38:00 * Test Item Value Reference Range Interpretation Comments alanine aminotransferase (SGPT), serum (test code = 1742-6) 43 1/L 0-44 [facility] Centeraspartate aminotransferase (SGOT), vdhbc7045-35-21 09:38:00* Test Item Value Reference Range Interpretation Comments aspartate aminotransferase (SGOT), serum (test code = 1920-8) 23 1/ L 0-40 [facility] Centeralkaline phosphatase, mejcz8991-29-23 09:38:00* Test Item Value Reference Range Interpretation Comments alkaline phosphatase, serum (test code = 1783-0) 62 1/L 39-11 7 [facility] Centerbilirubin, serum, lwynn6204-35-78 09:38:00* Test Item Value Reference Range Interpretation Comments bilirubin, serum, total (test code = 1975-2) 0.9 mg/dL 0.0-1.2 [facility] Centeralbumin/globulin ratio, nnslv3081-73-07 09:38:00* Test Item Value Reference Range Interpretation Comments albumin/globulin ratio, serum (test code = 1759-0) 1.6 1.1 -2.5 [facility] Healthglobulin, rjsnv0742-48-26 09:38:00* Test Item Value Reference Range Interpretation Comments globulin, serum (test code = 2336-6) 3.0 1.5-4.5 [facility] Healthalbumin, bjvur2313-32-94 09:38:00* Test Item Value Reference Range Interpretation Comments albumin, serum (test code = 1751-7) 4.7 g/dL 3.5-5.5 [facility] Centerprotein, total, datmq2206-62-03 09:38:00* Test Item Value Reference Range Interpretation Comments protein, total, serum (test code = 2885-2) 7.7 g/dL 6.0-8.5 [facility] Centercalcium, oueap7589-33-95 09:38:00* Test Item Value Reference Range Interpretation Comments calcium, serum (test code = 2000-8) 9.7 mg/dL 8.7-10.2 [facility] Centercarbon dioxide, venous qewjj6776-00-89 09:38:00* Test Item Value Reference Range Interpretation Comments carbon dioxide, venous blood (test code = 2027-1) 25 mmol/L 18-2 9 [facility] Healthchloride, bywff7878-54-10 09:38:00* Test Item Value Reference Range Interpretation Comments chloride, serum (test code = 2075-0) 98 mmol/L 96-106 [facility] Healthpotassium, cdubq8576-40-01 09:38:00* Test Item Value Reference Range Interpretation Comments potassium, serum (test code = 2823-3) 4.1 mmol/L 3.5-5.2 [facility] Centersodium, dvawp5636-53-41 09:38:00* Test Item Value Reference Range Interpretation Comments sodium, serum (test code = 2951-2) 141 mmol/L 134-144 [facility] Centerurea nitrogen/creatinine ratio, otdjo1011-37-13 09:38:00 * Test Item Value Reference Range Interpretation Comments urea nitrogen/creatinine ratio, serum (test code = 3097-3) 12 8-19 [facility] HealtheGFR if Tlfpkgcx2065-71-01 09:38:00* Test Item Value Reference Range Interpretation Comments eGFR if (test code = 39527-1) 141 mL/min/((173/100 ).m2) >59 [facility] CenterEstimated Glomerular Filtration Rate (calc)2016-06-17 09:38:00* Test Item Value Reference Range Interpretation Comments Estimated Glomerular Filtration Rate (calc) (test code = 74313-8) 122 mL/min/((173/100).m2) >59 [facility] Centercreatinine, [id number] 09:38:00* Test Item Value Reference Range Interpretation Comments creatinine, serum (test code = 2160-0) 0.90 mg/dL 0.76-1.27 [facility] Healthurea nitrogen, mhxlk7342-43-83 09:38:00* Test Item Value Reference Range Interpretation Comments urea nitrogen, blood (test code = 3094-0) 11 mg/dL 6-20 [facility] Centerblood glucose, oufdyb4017-36-43 09:38:00* Test Item Value Reference Range Interpretation Comments blood glucose, random (test code = 2339-0) 88 mg/dL 65-99 [facility] Centerimmature granulocytes, percentage of total cells, blood 2016-06-17 09:38:00* Test Item Value Reference Range Interpretation Comments immature granulocytes, percentage of total cells, bloo d (test code = 07297-2) 0 % [facility] Centerbasophil count, imhhitsd0197-18-27 09:38:00* Test Item Value Reference Range Interpretation Comments basophil count, absolute (test code = 46304-6) 0.0 x10E3/uL 0.0-0.2 [facility] CenterEosinophil Absolute Husfw5535-55-18 09:38:00* Test Item Value Reference Range Interpretation Comments Eosinophil Absolute Count (test code = 09813-2) 0.1 X10E3/UL 0.0-0. 4 [facility] Centermonocyte count, blood, ibpqeyqwh2207-00-26 09:38:00* Test Item Value Reference Range Interpretation Comments monocyte count, blood, automated (test code = 742-7) 0.3 X10E3/UL 0 .1-0.9 [facility] Centerlymphocyte count, blood, dptqngpgd6465-25-02 09:38:00* Test Item Value Reference Range Interpretation Comments lymphocyte count, blood, automated (test code = 731-0) 1.6 X10E3/UL 0.7-3.1 [facility] CenterAbsolute Tactezogwcr4960-57-40 09:38:00* Test Item Value Reference Range Interpretation Comments Absolute Neutrophils (test code = 42814-0) 1.7 X10E3/UL 1.4-7.0 [facility] Centerbasophils as percent of blood dhjxtutkil0585-05-21 09:38:00* Test Item Value Reference Range Interpretation Comments basophils as percent of blood leukocytes (test code = 707-0) 1 % [facility] Centereosinophils as percent of blood toabablzgb4226-25-13 09:38:00* Test Item Value Reference Range Interpretation Comments eosinophils as percent of blood leukocytes (test code = 713-8) 2 % [facility] Centermonocytes as percent of blood burfjsruza8885-19-55 09:38:00* Test Item Value Reference Range Interpretation Comments monocytes as percent of blood leukocytes (test code = 5905-5) 9 % [facility] Centerlymphocytes as percent of blood kotpuntxip1689-17-30 09:38:00* Test Item Value Reference Range Interpretation Comments lymphocytes as percent of blood leukocytes (test code = 736-9) 42 % [facility] Centerneutrophils as percent of blood iphmxddpkg0936-09-59 09:38:00* Test Item Value Reference Range Interpretation Comments neutrophils as percent of blood leukocytes (test code = 770-8) 46 % [facility] Centerplatelet uqssq9165-11-89 09:38:00* Test Item Value Reference Range Interpretation Comments platelet count (test code = 777-3) 184 X10E3/UL 150-379 [facility] Centerred blood cell distribution gtojy8452-54-75 09:38:00* Test Item Value Reference Range Interpretation Comments red blood cell distribution width (test code = 788-0) 13.5 % 12.3-15.4 [facility] [place] corpuscular hemoglobin concentration, GYE2110-43-03 09:38:00* Test Item Value Reference Range Interpretation Comments mean corpuscular hemoglobin concentration, RBC (test code = 786-4) 34.5 G/DL 31.5-35.7 [facility] [place] corpuscular hemoglobin, [id number] 09:38:00* Test Item Value Reference Range Interpretation Comments mean corpuscular hemoglobin, RBC (test code = 785-6) 29.5 pg 2 6.6-33.0 [facility] [place] corpuscular volume, [id number] 09:38:00* Test Item Value Reference Range Interpretation Comments mean corpuscular volume, RBC (test code = 787-2) 85 fL 79-97 [facility] Centerhematocrit, jpogv3068-22-25 09:38:00* Test Item Value Reference Range Interpretation Comments hematocrit, blood (test code = 4544-3) 46.9 % 37.5-51.0 [facility] Centerhemoglobin, omyxq5234-74-56 09:38:00* Test Item Value Reference Range Interpretation Comments hemoglobin, blood (test code = 718-7) 16.2 g/dL 12.6-17.7 [facility] Centererythrocyte (RBC) yzjdv3931-34-16 09:38:00* Test Item Value Reference Range Interpretation Comments erythrocyte (RBC) count (test code = 789-8) 5.50 X10E6/UL 4.14-5.80 [facility], [id number] 09:38:00* Test Item Value Reference Range Interpretation Comments leukocyte count, blood (test code = 6690-2) 3.8 X10E3/UL 3.4-10.8 [facility]
--- NOTE | 2020-04-04 00:05 | Emergency Department Note ---
History of Present Illnes History of Present Illness Chief Complaint: Abdominal Complaints History of Present Illness This is a 24 year old male, with high functioning autism, who presents with lower abdominal pain for the past 4 days. He describes the pain as a "pressing, sometimes sharp pain" across the mid to lower abdomen. He was seen by his PCP on Tuesday, and had a urinalysis and blood work performed which they were informed was unremarkable. Patient has not had a bowel movement for the past 2 days, so his mom given a suppository earlier this evening, without result. Patient's last BM consisted of "hard pellets."Patient has been unable to get in a comfortable position to sleep. Patient denies any fever, chills, cough, upper respiratory symptoms or vomiting. Patient has had some nausea, following arrival to the ED this evening. Patient's only abdominal surgery is an appendectomy. Historian: Patient, Family Member (father) Arrival Mode: Car Information Systems Audit Manager Required: No (patient is able to provide history) Onset (how long ago): day(s) (4) Location: mid to lower abdomen Quality: sharp Radiation: Reports non-radiation Severity: moderate Onset quality: sudden Duration (how long): day(s) (4) Timing of current episode: constant Progression: worsening Chronicity: new Context: Denies recent illness, Denies recent surgery, Denies trauma/injury Relieving factors: none Exacerbating factors: none Associated symptoms: Reports nausea/vomiting (without vomiting); Denies chest pain, Denies fever/chills Treatments prior to arrival: other (suppository) Past Medical/Family History Physician Review I have reviewed the patient's past medical and family history. Any updates have been documented here. Past Medical History Recent Fever: No Clinical Suspicion of Infectio: No New/Unexplained Change in Ment: No Other Medical History: AUTISM Past Surgical History: Appendectomy Social History Smoking Cessation: Never Smoker Alcohol Use: None Any Illegal Drug Use: No TB Exposure/Symptoms: No Physically hurt or threatened: No Family History Family history of heart diseas: No Other Any Pre-Existing Lines (PICC,: No Is patient up to date on immun: Yes Review of Systems Review of Systems Constitutional: Denies chills, Denies fever EENTM: Denies nose congestion, Denies throat pain Cardiovascular: Denies chest pain, Denies palpitations Respiratory: Denies chest congestion, Denies cough Gastrointestinal: Reports abdominal pain, Reports constipation, Reports nausea; Denies vomiting Genitourinary: Denies dysuria, Denies frequency Musculoskeletal: Denies back pain, Denies muscle pain Integumentary: Denies change in color, Denies rash Neurological: Reports no symptoms Psychological: Reports no symptoms Endocrine: Reports no symptoms Hematological/Lymphatic: Reports no symptoms Review of other systems: All other systems negative Physical Exam Related Data Allergies: Coded Allergies: No Known Allergies (Unverified , 02/18/20) Vital signs reviewed: Yes Physical Exam CONSTITUTIONAL Constitutional: Present well-developed, Present well-nourished, Present ill appearing (appears uncomfortable); Absent distressed HENT HENT: Present normocephalic, Present atraumatic, Present oropharynx clear/moist, Present nose normal HENT L/R: Present left ext ear normal, Present right ext ear normal EYES Eyes: Reports PERRL, Reports conjunctivae normal NECK Neck: Present ROM normal, Present supple; Absent cervical adenopathy PULMONARY Pulmonary: Present effort normal, Present breath sounds normal CARDIOVASCULAR Cardiovascular: Present regular rhythm, Present heart sounds normal, Present capillary refill normal, Present normal rate; Absent murmur GASTROINTESTINAL Abdominal: Present soft, Present tender (diffuse abd tenderness, possibly worse on right abdomen, negative Mejia's sign;); Absent distension, Absent guarding, Absent rebound GENITOURINARY Genitourinary: Present exam deferred SKIN Skin: Present warm, Present dry; Absent rash MUSCULOSKELETAL Musculoskeletal: Present ROM normal NEUROLOGICAL Neurological: Present alert, Present oriented x 3, Present no gross motor or sensory deficits PSYCHOLOGICAL Psychological: Present mood/affect normal Results Laboratory Laboratory Laboratory Tests Test 04/04/20 00:30 White Blood Count 7.09 x10e3/uL (4.8-10.8) Red Blood Count 5.06 x10e6/uL (4.3-5.7) Hemoglobin 14.8 g/dL (14.0-18.0) Hematocrit 44.0 % (38.2-49.6) Mean Corpuscular Volume 87.0 fL (81-99) Mean Corpuscular Hemoglobin 29.2 pg (28-32) Mean Corpuscular Hemoglobin Concent 33.6 g/dL (31-35) Red Cell Distribution Width 12.2 % (11.7-14.4) Platelet Count 240 x10e3/uL (140-360) Neutrophils (%) (Auto) 80.8 % (38.7-80.0) Lymphocytes (%) (Auto) 8.0 % (18.0-39.1) Monocytes (%) (Auto) 10.3 % (4.4-11.3) Eosinophils (%) (Auto) 0.0 % (0.0-6.0) Basophils (%) (Auto) 0.6 % (0.0-1.0) Neutrophils # (Auto) 5.7 (2.1-6.9) Lymphocytes # (Auto) 0.6 (1.0-3.2) Monocytes # (Auto) 0.7 (0.2-0.8) Eosinophils # (Auto) 0.0 (0.0-0.4) Basophils # (Auto) 0.0 (0.0-0.1) Absolute Immature Granulocyte (auto 0.02 x10e3/uL (0-0.1) [place]te - nl except for gluc - 144, ALT - 236, AST - 288, Tbili - 3.3, GGT - 208; UA - glu - 100 mg/dl, shannan - large, ket - trace, pro - trace; uro - > 8; Lab results reviewed: Yes Imaging Imaging results reviewed: Yes Impressions [place] [address] Patient Name: THERESA HARRINGTON MR #: [id number] : 1995 Age/Sex: 24/M Req #: [id number] Adm Physician: Ordered by: PERICO BHAT MD Report #: [id number] Location: [facility] Room/Bed: Procedure: [id number] HOPD/US ABDOMEN LIMITED-HOPD Exam Date: 04/04/20 Exam Time: 230 REPORT STATUS: Signed EXAM: Right Upper Quadrant Ultrasound with Doppler INDICATION: ^abdominal pain, elevated liver enzymes ^[id number] ^023 COMPARISON: Same-day abdominal CT. TECHNIQUE: Transverse and longitudinal images of the right upper abdomen were obtained. Grayscale, color Doppler and spectral waveform analysis of the hepatic vasculature and splenic vein were performed. FINDINGS: Liver: Size: 17 cm in the right midclavicular line, normal Appearance: Normal echogenicity, smooth contour Mass: No focal masses Gallbladder: Distended with multiple internal echogenic structures likely stones, and thin septations. Hyperechoid hetergenous thickened gallbladder wall. Patient is medicated, confounds negative sonographic mejia. Bile Ducts: Intrahepatic Ducts: No dilatation Extrahepatic Ducts: Common bile duct measures 0.83 cm, slightly dilatation Pancreas: Not well seen. Right Kidney: Normal appearance. Vessels: Main Portal Vein: Normal Aorta: Visualized portions are normal Inferior Vena Cava: Visualized portions are normal Free Fluid: No ascites or pleural effusion IMPRESSION: Acute cholecystitis. Slightly dilated common bile duct. Signed by: Joon Navarrete DO on 04/04/2020 3:34 AM Dictated By: JOON NAVARRETE DO 3 Transcribed By: HAIR on 04/04/20333 COPY TO: PERICO BHAT MD~ [place] [address] Patient Name: THERESA HARRINGTON MR #: [id number] : 1995 Age/Sex: 24/M Req #: [id number] Adm Physician: Ordered by: PERICO BHAT MD Report #: [id number] Location: [facility] Room/Bed: Procedure: [id number] HOPD/CT ABD/PEL WITH CONTRAST-HOPD Exam Date: 04/04/20 Exam Time: 244 REPORT STATUS: Signed EXAM: CT Abdomen and Pelvis WITH contrast INDICATION: ^lower abdominal pain, nausea ^[id number] ^0245 COMPARISON: Same-day right upper quadrant ultrasound., Abdominal CT 02/10/2020 TECHNIQUE: Abdomen and pelvis were scanned utilizing a multidetector helical scanner from the lung base to the pubic symphysis after administration of IV contrast. Coronal and sagittal reformations were obtained. Routine protocol was performed. Scan was performed when during portal venous phase. IV CONTRAST: 100 mL of Isovue 370 ORAL CONTRAST: None COMPLICATIONS: None RADIATION DOSE: Total DLP: 847 mGy*cm Estimated effective dose: (DLP x 0.015 x size factor) mSv CTDIvol has been reviewed. It is below the limits set by the Radiation Protocol Committee (RPC). Dose modulation, iterative reconstruction, and/or weight based adjustment of the mA/kV was utilized to reduce the radiation dose to as low as reasonably achievable. FINDINGS: LINES and TUBES: None. LOWER THORAX: Bibasilar atelectasis. HEPATOBILIARY: No focal hepatic lesions. Mild intra and extra hepatic biliary ductal dilation. GALLBLADDER: Hydropic with wall thickening and mucosal hyperenhancement. Pedicle cystic fat stranding. SPLEEN: No splenomegaly. PANCREAS: No focal masses or ductal dilatation. ADRENALS: No adrenal nodules KIDNEYS/URETERS: Kidneys enhance symmetrically. No hydronephrosis. No cystic or solid mass lesions. No stones. GI TRACT: No abnormal distention, wall thickening, or evidence of bowel obstruction. Appendectomy. PELVIC ORGANS/BLADDER: Unremarkable. LYMPH NODES: No lymphadenopathy. VESSELS: Unremarkable. PERITONEUM / RETROPERITONEUM: Trace fluid in the pelvis. No free air. BONES: Unremarkable. SOFT TISSUES: Unremarkable. IMPRESSION: 1. Acute cholecystitis. 2. Mild intra and extra hepatic biliary ductal dilation, possibly due to distal obstruction lesion. Consider MRCP for further evaluation. Signed by: Joon Navarrete DO on 04/04/2020 3:41 AM Dictated By: JOON NAVARRETE DO [id number] Transcribed By: HAIR on 04/04/20 2720 COPY TO: PERICO BHAT MD~ Diagnostics Tests Diagnostic test(s) reviewed: Yes Assessment & Plan Medical Decision Making MDM Discussed with patient and family, that it appears that he has a and infected gallbladder, that is the source of his pain. Case discussed with Dr. Adriano Hernandez, who was agreeable to admission. He requested that an MRCP be done this morning, to further evaluate for possible intrahepatic stones, since his liver enzymes are significantly elevated. Patient is also receiving IV Zosyn. Patient is medically stable for transfer to [facility] via EMS. Assessment & Plan Final Impression: (1) Acute cholecystitis (2) Abnormal liver enzymes (3) Nausea (4) Abdominal pain Depart Disposition: ADMITTED (to [facility] by Dr. Adriano Hernandez) Home Meds Active Scripts Mag Hydrox/Al Hydrox/Simeth (MAALOX MAXIMUM STRENGTH SUSP) 355 Ml Oral.susp, 30 ML PO Q4H PRN for ABDOMINAL PAIN, #120 ML Prov:AMBER SPARKS MD 02/18/20 Ondansetron Hcl* (ZOFRAN*) 4 Mg Tablet, 4 MG SL Q6H PRN for NAUSEA, #14 MG 0 Refills Prov:AMBER SPARKS MD 02/18/20 Omeprazole (OMEPRAZOLE) 20 Mg Tablet.dr, 20 TAB PO BID, #30 Prov:AMBER SPARKS MD 02/18/20 PERICO BHAT MD Apr 04, 2020 00:05
[2020-04-04] MEDS ORDERED: ONDANSETRON HCL 4 MG ORAL DISINTEGRATING TAB ONE (00:21)
[2020-04-04] MEDS ORDERED: SODIUM CHLORIDE 0.9% 1000ML 1,000 ML IV SCH (00:45)
[2020-04-04] MEDS ORDERED: SODIUM CHLORIDE 0.9% 1000ML 1,000 ML ONE (00:49)
[2020-04-04] MEDS ORDERED: SODIUM CHLORIDE 0.9% 50ML 50 ML ONE ×2 (02:12→09:48)
[2020-04-04] MEDS ORDERED: IOPAMIDOL 370 MG/ML 200 ML INFUS..BTL INJ ONE (02:12)
[2020-04-04 02:37] LABS: BASOPHILS % 0.6 % (0.0-1.0); HEMOGLOBIN 14.8 g/dL (14.0-18.0); LYMPHOCYTES # (AUTO) 0.6 (1.0-3.2); MEAN CORPUSCULAR HEMOGLOBIN 29.2 pg (28-32); MEAN CORPUSCULAR HGB CONC 33.6 g/dL (31-35); MONOCYTES # (AUTO) 0.7 (0.2-0.8); MONOCYTES % 10.3 % (4.4-11.3); NEUTROPHILS # (AUTO) 5.7 (2.1-6.9); NEUTROPHILS % 80.8 % (38.7-80.0); PLATELET COUNT 240 x10e3/uL (140-360); RED BLOOD COUNT 5.06 x10e6/uL (4.3-5.7); RED CELL DISTRIBUTION WIDTH 12.2 % (11.7-14.4)
--- NOTE | 2020-04-04 03:38 | Diagnostic Imaging Report ---
EXAM: Right Upper Quadrant Ultrasound with Doppler INDICATION: ^abdominal pain, elevated liver enzymes ^[id number] ^0231 COMPARISON: Same-day abdominal CT. TECHNIQUE: Transverse and longitudinal images of the right upper abdomen were obtained. Grayscale, color Doppler and spectral waveform analysis of the hepatic vasculature and splenic vein were performed. FINDINGS: Liver: Size: 17 cm in the right midclavicular line, normal Appearance: Normal echogenicity, smooth contour Mass: No focal masses Gallbladder: Distended with multiple internal echogenic structures likely stones, and thin septations. Hyperechoid hetergenous thickened gallbladder wall. Patient is medicated, confounds negative sonographic pinon. Bile Ducts: Intrahepatic Ducts: No dilatation Extrahepatic Ducts: Common bile duct measures 0.83 cm, slightly dilatation Pancreas: Not well seen. Right Kidney: Normal appearance. Vessels: Main Portal Vein: Normal Aorta: Visualized portions are normal Inferior Vena Cava: Visualized portions are normal Free Fluid: No ascites or pleural effusion IMPRESSION: Acute cholecystitis. Slightly dilated common bile duct. Signed by: Joon Navarrete DO on 04/04/2020 3:34 AM
--- NOTE | 2020-04-04 03:45 | Diagnostic Imaging Report ---
EXAM: CT Abdomen and Pelvis WITH contrast INDICATION: ^lower abdominal pain, nausea ^20200404 ^0245 COMPARISON: Same-day right upper quadrant ultrasound., Abdominal CT 02/10/2020 TECHNIQUE: Abdomen and pelvis were scanned utilizing a multidetector helical scanner from the lung base to the pubic symphysis after administration of IV contrast. Coronal and sagittal reformations were obtained. Routine protocol was performed. Scan was performed when during portal venous phase. IV CONTRAST: 100 mL of Isovue 370 ORAL CONTRAST: None COMPLICATIONS: None RADIATION DOSE: Total DLP: 847 mGy*cm Estimated effective dose: (DLP x 0.015 x size factor) mSv CTDIvol has been reviewed. It is below the limits set by the Radiation Protocol Committee (RPC). Dose modulation, iterative reconstruction, and/or weight based adjustment of the mA/kV was utilized to reduce the radiation dose to as low as reasonably achievable. FINDINGS: LINES and TUBES: None. LOWER THORAX: Bibasilar atelectasis. HEPATOBILIARY: No focal hepatic lesions. Mild intra and extra hepatic biliary ductal dilation. GALLBLADDER: Hydropic with wall thickening and mucosal hyperenhancement. Pedicle cystic fat stranding. SPLEEN: No splenomegaly. PANCREAS: No focal masses or ductal dilatation. ADRENALS: No adrenal nodules KIDNEYS/URETERS: Kidneys enhance symmetrically. No hydronephrosis. No cystic or solid mass lesions. No stones. GI TRACT: No abnormal distention, wall thickening, or evidence of bowel obstruction. Appendectomy. PELVIC ORGANS/BLADDER: Unremarkable. LYMPH NODES: No lymphadenopathy. VESSELS: Unremarkable. PERITONEUM / RETROPERITONEUM: Trace fluid in the pelvis. No free air. BONES: Unremarkable. SOFT TISSUES: Unremarkable. IMPRESSION: 1. Acute cholecystitis. 2. Mild intra and extra hepatic biliary ductal dilation, possibly due to distal obstruction lesion. Consider MRCP for further evaluation. Signed by: Joon Navarrete DO on 04/04/2020 3:41 AM
[2020-04-04] MEDS: PIPER-TAZ 3.375 GM / NS 50ML IV SCH ×4 (04:00→23:55)
[2020-04-04] MEDS ORDERED: PIPER-TAZ 3.375 GM 50 ML ONE (04:03)
[2020-04-04] MEDS ORDERED: HYDROMORPHONE 1MG/1ML INJ IV PRN ×2 (04:15→17:00)
[2020-04-04] MEDS ORDERED: ONDANSETRON HCL INJ 2MG/ML 2ML 2 MG/ML VIAL IV PRN (04:15)
--- OUTSIDE RECORDS SUMMARY | 2020-04-04 04:31 | XMS REPORT | Continuity of Care Document ---
Author Author [facility] t Organization [facility] t Address [address] Wilson [address] [place] [id number] Phone Unavailable Care Team Providers Care Keno Dealer Name Role Phone DO WHIT GUTHRIE PCP Zackery BHAT Attphys Unavailable Chaka Mcclain Attphys Shakila Topete Attphys Unavailable Guillaume-SacJie manuel Attphys Unavailable Tejas SPARKS Attphys Unavailable Lucio Perrin Attphys Unavailable Crystal Higginbotham Attphys Unavailable Lalo Enriquez Attphys Katty Romo Attphys Unavailable Arabella Latasha Attphys Radha Ryan Attphys Unavailable Hart, Kamini Attphys Unavailable Law, Karina Attphys Unavailable ShanksSimaNatasha Attphys Barrios, Nori Attphys Unavailable Barrios, Alina Attphys Unavailable Crockett, Christelle Attphys Unavailable Dodd, Moon Attphys Unavailable Chavez Kely Attphys Unavailable Stevens, Caitlin Attphys Unavailable Ramsey Kaplan, Shay Attphys Unavailable Patrica Carmichael Attphys Unavailable Chaka Mcclain Unavailable Natasha Shanks Unavailable Payers Payer Name Policy Type Policy Number Effective Date Expiration Date S [facility] [id number] 00:00:00 2016 00:00:00 [facility] Health Problems Condition Name Condition Details Condition Category Status Onset Date Resolution Date Last Treatment Date Treating Clinician Comments Source Medication, long term acute care registered nurse use Condition Active 2018-11-22 00: 00:00 2018-11-22 15:45:51 Chaka Mcclain [facility] Screening for anemia Condition Active 2016-08-20 00:00:00 2016-08-20 17:41:23 [facility] Condition Active 2016-06-17 00:00:00 2016-06-17 09:00:05 [facility] PROBLEM R/T PHASE OF LIFE Condition Active 2016-02-12 00: 00:00 2016-02-12 09:10:32 JohynChaka [facility] ADHD, COMBINED PRESENTATION, MILD Condition Active 02-11 00:00:00 2016-02-12 09:10:32 JohnyCahka [facility] Left lower quadrant abdominal pain Problem Active [facility] Bile-induced gastritis Problem Active [facility] Indigestion Problem Active [facility] BMI 29.0-29.9,adult BMI 29.0-29.9,adult Active Problem 03/12/2019 Whit Mussaji Problem Active 2019-03-12 02:00:13 Edward Palacio Major depressive disorder, single episode, severe Major depressive disorder, single episode, severe Active Problem 06/14/2017 Whit Stacieletty Problem Active 2017-06-14 03:00:05 [facility] BMI 30.0-30.9,adult BMI 30.0-30.9,adult Active Diagnosis 06/14/2017 Whit Jerri Diagnosis Active 2017-06-14 03:00:0 5 Edward Palacio Mild mental retardation Mild mental retardation Active Problem 03/12/2019 Whit Mussaji Problem Active 2019-03-12 0 2:00:13 Edward Palacio Autistic disorder Auti stic disorder Active Problem 03/12/2019 Whit Mussaarnaldo Problem Active 2019-03-12 02:00:13 Edward Palacio Pharyngitis Phar yngitis Active Diagnosis 06/03/2018 Whit Jerri Diagnosis Active 2018-06-03 03:00:05 Edward Palacio Fever Feve r Active Diagnosis 06/03/2018 Whitmerlin Guthrie Diagnosis Active 2018-06-03 03:00:05 Edward Palacio Major depressive disorder, single episode, 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, single episode, severe with psychotic features Active Problem 03/12/2019 Whit Jerri Problem Active 2019-03-12 02:00:13 Edward Palacio Routine general medical examination at a health care acility Routine general medical examination at a [...] 12/04/2016 Whitmerlin Guthrie Diagnosis Active 2016-12-04 02:00:42 [facility] Headache Head ache Active Diagnosis 06/03/2018 Whit Jerri Diagnosis Active 2018-06-03 03:00:05 [facility] BMI 27.0-27.9,adult BMI 27.0-27.9,adult Active Problem 03/12/2019 Whitmerlin Guthrie Problem Active 2019-03-12 02:00:13 Edward Palacio URI with cough and congestion URI with cough and congestion Active Diagnosis 06/03/2018 Whitmerlin Guthrie Diagnosis Active 2018-06-03 03:00:[address] [facility] Immunization due Immu nization due Active Diagnosis 03/12/2019 Whitmerlin Guthrie Diagnosis Active 2019-03-12 02:00:13 Edward Palacio Cellulitis of great toe of right foot Cellulitis of great toe of right foot Active Diagnosis 03/12/2019 Hwitmerlin Guthrie Diagnosis Active 2019-03-12 [facility]:00[facility]13 [facility] BMI 26.0-26.9,adult BMI 26.0-26.9,adult Active Diagnosis [...] Inacti ve Date Treating Clinician Comments Source N.KRamiroA. N.KRamiroA. Active Info Not Available 2019-02-27 00:00:00 Edward Palacio Family History Family Member Diagnosis Comments Start Date Stop Date Source Unknown Family Member Family History 2016-03-27 02:04:41 2 02:04:41 Edward Palacio Social History Social Habit Start Date Stop Date Quantity Comments Source social history reviewed E&M 2020-04-03 10:40:37 2020-04-03 10:40 :37 reviewed today [facility] social history E&M 2020-04-03 10:40:37 2020-04-03 10:40:37 Lives at home with mother and father; has 2 brothers ages 40 and 36 as of 02/12/16Not homeless. Has own roomNot employed. Finished HS in 2012, hopes to take college courses Sexually Active: No. [facility] drug use, illicit 2020-04-03 10:40:37 2020-04-03 10:40:37 Never [facility] alcohol use 2020-04-03 10:40:37 2020-04-03 10:40:37 Never [facility] smoking, advice to quit 2020-04-03 10:40:37 2020-04-03 10:40:37 Yes [facility] passive cigarette smoke exposure 2016-06-17 08:44:15 2016-06-17 08:44 :15 No [facility] patient considered to be homeless 2016-02-12 08:02:24 2016-02-12 08:0 2:24 No [facility] home/family situation, assessment 2016-02-12 08:02:24 2016-02-12 08:02:24 Has own room [facility] family support 2016-02-12 08:02:24 2016-02-12 08:02:24 Lives at home with mother and father; has 2 brothers ages 40 and 36 as of 02/12/16 [facility] Sex Assigned At 1995 00:00:00 1995 00:00:00 Male [facility] Smoking Status Start Date Stop Date Source Never smoked tobacco (finding) L [facility] Medications Ordered Medication Name Filled Medication Name Start Date Stop Da te Current Medication? Ordering Clinician Indication Dosage Frequency Signature (SIG) Comments Components Source Mag Hydrox/Al Hydrox/Simeth (Maalox Maximum Strength [facility]) 355 Ml ORAL.SUSP Mag Hydrox/Al Hydrox/Simeth (Maalox Maximum Strength Susp) 355 Ml ORAL.SUSP 2020-02-18 23:33:00 Yes 30 Every 4 Hour s as needed for Abdominal Pain [facility] Omeprazole Omeprazole 2020-02-18 23:33:00 Yes 20 Twi ce A Day [facility] Ondansetron Hcl (Zofran*) 4 Mg TABLET Ondansetron Hcl (Zofra n*) 4 Mg TABLET 2020-02-18 23:33:00 Yes 4 Every 6 Hours as n eeded for Nausea [facility] Aripiprazole 2019-03-12 02:00:13 Yes Whit Mussaji [address] [facility] LoHist-DM 2019-03-12 02:00:13 Yes Whit Mussaji 10 ml [facility] Ibuprofen 2019-03-12 02:00:13 Yes Whit Mussaji 1 tablet with food or milk as needed [facility] Bromfed DM 2019-03-12 02:00:13 Yes Whit Mussaji 10 ml as needed [facility] Risperidone 2019-03-12 02:00:13 Yes Whit Mussaji [address] [facility] Benzonatate 2019-03-12 02:00:13 Yes Whit Mussaji 1 capsule as needed [facility] Ibuprofen 2019-03-12 02:00:13 Yes Whit Mussaji 1 tablet as needed [facility] Divalproex Sodium ER 2019-03-12 02:00:13 Yes Whit Mus osman 2 tablets [facility] Amoxicillin 2019-03-12 02:00:13 Yes Whit Mussaji 1 tablet [facility] Atomoxetine HCl 2019-03-12 02:00:13 Yes Whit Mussaji 1 capsule in the morning [facility] D3-50 2019-03-12 02:00:13 Yes Whit Mussaji 1 c apsule [facility] Bactrim DS 2019-02-27 00:00:00 Yes Whit Mussaji 1 tablet [facility] Divalproex Sodium ER 2018-07-13 03:05:48 Yes Whit Mus osman not defined [facility] ABILIFY (ARIPIPRAZOLE) 10 MG TABS 2018-01-18 00:00:00 Arturo Mcclain .5{Tablet} 2xD Take one half tablet By Mouth Twice a Day [facility] Polyethylene Glycol 3350 2017-07-02 03:00:03 Yes Whit Mussaji TAKE DIRECTED [facility] Vitamin D (Ergocalciferol) 2017-07-02 03:00:03 Yes Murta za Mussaji TAKE ONE CAPSULE BY MOUTH EVERY WEEK DIRECTED [facility] Benztropine Mesylate 2017-07-02 03:00:03 Yes Whit Mussaji 1 ml [facility] Strattera 2017-07-02 03:00:03 Yes Whit Mussaji 1 capsule in the morning [facility] Pantoprazole Sodium 2017-07-02 03:00:03 Yes Whit Mussaji 1 tablet [facility] Guanfacine HCl 2017-07-02 03:00:03 Yes Whit Mussaji 1 tablet at bedtime [facility] Ondansetron HCl 2017-07-02 03:00:03 Yes Whit Mussaji 1 tablet [facility] Amphetamine Salt Combo 2017-07-02 03:00:03 Yes Whit farr not defined [facility] Ibuprofen 2017-07-02 03:00:03 Yes Whit Mussaji 1 tablet as needed [facility] Ibuprofen 2017-07-02 03:00:03 Yes Whit Mussaji 20 ml [facility] Tamiflu 2017-07-02 03:00:03 Yes Whit Mussaji 1 capsule [facility] Risperidone 2016-12-04 02:00:42 Yes Whit Mussaji [address] [facility] LoHist-DM 2016-12-04 02:00:42 Yes Whit Mussaji 10 ml [facility] Guanfacine HCl 2016-12-04 02:00:42 Yes Whit Mussaji 1 tablet at bedtime [facility] Benzonatate 2016-12-04 02:00:42 Yes Whit Mussaji 1 capsule as needed [facility] Strattera 2016-12-04 02:00:42 Yes Whit Mussaji 1 capsule in the morning [facility] Ibuprofen 2016-12-04 02:00:42 Yes Whit Mussaji 1 tablet as needed [facility] Ibuprofen 2016-12-04 02:00:42 Yes Whit Mussaji 20 ml [facility] Benztropine Mesylate 2016-12-04 02:00:42 Yes Whit Mussaji [address] [facility] Bromfed DM 2016-12-04 02:00:42 Yes Whit Mussaji 10 ml as needed [facility] Aripiprazole 2016-12-04 02:00:42 Yes Whit Mussaji 1 tablet [facility] (GUANFACINE HCL) 1 MG TABS 2016-07-05 00:00:00 2017-09-28 00:00:00 No take one tablet By Mouth daily (can take one half tablet two times daily) [facility] Amoxicillin 2016-03-27 02:04:41 Yes Whit Mussaji 1 tablet [facility] Vitamin D 2016-03-27 02:04:41 Yes Whit Mussaji 1 capsule [facility] Amphetamine Salt Combo 2016-03-27 02:04:41 Yes Whit M ussaji Unknown [facility] STRATTERA (ATOMOXETINE HCL) 60 MG CAPS 2016-02-12 00:00:00 Yes Chaka Johny take one tablet By Mouth daily [facility] DEPAKOTE SPRINKLES (DIVALPROEX SODIUM) 125 MG CSDR 2016-01 00:00:00 Yes Chaka Johny Take two capsules By Mouth Twice a Day [facility] ABILIFY (ARIPIPRAZOLE) 5 MG TABS 2016-02-12 00:00:00 2017-09 00:00:00 No take one tablet By Mouth once daily at bedtime [facility] Polyethylene Glycol 2014-01-18 00:00:00 Yes Whit wilsoni as directed [facility] Vitamin D 2013-06-27 00:00:00 Yes Whit Guthrie 1 capsule [facility] Immunizations Ordered Immunization Name Filled Immunization Name Date Status Comments Source hpv #3 2016-12-15 09:45:20 Completed Legac [facility] hpv #2 2016-08-16 10:20:29 Completed Legac y [facility] flu vax 2016-06-17 08:44:15 Completed Legac [facility] gardasil 2016-06-17 08:44:15 Completed Legac [facility] Vital Signs Vital Name Observation Time Observation Value Comments Source Weight 2020-02-18 22:00:00 200 [lb_av] [facility] BMI (Body Mass Index) 2020-02-18 22:00:00 28.7 kg/m2 [facility] blood pressure, diastolic 2019-06-05 14:01:59 85 mm[Hg] [facility] blood pressure, systolic 2019-06-05 14:01:59 127 mm[Hg] [facility] pulse rate 2019-06-05 14:01:59 107 /min [facility] weight E&M 2019-06-05 14:01:59 196.50 [lb_av] [facility] weight in kilograms E&M 2019-06-05 14:01:59 89.32 kg [facility] height in centimeters E&M 2019-06-05 14:01:59 177.16 cm [facility] blood pressure, diastolic 2019-04-09 11:28:40 78 mm[Hg] [facility] blood pressure, systolic 2019-04-09 11:28:40 125 mm[Hg] [facility] pulse rate 2019-04-09 11:28:40 101 /min [facility] weight E&M 2019-04-09 11:28:40 189.13 [lb_av] [facility] weight in kilograms E&M 2019-04-09 11:28:40 85.97 kg [facility] height in centimeters E&M 2019-04-09 11:28:40 177.16 cm [facility] Heart Rate 2019-02-27 19:45:00 [facility] Diastolic (mm Hg) 2019-02-27 19:45:00 [facility] Systolic (mm Hg) 2019-02-27 19:45:00 Herb katherine [facility] Temperature Oral (F) 2019-02-27 19:45:00 98 F [facility] Weight 2019-02-27 19:45:00 [facility] Height 2019-02-27 19:45:00 [facility] blood pressure, diastolic 2018-11-22 15:15:22 83 mm[Hg] [facility] blood pressure, systolic 2018-11-22 15:15:22 135 mm[Hg] [facility] pulse rate 2018-11-22 15:15:22 98 /[facility] weight E&M 2018-11-22 15:15:22 189.80 [lb_av] [facility] weight in kilograms E&M 2018-11-22 15:15:22 86.27 kg [facility] height in centimeters E&M 2018-11-22 15:15:22 177.16 cm [facility] blood pressure, diastolic 2018-08-02 15:00:41 76 mm[Hg] [facility] blood pressure, systolic 2018-08-02 15:00:41 110 mm[Hg] [facility] pulse rate 2018-08-02 15:00:41 86 /[facility] weight E&M 2018-08-02 15:00:41 188.50 [lb_av] [facility] weight in kilograms E&M 2018-08-02 15:00:41 85.68 kg [facility] height in centimeters E&M 2018-08-02 15:00:41 177.16 cm [facility] Heart Rate 2018-06-19 14:30:00 [facility] Diastolic (mm Hg) 2018-06-19 14:30:00 [facility] Systolic (mm Hg) 2018-06-19 14:30:00 Herb verol [facility] Temperature Oral (F) 2018-06-19 14:30:00 97.8 F [facility] Weight 2018-06-19 14:30:00 [facility] Height 2018-06-19 14:30:00 [facility] Heart Rate 2018-05-25 20:00:00 Edward Palacio Diastolic (mm Hg) 2018-05-25 20:00:00 Emma Palacio Systolic (mm Hg) 2018-05-25 20:00:00 Herb Palacio Temperature Oral (F) 2018-05-25 20:00:00 99.2 F Edward Palacio Weight 2018-05-25 20:00:00 Edward Palacio Height 2018-05-25 20:00:00 Edward Palacio weight E&M 2018-05-10 08:26:53 194 [lb_av] [facility] blood pressure, diastolic 2018-05-10 08:26:53 75 mm[facility]Hg] [facility] systolic 2018-05-10 08:26:53 113 mm[Hg] [facility] pulse rate 2018-05-10 08:26:53 82 /min [facility] weight in kilograms E&M 2018-05-10 08:26:53 88[facility]18 [facility] height in centimeters E&M 2018-05-10 08:26:53 177.16 [facility] blood pressure, diastolic 2018-02-15 11:27:36 81 mm[Hg] [facility] blood pressure, systolic 2018-02-15 11:27:36 121 mm[Hg] [facility] pulse rate 2018-02-15 11:27:36 81 /min [facility] weight E&M 2018-02-15 11:27:36 189 [lb_av] [facility] weight in kilograms E&M 2018-02-15 11:27:36 [facility].91 [facility] height in centimeters E&M 2018-02-15 11:27:[address] [facility] weight E&M 2018-01-18 12:42:41 193.25 [lb_av] [facility] weight in kilograms E&M 2018-01-18 12:42:41 87[facility]84 [facility] blood pressure, diastolic 2018-01-18 12:42:41 81 mm[Hg] [facility] blood pressure, systolic 2018-01-18 12:42:41 122 mm[Hg] [facility] pulse rate 2018-01-18 12:42:41 95 /min [facility] height in centimeters E&M 2018-01-18 12:42:41 177.16 [facility] blood pressure, diastolic 2017-12-21 12:44:39 81 mm[Hg] [facility] blood pressure, systolic 2017-12-21 12:44:39 123 mm[Hg] [facility] pulse rate 2017-12-21 12:44:39 116 /min [facility] weight E&M 2017-12-21 12:44:39 193.13 [lb_av] [facility] weight in kilograms E&M 2017-12-21 12:44:39 87.79 [facility] height in centimeters E&M 2017-12-21 12:44:39 177.16 [facility] 2017-09-28 08:47:03 78 mm[Hg] [facility], systolic 2017-09-28 08:47:03 120 mm[Hg] [facility] pulse rate 2017-09-28 08:47:03 69 /min [facility] weight E&M 2017-09-28 08:47:03 200 [lb_av] [facility] weight in kilograms E&M 2017-09-28 08:47:03 90.91 kg [facility] height in centimeters E&M 2017-09-28 08:47:03 177.16 cm [facility] blood pressure, diastolic 2017-07-01 14:58:41 74 mm[Hg] [facility], systolic 2017-07-01 14:58:41 128 mm[Hg] [facility] weight E&M 2017-07-01 14:58:41 211 [lb_av] [facility] weight in kilograms E&M 2017-07-01 14:58:41 95.91 [facility] height in centimeters E&M 2017-07-01 14:58:41 177.16 [facility] Heart Rate 2017-06-20 14:30:00 Edward Palacio Diastolic (mm Hg) 2017-06-20 14:30:00 Emma Palacio Systolic (mm Hg) 2017-06-20 14:30:00 [facility] [place] Temperature Oral (F) 2017-06-20 14:30:00 97 F [facility] Weight 2017-06-20 14:30:00 [facility] Height 2017-06-20 14:30:00 [facility] Heart Rate 2017-06-03 20:45:00 [facility] Diastolic (mm Hg) 2017-06-03 20:45:00 [facility] [place] Systolic (mm Hg) 2017-06-03 20:45:00 [facility] [place] Temperature Oral (F) 2017-06-03 20:45:00 98 F [facility] Weight 2017-06-03 20:45:00 [facility] Height 2017-06-03 20:45:00 [facility] Heart Rate 2017-03-21 20:00:00 [facility] Diastolic (mm Hg) 2017-03-21 20:00:00 [facility] [place] Systolic (mm Hg) 2017-03-21 20:00:00 Herb rial [place] Temperature Oral (F) 2017-03-21 20:00:00 98.0 F [facility] Weight 2017-03-21 20:00:00 [facility] Height 2017-03-21 20:00:00 [facility] blood pressure, diastolic 2017-02-28 09:25:02 70 mm[Hg] [facility] blood pressure, systolic 2017-02-28 09:25:02 124 mm[Hg] [facility] pulse rate 2017-02-28 09:25:02 66 /[facility] 2017-02-28 09:25:02 209 [lb_av] [facility] weight in kilograms E&M 2017-02-28 09:25:02 95 kg [facility] height in centimeters E&M 2017-02-28 09:25:02 177.16 cm [facility] temperature site 2016-12-15 09:45:20 tympanic [facility] temperature E&M 2016-12-15 09:45:20 98.5 [degF] Legac [facility] blood pressure, diastolic 2016-12-06 09:52:43 81 mm[Hg] [facility] blood pressure, systolic 2016-12-06 09:52:43 124 mm[Hg] [facility] pulse rate 2016-12-06 09:52:43 60 /min [facility] 2016-12-06 09:52:43 215.40 [lb_av] [facility] weight in kilograms E&M 2016-12-06 09:52:43 97.91 kg [facility] height in centimeters E&M 2016-12-06 09:52:43 177.16 cm [facility] Heart Rate 2016-11-22 15:00:00 [facility] Diastolic (mm Hg) 2016-11-22 15:00:00 [facility] pilo Johnsonann Systolic (mm Hg) 2016-11-22 15:00:00 Herbmegan Johnsonann Temperature Oral (F) 2016-11-22 15:00:00 98.2 F [facility] Weight 2016-11-22 15:00:[address] [facility] Height 2016-11-22 15:00:00 [facility] blood pressure, diastolic 2016-09-13 10:12:38 82 mm[Hg] [facility] blood pressure, systolic 2016-09-13 10:12:38 111 mm[Hg] [facility] pulse rate 2016-09-13 10:12:38 118 /min [facility] height in centimeters E&M 2016-09-13 10:12:38 177.16 cm [facility] weight E&M 2016-09-13 10:12:38 216.60 [lb_av] [facility] weight in kilograms E&M 2016-09-13 10:12:38 98.45 kg [facility] blood pressure, diastolic 2016-07-19 10:42:37 77 mm[Hg] [facility] blood pressure, systolic 2016-07-19 10:42:37 120 mm[Hg] [facility] pulse rate 2016-07-19 10:42:37 72 /min [facility] E&M 2016-07-19 10:42:37 215.13 [lb_av] [facility] weight in kilograms E&M 2016-07-19 10:42:37 97.79 kg [facility] height in centimeters E&M 2016-07-19 10:42:37 177.16 cm [facility] blood pressure, diastolic 2016-07-05 10:12:33 79 mm[Hg] [facility] blood pressure, systolic 2016-07-05 10:12:33 121 mm[Hg] [facility] pulse rate 2016-07-05 10:12:33 75 /min [facility] weight E&M 2016-07-05 10:12:33 210.50 [lb_av] [facility] weight in kilograms E&M 2016-07-05 10:12:33 95.68 kg [facility] height in centimeters E&M 2016-07-05 10:12:33 177.16 cm [facility] oxygen saturation, oximetry 2016-06-17 08:44:15 99 /min [facility] temperature E&M 2016-06-17 08:44:15 98.0 [degF] [facility] pulse rate 2016-06-17 08:44:15 84 /[facility], diastolic 2016-06-17 08:44:15 79 mm[Hg] [facility] blood pressure, systolic 2016-06-17 08:44:15 118 mm[Hg] [facility] weight E&M 2016-06-17 08:44:15 213 [lb_av] [facility] in [facility] E&M 2016-06-17 08:44:15 96.82 kg [facility] temperature site 2016-06-17 08:44:15 tympanic [facility] height in centimeters E&M 2016-06-17 08:44:15 177.16 cm [facility] blood pressure, diastolic 2016-05-05 10:24:18 76 mm[Hg] [facility] blood pressure, systolic 2016-05-05 10:24:18 119 mm[Hg] [facility] pulse rate 2016-05-05 10:24:18 80 /min [facility] E&M 2016-05-05 10:24:18 215.25 [lb_av] [facility] weight in kilograms E&M 2016-05-05 10:24:18 97.84 kg [facility] height in centimeters E&M 2016-05-05 10:24:18 177.16 cm [facility] Heart Rate 2016-03-15 14:15:00 [facility] Diastolic (mm Hg) 2016-03-15 14:15:00 [facility] [place] Systolic (mm Hg) 2016-03-15 14:15:00 Herb [facility] [place] Temperature Oral (F) 2016-03-15 14:15:00 98.6 F [facility] Weight 2016-03-15 14:15:00 [facility] Height 2016-03-15 14:15:00 [facility] blood pressure, diastolic 2016-03-10 10:16:34 80 mm[Hg] [facility] blood pressure, systolic 2016-03-10 10:16:34 121 mm[Hg] [facility] pulse rate 2016-03-10 10:16:34 90 /[facility] weight E&M 2016-03-10 10:16:34 210.50 [lb_av] [facility] weight in kilograms E&M 2016-03-10 10:16:34 95.68 kg [facility] height in centimeters E&M 2016-03-10 10:16:34 177.16 cm [facility] blood pressure, diastolic 2016-02-12 08:02:24 71 mm[Hg] [facility] blood pressure, systolic 2016-02-12 08:02:24 124 mm[Hg] [facility] pulse rate 2016-02-12 08:02:24 78 /min [facility] weight E&M 2016-02-12 08:02:24 213.13 [lb_av] [facility] weight in kilograms E&M 2016-02-12 08:02:24 96.88 kg [facility] height E&M 2016-02-12 08:02:24 69.75 [in_i] [facility] Diastolic (mm Hg) 2013-06-26 14:45:00 Mem [facility] Systolic (mm Hg) 2013-06-26 14:45:00 Herb [facility] [place] Temperature Oral (F) 2013-06-26 14:45:00 97.4 F [facility] [place] Weight 2013-06-26 14:45:00 [facility] Height 2013-06-26 14:45:00 [facility] [place] Procedures Procedure Date / Time Performed Performing Clinician [facility] e Diagnostic evaluation with [facility] [id number] 2016-02-12 09:09:59 Chaka Abraham [facility] Plan of Care Planned Activity Planned Date Details Comments Source Instructions Abdominal Pain - Adult ZHENG munguia [facility] Encounters Start Date/Time End Date/Time Encounter Type Admission Type Attendi [facility] Care Department Encounter ID Source 2020-04-03 00:00:00 2020-04-03 00:00:00 Office Visit Manolo Mcclain [facility] Encounter/[id number] [facility] 2020-04-03 00:00:00 2020-04-03 00:00:00 [facility]/[id number] [facility] 2020-03-31 00:00:00 2020-03-31 00:00:00 [facility]/[id number] [facility] 2020-03-19 00:00:00 2020-03-19 00:00:00 Office Visit Manolo Mcclain [facility] Encounter/[id number] [facility] 2020-02-18 21:50:00 2020-02-19 00:33:00 Departed Emergency Room 1 [facility]ANTHACLAR[facility] [id number] [facility] 2019-06-05 00:00:00 2019-06-05 00:00:00 [facility]/[id number] [facility] 2019-06-05 00:00:00 2019-06-05 00:00:00 [facility] Encounter/[id number] [facility] 2019-04-18 00:00:00 2019-04-18 00:00:00 [facility]/[id number] [facility] 2019-04-17 00:00:00 2019-04-17 00:00:00 Office Visit Chaka Abraham Adam [facility] Encounter/[id number] [facility] 2019-04-09 00:00:00 2019-04-09 00:00:00 Office Visit Chaka Abraham Adam [facility] Encounter/[id number] [facility] 2019-02-27 14:45:00 2019-02-27 14:45:00 Outpatient [facility] [id number] [employer] 2018-11-22 00:00:00 2018-11-22 00:00:00 Office Visit Manolo Mcclain [facility] Encounter/[id number] [facility] 2018-11-22 00:00:00 2018-11-22 00:00:00 Office Visit Chaka Abraham Jessenia [facility] Encounter/[id number] [facility] 2018-08-02 00:00:00 2018-08-02 00:00:00 Office Visit Chaka Abraham Jessenia [facility] Encounter/[id number] [facility] 2018-06-19 08:30:00 2018-06-19 08:30:00 Outpatient [facility] [id number] [employer] 2018-06-19 00:00:00 2018-06-19 00:00:00 Office Visit Darron Enriquez [facility] Encounter/[id number] [facility] 2018-05-25 14:00:00 2018-05-25 14:00:00 Outpatient [facility] [id number] [employer] 2018-05-10 00:00:00 2018-05-10 00:00:00 Office Visit Chaka Abraham Jessenia [facility] Encounter/[id number] [facility] 2018-02-15 00:00:00 2018-02-15 00:00:00 Office Visit Chaka Abraham Jessenia [facility] Encounter/[id number] [facility] 2018-01-18 00:00:00 2018-01-18 00:00:00 Office Visit Chaka Abraham Jessenia [facility] Encounter/[id number] [facility] 2017-12-21 00:00:00 2017-12-21 00:00:00 Office Visit Manolo Mcclain [facility] LC Encounter/[id number] [facility] 2017-12-21 00:00:00 2017-12-21 00:00:00 Office Visit Chaka Abraham Jessenia LC LC Encounter/[id number] [facility] 2017-09-28 00:00:00 2017-09-28 00:00:00 Office Visit Chaka Abraham Jessenia [facility] LC Encounter/[id number] [facility] 2017-07-01 00:00:00 2017-07-01 00:00:00 Office Visit Chaka Abraham Jessenia LC LC Encounter/[id number] [facility] 2017-06-20 08:30:00 2017-06-20 08:30:00 Outpatient [facility] [id number] [employer] 2017-06-20 00:00:00 2017-06-20 00:00:00 Office Visit Johny Manolo perezjamal [facility] LC Encounter/[id number] [facility] 2017 00:00:00 2017 00:00:00 Office Visit Johny Manolo saadia [facility] LC Encounter/[id number] [facility] 2017-06-10 00:00:00 2017-06-10 00:00:00 Office Visit JohnyManolo chrisjamal [facility] LC Encounter/[id number] [facility] 2017-06-03 14:45:00 2017-06-03 14:45:00 Outpatient [facility] [id number] [employer] 2017-03-29 00:00:00 2017-03-29 00:00:00 Office Visit Chaka Abraham Jessenia Perez, Nancy LC LC Encounter/[id number] [facility] 2017-03-21 14:00:00 2017-03-21 14:00:00 Outpatient [facility] [id number] [employer] 2017-02-28 00:00:00 2017-02-28 00:00:00 Office Visit Manolo Mcclain [facility] Encounter/[id number] [facility] 2017-02-28 00:00:00 2017-02-28 00:00:00 Office Visit Chaka Abraham Jessenia [facility] Encounter/[id number] [facility] 2016-12-15 00:00:00 2016-12-15 00:00:00 Office Visit Latasha Bell [facility] Encounter/[id number] [facility] 2016-12-15 00:00:00 2016-12-15 00:00:00 Office Visit Radha Powell Guadalupe [facility] Encounter/[id number] [facility] 2016-12-06 00:00:00 2016-12-06 00:00:00 Office Visit Chaka Abraham Velia [facility] Encounter/[id number] [facility] 2016-11-25 14:37:00 2016-11-25 14:37:00 Outpatient [facility] [id number] [employer] 2016-11-22 10:00:00 2016-11-22 10:00:00 Outpatient [facility] [id number] [employer] 2016-11-17 11:41:00 2016-11-17 11:41:00 Outpatient [facility] [id number] [employer] 2016-10-11 00:00:00 2016-10-11 00:00:00 Office Visit Crystal Hylton Maria [facility] Encounter/[id number] [facility] 2016-09-13 00:00:00 2016-09-13 00:00:00 Office Visit Chaka Abraham Velia [facility] Encounter/[id number] [facility] 2016-09-02 00:00:00 2016-09-02 00:00:00 Office Visit Manolo Mcclain [facility] Encounter/[id number] [facility] 2016-09-01 00:00:00 2016-09-01 00:00:00 Office Visit Chaka Abraham Jessenia LC LC Encounter/[id number] [facility] 2016-08-20 00:00:00 2016-08-20 00:00:00 Office Visit Ene Shanks [facility] Encounter/[id number] [facility] 2016-08-16 00:00:00 2016-08-16 00:00:00 Office Visit Latasha Bell [facility] Encounter/[id number] [facility] 2016-08-16 00:00:00 2016-08-16 00:00:00 Office Visit Latasha Linder Vanessa Padilla, Dunia [facility] Encounter/[id number] [facility] 2016-08-12 00:00:00 2016-08-12 00:00:00 Office Visit Manolo Mcclain LC [facility] Encounter/[id number] [facility] 2016-08-05 00:00:00 2016-08-05 00:00:00 Office Visit Manolo Mcclain [facility] Encounter/[id number] [facility] 2016-08-04 00:00:00 2016-08-04 00:00:00 Office Visit Chaka Abraham Jessenia Amaya, Rosa LC [facility] Encounter/[id number] [facility] 2016-08-02 00:00:00 2016-08-02 00:00:00 Office Visit Manolo Mcclain LC [facility] Encounter/[id number] [facility] 2016-07-28 00:00:00 2016-07-28 00:00:00 Office Visit Latasha Linder Dunia LC [facility] Encounter/[id number] [facility] 2016-07-19 00:00:00 2016-07-19 00:00:00 Office Visit Chaka Abraham Jessenia [facility] Encounter/[id number] [facility] 2016-07-05 00:00:00 2016-07-05 00:00:00 Office Visit Chaka Abraham Jessenia LC [facility] Encounter/[id number] [facility] 2016-06-30 00:00:00 2016-06-30 00:00:00 Office Visit Chaka Abraham Jessenia LC [facility] Encounter/[id number] [facility] 2016 00:00:00 2016 00:00:00 Office Visit Manolo Dodd [facility] Encounter/[id number] [facility] 2016 00:00:00 2016 00:00:00 Office Visit Ene Shanks [facility] Encounter/[id number] [facility] 2016-06-17 00:00:00 2016-06-17 00:00:00 Office Visit Ene Shanks [facility] Encounter/[id number] [facility] 2016-06-17 00:00:00 2016-06-17 00:00:00 Office Visit Natasha Light Daisy [facility] Encounter/[id number] [facility] 2016-06-17 00:00:00 2016-06-17 00:00:00 Office Visit Ene Shanks [facility] Encounter/[id number] [facility] 2016-06-17 00:00:00 2016-06-17 00:00:00 Office Visit Natasha Light Julissa Velez, Guadalupe LC [facility] Encounter/[id number] [facility] 2016-05-05 00:00:00 2016-05-05 00:00:00 Office Visit Chaka Abraham Jessenia LC [facility] Encounter/[id number] [facility] 2016-03-16 00:00:00 2016-03-16 00:00:00 Office Visit Rohan Stevens LC [facility] Encounter/[id number] [facility] 2016-03-15 09:15:00 2016-03-15 09:15:00 Outpatient Whit Berry DO, PA Murtaza Musajji, [place], [place] [id number] e[employer]Works 2016-03-10 00:00:00 2016-03-10 00:00:00 Office Visit Chaka Abraham Miguel [facility] Encounter/[id number] [facility] 2016-02-18 00:00:00 2016-02-18 00:00:00 Office Visit Rohan Stevens [facility] Encounter/[id number] [facility] 2016-02-12 00:00:00 2016-02-12 00:00:00 Office Visit Manolo Mcclain [facility] Encounter/[id number] [facility] 2016-02-12 00:00:00 2016-02-12 00:00:00 Office Visit Chaka Abraham Kristin Villegas, Erica [facility] Encounter/[id number] [facility] 2016-02-12 00:00:00 2016-02-12 00:00:00 Office Visit Chaka Abraham Miguel [facility] Encounter/[id number] [facility] 2016-02-11 00:00:00 2016-02-11 00:00:00 Office Visit Shay Carballo [facility] Encounter/[id number] [facility] 2015-08-28 09:06:00 2015-08-28 09:06:00 Outpatient Whit Berry DO, PA [place] Mus[place], [place], [place] [id number] [employer]Works 2013-07-02 15:29:00 2013-07-02 15:29:00 Outpatient Whit Berry DO, PA [place]ta[place] Mus[place], DO [place] [id number] e[employer]Works 2013-06-27 16:12:00 2013-06-27 16:12:00 Outpatient Whit Berry DO, PA [place]ta[place] Mus[place], DO, [place] [id number] e[employer]Works Results Test Description Test Time Test Comments Results Result Comments Source CT ABD/PEL WITH CONTRAST-HOPD 2020-04-04 03:34:00 [facility] : 1995 Sex: M [place] [address] Patient Name: THERESA HARRINGTON MR #: [id number] : 1995 Age/Sex: 24/M Req #: [id number] [facility] Physician: Ordered by: PERICO BHAT MD Report #: [id number] Location: [facility] Room/Bed: Procedure: [id number] HOPD/CT ABD/PEL WITH CONTRAST-HOPD Exam Date: 04/04/20 Exam Time: 0245 REPORT STATUS: Signed EXAM: CT Abdomen and Pelvis WITH contrast INDICATION: lower abdominal pain, nausea [id number] COMPARISON: Same-day right upper quadrant ultrasound., Abdominal CT 02/10/2020 TECHNIQUE: Abdomen and pelvis were scanned utilizing a multidetector helical scanner from the lung base to the pubic symphysis after administration of IV contrast. Coronal and sagittal reformations were obtained. Routine protocol was performed. Scan was performed when during portal venous phase. IV CONTRAST: 100 mL of Isovue 370 ORAL CONTRAST: None COMPLICATIONS: None RADIATION DOSE: Total DLP: 847 mGy*cm Estimated effective dose: (DLP x 0.015 x size factor) mSv CTDIvol has been reviewed. It is below the limits set by the Radiation Protocol Committee (RPC). Dose modulation, iterative reconstruction, and/or weight based adjustment of the mA/kV was utilized to reduce the radiation dose to as low as reasonably achievable. FINDINGS: LINES and TUBES: None. LOWER THORAX: Bibasilar atelectasis. HEPATOBILIARY: No focal hepatic lesions. Mild intra and extra hepatic biliary ductal dilation. GALLBLADDER: Hydropic with wall thickening and mucosal hyperenhancement. Pedicle cystic fat stranding. SPLEEN: No splenomegaly. PANCREAS: No focal masses or ductal dilatation. ADRENALS: No adrenal nodules KIDNEYS/URETERS: Kidneys enhance symmetrically. No hydronephrosis. No cystic or solid mass lesions. No stones. GI TRACT: No abnormal distention, wall thickening, or evidence of bowel obstruction. Appendectomy. PELVIC ORGANS/BLADDER: Unremarkable. LYMPH NODES: No lymphadenopathy. VESSELS: Unremarkable. PERITONEUM / RETROPERITONEUM: Trace fluid in the pelvis. No free air. BONES: Unremarkable. SOFT TISSUES: Unremarkable. IMPRESSION: 1. Acute cholecystitis. 2. Mild intra and extra hepatic biliary ductal dilation, possibly due to distal obstruction lesion. Consider MRCP for further evaluation. Signed by: Joon Rosales DO on 04/04/2020 3:41 AM Dictated By: JOON ROSALES DO 0 Transcribed By: HAIR on 04/04/20340 COPY TO: PERICO BHAT MD ABDOMEN LIMITED-HOPD 2020-04-04 03:26:00 [facility] : 1995 Sex: M [facility] [address] [address] Patient Name: THERESA HARRINGTON MR #: [id number] : 1995 Age/Sex: 24/M Req #: [id number] Adm Physician: Ordered by: PERICO BHAT MD Report #: [id number] Location: [facility] Room/Bed: Procedure: [id number] HOPD/US ABDOMEN LIMITED-HOPD Exam Date: 04/04/20 Exam Time: 230 REPORT STATUS: Signed EXAM: Right Upper Quadrant Ultrasound with Doppler INDICATION: abdominal pain, elevated liver enzymes [id number] COMPARISON: Same-day abdominal CT. TECHNIQUE: Transverse and longitudinal images of the right upper abdomen were obtained. Grayscale, color Doppler and spectral waveform analysis of the hepatic vasculature and splenic vein were performed. FINDINGS: Liver: Size: 17 cm in the right midclavicular line, normal Appearance: Normal echogenicity, smooth contour Mass: No focal masses Gallbladder: Distended with multiple internal echogenic structures likely stones, and thin septations. Hyperechoid hetergenous thickened gallbladder wall. Patient is medicated, confounds negative sonographic pinon. Bile Ducts: Intrahepatic Ducts: No dilatation Extrahepatic Ducts: Common bile duct measures 0.83 cm, slightly dilatation Pancreas: Not well seen. Right Kidney: Normal appearance. Vessels: Main Portal Vein: Normal Aorta: Visualized portions are normal Inferior Vena Cava: Visualized portions are normal Free Fluid: No ascites or pleural effusion IMPRESSION: Acute cholecystitis. Slightly dilated common bile duct. Signed by: Joon Rosales DO on 04/04/2020 3:34 AM Dictated By: JOON ROSALES DO 3 Transcribed By: HAIR on 04/04/20333 COPY TO: PERICO BHAT MD CT ABD/PEL WITH CONTRAST-HOPD 2020-02-18 23:06:00 [place] [address] Patient Name: THERESA HARRINGTON MR #: [id number] : 1995 Age/Sex: 24/M Req #: [id number] Adm Physician: Ordered by: AMBER SPARKS MD Report #: [id number] Location: [facility] Room/Bed: Procedure: [id number] HOPD/CT ABD/PEL WITH CONTRAST-HOPD Exam Date: 02/18/20 [...] = 2089-1) 66 mg/dL 0-99 [facility], [id number] 15:09:00* Test Item Value Reference Range Interpretation Comments HDL cholesterol, serum (test code = 2085-9) 54 mg/dL >39 [facility]lycer[facility], serum, [id number] 15:09:00* Test Item Value Reference Range Interpretation Comments triglyceride, serum, fasting (test code = 2571-8) 69 mg/dL 0-14 9 [facility]cholesterol, [id number] 15:09:00* Test Item Value Reference Range Interpretation Comments cholesterol, serum (test code = 2093-3) 134 mg/dL 100-199 [facility]apolisvalproic acid, [id number] 15:09:00* Test Item Value Reference Range Interpretation Comments valproic acid, serum (test code = 4086-5) 29 ug/mL 50-100 L [facility]apolisvery low density [id number] 15:09:00* Test Item Value Reference Range Interpretation Comments very low density lipoproteins (test code = 2091-7) 14 mg/dL 5-4 0 [facility] aminotransferase (SGPT), [id number] 15:09:00 * Test Item Value Reference Range Interpretation Comments alanine aminotransferase (SGPT), serum (test code = 1742-6) 22 1/L 0-44 [facility]apolisaspartate aminotransferase (SGOT), [id number] 15:09:00* Test Item Value Reference Range Interpretation Comments aspartate aminotransferase (SGOT), serum (test code = 1920-8) 15 1/ L 0-40 [facility]apolis[facility]aline phosphatase, [id number] 15:09:00* Test Item Value Reference Range Interpretation Comments alkaline phosphatase, serum (test code = 1783-0) 61 1/L 39-11 7 [facility]bilirubin, serum, [id number] 15:09:00* Test Item Value Reference Range Interpretation Comments bilirubin, serum, total (test code = 1975-2) 1.4 mg/dL 0.0-1.2 H [facility]albumin/globulin ratio, [id number] 15:09:00* Test Item Value Reference Range Interpretation Comments albumin/globulin ratio, serum (test code = 1759-0) 2.0 1.2 -2.2 [facility] Health[facility]ulin, [id number] 15:09:00* Test Item Value Reference Range Interpretation Comments globulin, serum (test code = 2336-6) 2.5 1.5-4.5 [facility] Healthalbumin, [id number] 15:09:00* Test Item Value Reference Range Interpretation Comments albumin, serum (test code = 1751-7) 4.9 g/dL 3.5-5.5 [facility] Healthprotein, total, [id number] 15:09:00* Test Item Value Reference Range Interpretation Comments protein, total, serum (test code = 2885-2) 7.4 g/dL 6.0-8.5 [facility] Healthcalcium, [id number] 15:09:00* Test Item Value Reference Range Interpretation Comments calcium, serum (test code = 2000-8) 9.9 mg/dL 8.7-10.2 [facility]arbon dioxide, venous pukws5062-09-45 15:09:00* Test Item Value Reference Range Interpretation Comments carbon dioxide, venous blood (test code = 2027-1) 25 mmol/L 20-2 9 [facility] Healthchloride, [id number] 15:09:00* Test Item Value Reference Range Interpretation Comments chloride, serum (test code = 2075-0) 99 mmol/L 96-106 [facility] Healthpotassium, [id number] 15:09:00* Test Item Value Reference Range Interpretation Comments potassium, serum (test code = 2823-3) 4.3 mmol/L 3.5-5.2 [facility]olissodium, [id number] 15:09:00* Test Item Value Reference Range Interpretation Comments sodium, serum (test code = 2951-2) 141 mmol/L 134-144 [facility]apolisurea nitrogen/creatinine ratio, [id number] 15:09:00 * Test Item Value Reference Range Interpretation Comments urea nitrogen/creatinine ratio, serum (test code = 3097-3) 11 9-20 [facility] HealtheGFR if Yloeihdd7251-03-42 15:09:00* Test Item Value Reference Range Interpretation Comments eGFR if (test code = 73886-4) 124 mL/min/((173/100 ).m2) >59 [facility]annapolisEstimated Glomerular Filtration Rate (calc)2019-06-05 15:09:00* Test Item Value Reference Range Interpretation Comments Estimated Glomerular Filtration Rate (calc) (test code = 82676-0) 107 mL/min/((173/100).m2) >59 [facility]apoliscreatinine, [id number] 15:09:00* Test Item Value Reference Range Interpretation Comments creatinine, serum (test code = 2160-0) 0.98 mg/dL 0.76-1.27 [facility]apolisurea nitrogen, [id number] 15:09:00* Test Item Value Reference Range Interpretation Comments urea nitrogen, blood (test code = 3094-0) 11 mg/dL 6-20 [facility]apolisblood glucose, [id number] 15:09:00* Test Item Value Reference Range Interpretation Comments blood glucose, random (test code = 2339-0) 91 mg/dL 65-99 [facility]apolisimmature granulocytes, percentage of total cells, blood 2019-06-05 15:09:00* Test Item Value Reference Range Interpretation Comments immature granulocytes, percentage of total cells, bloo d (test code = 35497-6) 0 % [facility]apolisbasophil count, [id number] 15:09:00* Test Item Value Reference Range Interpretation Comments basophil count, absolute (test code = 88835-5) 0.0 x10E3/uL 0.0-0.2 [facility] HealthEosinophil Absolute Xyrzp6527-28-19 15:09:00* Test Item Value Reference Range Interpretation Comments Eosinophil Absolute Count (test code = 24880-4) 0.1 X10E3/UL 0.0-0. 4 [facility]olismonocyte count, blood, cqllqebyf4403-19-90 15:09:00* Test Item Value Reference Range Interpretation Comments monocyte count, blood, automated (test code = 742-7) 0.3 X10E3/UL 0 .1-0.9 [facility]apolislymphocyte count, blood, tqzknvmoc1913-02-83 15:09:00* Test Item Value Reference Range Interpretation Comments lymphocyte count, blood, automated (test code = 731-0) 1.3 X10E3/UL 0.7-3.1 [facility]apolisAbsolute Kryxvncglze7931-46-81 15:09:00* Test Item Value Reference Range Interpretation Comments Absolute Neutrophils (test code = 45297-3) 3.0 X10E3/UL 1.4-7.0 [facility]apolisbasophils as percent of blood mprufqxsqi7367-55-66 15:09:00* Test Item Value Reference Range Interpretation Comments basophils as percent of blood leukocytes (test code = 707-0) 1 % [facility] Healtheosinophils as percent of blood trmgeutaed5940-57-10 15:09:00* Test Item Value Reference Range Interpretation Comments eosinophils as percent of blood leukocytes (test code = 713-8) 2 % [facility] Healthmonocytes as percent of blood hiiozgphtc5019-95-07 15:09:00* Test Item Value Reference Range Interpretation Comments monocytes as percent of blood leukocytes (test code = 5905-5) 6 % [facility]apolislymphocytes as percent of blood jhestuoorj3990-59-08 15:09:00* Test Item Value Reference Range Interpretation Comments lymphocytes as percent of blood leukocytes (test code = 736-9) 27 % [facility]apolisneutrophils as percent of blood crycdqxmgm9705-57-66 15:09:00* Test Item Value Reference Range Interpretation Comments neutrophils as percent of blood leukocytes (test code = 770-8) 64 % [facility]annapolisplatelet hmbxo3826-18-09 15:09:00* Test Item Value Reference Range Interpretation Comments platelet count (test code = 777-3) 210 X10E3/UL 150-450 [facility]apolisred blood cell distribution [id number] 15:09:00* Test Item Value Reference Range Interpretation Comments red blood cell distribution width (test code = 788-0) 13.4 % 11.6-15.4 [facility] corpuscular hemoglobin concentration, [id number] 15:09:00* Test Item Value Reference Range Interpretation Comments mean corpuscular hemoglobin concentration, RBC (test code = 786-4) 34.1 G/DL 31.5-35.7 [facility] corpuscular hemoglobin, [id number] 15:09:00* Test Item Value Reference Range Interpretation Comments mean corpuscular hemoglobin, RBC (test code = 785-6) 30.3 pg 2 6.6-33.0 [facility] corpuscular volume, [id number] 15:09:00* Test Item Value Reference Range Interpretation Comments mean corpuscular volume, RBC (test code = 787-2) 89 fL 79-97 [facility] dchew5572-12-56 15:09:00* Test Item Value Reference Range Interpretation Comments hematocrit, blood (test code = 4544-3) 46.9 % 37.5-51.0 [facility]oglobin, [id number] 15:09:00* Test Item Value Reference Range Interpretation Comments hemoglobin, blood (test code = 718-7) 16.0 g/dL 13.0-17.7 [facility]apoliserythrocyte (RBC) [id number] 15:09:00* Test Item Value Reference Range Interpretation Comments erythrocyte (RBC) count (test code = 789-8) 5.28 X10E6/UL 4.14-5.80 [facility]leukocyte count, [id number] 15:09:00* Test Item Value Reference Range Interpretation Comments leukocyte count, blood (test code = 6690-2) 4.8 X10E3/UL 3.4-10.8 [facility]apolisLDL cholesterol, guzyj4863-06-83 16:01:00* Test Item Value Reference Range Interpretation Comments LDL cholesterol, serum (test code = 2089-1) 47 mg/dL 0-99 [facility]HDL cholesterol, dzdok6822-20-05 16:01:00* Test Item Value Reference Range Interpretation Comments HDL cholesterol, serum (test code = 2085-9) 49 mg/dL >39 [facility]riglyceride, serum, zyvxvhy8478-70-01 16:01:00* Test Item Value Reference Range Interpretation Comments triglyceride, serum, fasting (test code = 2571-8) 89 mg/dL 0-14 9 [facility]cholesterol, [id number] 16:01:00* Test Item Value Reference Range Interpretation Comments cholesterol, serum (test code = 2093-3) 114 mg/dL 100-199 [facility]apolisvalproic acid, [id number] 16:01:00* Test Item Value Reference Range Interpretation Comments valproic acid, serum (test code = 4086-5) 16 ug/mL 50-100 L [facility]apolisvery low density zfqjgcqjczdr5288-25-58 16:01:00* Test Item Value Reference Range Interpretation Comments very low density lipoproteins (test code = 2091-7) 18 mg/dL 5-4 0 [facility]alanine aminotransferase (SGPT), vyhgr9891-22-94 16:01:00 * Test Item Value Reference Range Interpretation Comments alanine aminotransferase (SGPT), serum (test code = 1742-6) 20 1/L 0-44 [facility]apolisaspartate aminotransferase (SGOT), bjvvt0992-22-46 16:01:00* Test Item Value Reference Range Interpretation Comments aspartate aminotransferase (SGOT), serum (test code = 1920-8) 12 1/ L 0-40 [facility]apolisalkaline phosphatase, yggda5243-02-94 16:01:00* Test Item Value Reference Range Interpretation Comments alkaline phosphatase, serum (test code = 1783-0) 57 1/L 39-11 7 [facility] Healthbilirubin, serum, [id number] 16:01:00* Test Item Value Reference Range Interpretation Comments bilirubin, serum, total (test code = 1975-2) 1.2 mg/dL 0.0-1.2 [facility] Healthalbumin/globulin ratio, [id number] 16:01:00* Test Item Value Reference Range Interpretation Comments albumin/globulin ratio, serum (test code = 1759-0) 2.3 1.2 -2.2 H [facility] Healthglobulin, [id number] 16:01:00* Test Item Value Reference Range Interpretation Comments globulin, serum (test code = 2336-6) 2.3 1.5-4.5 [facility] Healthalbumin, [id number] 16:01:00* Test Item Value Reference Range Interpretation Comments albumin, serum (test code = 1751-7) 5.4 g/dL 3.5-5.5 [facility] Healthprotein, total, [id number] 16:01:00* Test Item Value Reference Range Interpretation Comments protein, total, serum (test code = 2885-2) 7.7 g/dL 6.0-8.5 [facility]calcium, dcsku5597-18-03 16:01:00* Test Item Value Reference Range Interpretation Comments calcium, serum (test code = 1999-8) 9.8 mg/dL 8.7-10.2 [facility]ol[facility]arbon dioxide, venous yvhwa1476-23-34 16:01:00* Test Item Value Reference Range Interpretation Comments carbon dioxide, venous blood (test code = 7-1) 24 mmol/L 20-2 9 [facility]apolischloride, [id number] 16:01:00* Test Item Value Reference Range Interpretation Comments chloride, serum (test code = 2075-0) 104 mmol/L 96-106 [facility] Healthpotassium, [id number] 16:01:00* Test Item Value Reference Range Interpretation Comments potassium, serum (test code = 2823-3) 4.5 mmol/L 3.5-5.2 [facility] Healthsodium, zqjwo6813-09-62 16:01:00* Test Item Value Reference Range Interpretation Comments sodium, serum (test code = 2951-2) 143 mmol/L 134-144 [facility]apolisurea nitrogen/creatinine ratio, fhwkj8810-27-41 16:01:00 * Test Item Value Reference Range Interpretation Comments urea nitrogen/creatinine ratio, serum (test code = 3097-3) 10 9-20 [facility] HealtheGFR if Ovodopcq0784-48-16 16:01:00* Test Item Value Reference Range Interpretation Comments eGFR if (test code = 05501-1) 98 mL/min/((173/100) .m2) >59 [facility]apolisEstimated Glomerular Filtration Rate (calc)2018-11-22 16:01:00* Test Item Value Reference Range Interpretation Comments Estimated Glomerular Filtration Rate (calc) (test code = 04586-1) 85 mL/min/((173/100).m2) >59 [facility]apoliscreatinine, clsmh1251-63-85 16:01:00* Test Item Value Reference Range Interpretation Comments creatinine, serum (test code = 2160-0) 1.19 mg/dL 0.76-1.27 [facility]apolisurea nitrogen, [id number] 16:01:00* Test Item Value Reference Range Interpretation Comments urea nitrogen, blood (test code = 3094-0) 12 mg/dL 6-20 [facility]apolisblood glucose, cjmcya4774-92-36 16:01:00* Test Item Value Reference Range Interpretation Comments blood glucose, random (test code = 2339-0) 98 mg/dL 65-99 [facility]apolisimmature granulocytes, percentage of total cells, blood 2018-11-22 16:01:00* Test Item Value Reference Range Interpretation Comments immature granulocytes, percentage of total cells, bloo d (test code = 11505-9) 0 % [facility]apolisbasophil count, ebqlqfsg6563-38-73 16:01:00* Test Item Value Reference Range Interpretation Comments basophil count, absolute (test code = 00178-9) 0.0 x10E3/uL 0.0-0.2 [facility] HealthEosinophil Absolute Jojvc8135-47-75 16:01:00* Test Item Value Reference Range Interpretation Comments Eosinophil Absolute Count (test code = 44428-4) 0.0 X10E3/UL 0.0-0. 4 [facility] Healthmonocyte count, blood, ushyszgam8864-77-63 16:01:00* Test Item Value Reference Range Interpretation Comments monocyte count, blood, automated (test code = 742-7) 0.3 X10E3/UL 0 .1-0.9 [facility] Healthlymphocyte count, blood, ydprfnzot5214-86-93 16:01:00* Test Item Value Reference Range Interpretation Comments lymphocyte count, blood, automated (test code = 731-0) 1.2 X10E3/UL 0.7-3.1 [facility] HealthAbsolute Jlhdcmkhvlh0186-01-72 16:01:00* Test Item Value Reference Range Interpretation Comments Absolute Neutrophils (test code = 88253-2) 2.9 X10E3/UL 1.4-7.0 [facility] Healthbasophils as percent of blood ygajrxycor5347-14-21 16:01:00* Test Item Value Reference Range Interpretation Comments basophils as percent of blood leukocytes (test code = 707-0) 1 % [facility] Healtheosinophils as percent of blood aentyvqkxp7323-09-80 16:01:00* Test Item Value Reference Range Interpretation Comments eosinophils as percent of blood leukocytes (test code = 713-8) 1 % [facility] Healthmonocytes as percent of blood rfgyzexkxm2034-55-13 16:01:00* Test Item Value Reference Range Interpretation Comments monocytes as percent of blood leukocytes (test code = 5905-5) 6 % [facility] Healthlymphocytes as percent of blood krymhgihht9018-66-19 16:01:00* Test Item Value Reference Range Interpretation Comments lymphocytes as percent of blood leukocytes (test code = 736-9) 27 % [facility] Healthneutrophils as percent of blood egqrfpfwif6343-24-71 16:01:00* Test Item Value Reference Range Interpretation Comments neutrophils as percent of blood leukocytes (test code = 770-8) 65 % [facility] Healthplatelet ejszw6002-74-80 16:01:00* Test Item Value Reference Range Interpretation Comments platelet count (test code = 777-3) 173 X10E3/UL 150-450 [facility]apolisred blood cell distribution etmkr1485-73-42 16:01:00* Test Item Value Reference Range Interpretation Comments red blood cell distribution width (test code = 788-0) 13.1 % 12.3-15.4 [facility] corpuscular hemoglobin concentration, [id number] 16:01:00* Test Item Value Reference Range Interpretation Comments mean corpuscular hemoglobin concentration, RBC (test code = 786-4) 32.9 G/DL 31.5-35.7 [facility] corpuscular hemoglobin, [id number] 16:01:00* Test Item Value Reference Range Interpretation Comments mean corpuscular hemoglobin, RBC (test code = 785-6) 29.5 pg 2 6.6-33.0 [facility] corpuscular volume, [id number] 16:01:00* Test Item Value Reference Range Interpretation Comments mean corpuscular volume, RBC (test code = 787-2) 90 fL 79-97 [facility]hematocrit, dggox3572-73-88 16:01:00* Test Item Value Reference Range Interpretation Comments hematocrit, blood (test code = 4544-3) 48.7 % 37.5-51.0 [facility]apolishemoglobin, [id number] 16:01:00* Test Item Value Reference Range Interpretation Comments hemoglobin, blood (test code = 718-7) 16.0 g/dL 13.0-17.7 [facility]apoliserythrocyte (RBC) rrozk9277-75-07 16:01:00* Test Item Value Reference Range Interpretation Comments erythrocyte (RBC) count (test code = 789-8) 5.42 X10E6/UL 4.14-5.80 [facility]apolisleukocyte count, qmtbt2940-91-07 16:01:00* Test Item Value Reference Range Interpretation Comments leukocyte count, blood (test code = 6690-2) 4.5 X10E3/UL 3.4-10.8 [facility]apolishemoglobin A1C, blood, as % of total pkcvrqjqrq1735-40-28 09:38:00* Test Item Value Reference Range Interpretation Comments hemoglobin A1C, blood, as % of total hemoglobin (test code = 4548-4) 5.5 % 4.8-5.6 [facility]apolisLDL cholesterol, gyaka9074-42-78 09:38:00* Test Item Value Reference Range Interpretation Comments LDL cholesterol, serum (test code = 2089-1) 50 mg/dL 0-99 [facility]apolisHDL cholesterol, csvpn7638-70-57 09:38:00* Test Item Value Reference Range Interpretation Comments HDL cholesterol, serum (test code = 2085-9) 37 mg/dL >39 L [facility]olistriglyceride, serum, knjxndo0886-55-92 09:38:00* Test Item Value Reference Range Interpretation Comments triglyceride, serum, fasting (test code = 2571-8) 102 mg/dL 0-14 9 [facility]apolischolesterol, bwnss0707-61-01 09:38:00* Test Item Value Reference Range Interpretation Comments cholesterol, serum (test code = 2093-3) 107 mg/dL 100-199 [facility] urine on jilkwxwvqw7545-54-66 09:38:00* Test Item Value Reference Range Interpretation Comments WBC urine on microscopy (test code = 1016) 0-5 /hpf 0-5 [facility]apolisprotein, urine, semiquantitative (dipstick)2016-06-17 09:38:00* Test Item Value Reference Range Interpretation Comments protein, urine, semiquantitative (dipstick) (test code = 175 3-3) 1+ Negative/Trace A [facility]apolisvitamin D 25-hydroxy, jihqx8991-54-08 09:38:00* Test Item Value Reference Range Interpretation Comments vitamin D 25-hydroxy, serum (test code = 02717-8) 40.8 ng/mL 30.0 -100.0 [facility]apolisvery low density ipmmftnbqbpn8537-75-28 09:38:00* Test Item Value Reference Range Interpretation Comments very low density lipoproteins (test code = 2091-7) 20 mg/dL 5-4 0 [facility]apolisbacteria, urine ldhcymchya2361-88-32 09:38:00* Test Item Value Reference Range Interpretation Comments bacteria, urine microscopy (test code = 5769-5) None seen None s een/Few [facility] Healthmucus on obsgvqmhnh0924-05-32 09:38:00* Test Item Value Reference Range Interpretation Comments mucus on urinalysis (test code = 8247-9) Present [facility]apolisepithelial cells, iqgim2807-59-93 09:38:00* Test Item Value Reference Range Interpretation Comments epithelial cells, urine (test code = 5787-7) 0-10 0-10 [facility]apolisRBC, Jwxyi4484-71-70 09:38:00* Test Item Value Reference Range Interpretation Comments RBC, Urine (test code = 24498-8) 0-2 /hpf 0-2 [facility]apolisurinalysis, microscopic wyhxjrzcjrg9559-61-15 09:38:00* Test Item Value Reference Range Interpretation Comments urinalysis, microscopic examination (test code = 99070-6) See below : [facility]apolisnitrate, mzuae2991-13-75 09:38:00* Test Item Value Reference Range Interpretation Comments nitrate, urine (test code = 31801-9) Negative Negative [facility]apolisurobilinogen, urine, semiquantitative (dipstick) 2016-06-17 09:38:00* Test Item Value Reference Range Interpretation Comments urobilinogen, urine, semiquantitative (dipstick) (test code = 5818-0) 1.0 0.2-1.0 [facility]apolisbilirubin, zryjb5292-42-54 09:38:00* Test Item Value Reference Range Interpretation Comments bilirubin, urine (test code = 5770-3) Negative Negative [facility]apolisketones, urine, by test dwkca1201-50-05 09:38:00* Test Item Value Reference Range Interpretation Comments ketones, urine, by test strip (test code = 5797-6) Negative Neg ative [facility]apolisglucose, urine, zyxvqcmaejkrwjsc8002-47-33 09:38:00* Test Item Value Reference Range Interpretation Comments glucose, urine, semiquantitative (test code = 5792-7) Negative Negative [facility]apolisleukocyte esterase, urine, by zusbqabi0209-93-16 09:38:00 * Test Item Value Reference Range Interpretation Comments leukocyte esterase, urine, by dipstick (test code = 5799-2) Negativ e Negative [facility]apolisappearance, ycdnr3517-36-34 09:38:00* Test Item Value Reference Range Interpretation Comments appearance, urine (test code = 5767-9) Clear Clear [facility]apolisurine qbkpx2007-28-35 09:38:00* Test Item Value Reference Range Interpretation Comments urine color (test code = 5778-6) Yellow Yellow [facility]olispH, urine, mmiliybkqdnexypx4099-45-00 09:38:00* Test Item Value Reference Range Interpretation Comments pH, urine, semiquantitative (test code = 5803-2) 6.0 5.0-7 .5 [facility]apolisspecific gravity, body swupq2563-16-22 09:38:00* Test Item Value Reference Range Interpretation Comments specific gravity, body fluid (test code = 2964-5) 1.028 1.00 5-1.030 [facility]apolisalanine aminotransferase (SGPT), ddqdo9466-21-04 09:38:00 * Test Item Value Reference Range Interpretation Comments alanine aminotransferase (SGPT), serum (test code = 1742-6) 43 1/L 0-44 [facility]apolisaspartate aminotransferase (SGOT), fimzv4519-57-08 09:38:00* Test Item Value Reference Range Interpretation Comments aspartate aminotransferase (SGOT), serum (test code = 1920-8) 23 1/ L 0-40 [facility]apolisalkaline phosphatase, eiwkt0868-59-69 09:38:00* Test Item Value Reference Range Interpretation Comments alkaline phosphatase, serum (test code = 1783-0) 62 1/L 39-11 7 [facility]apolisbilirubin, serum, tpebd8462-36-88 09:38:00* Test Item Value Reference Range Interpretation Comments bilirubin, serum, total (test code = 1975-2) 0.9 mg/dL 0.0-1.2 [facility]apolisalbumin/globulin ratio, cktra1348-84-79 09:38:00* Test Item Value Reference Range Interpretation Comments albumin/globulin ratio, serum (test code = 1759-0) 1.6 1.1 -2.5 [facility]apolisglobulin, hlvje8814-98-10 09:38:00* Test Item Value Reference Range Interpretation Comments globulin, serum (test code = 2336-6) 3.0 1.5-4.5 [facility]apolisalbumin, csldc1052-50-29 09:38:00* Test Item Value Reference Range Interpretation Comments albumin, serum (test code = 1751-7) 4.7 g/dL 3.5-5.5 [facility] Healthprotein, total, jldxs7902-86-10 09:38:00* Test Item Value Reference Range Interpretation Comments protein, total, serum (test code = 2885-2) 7.7 g/dL 6.0-8.5 [facility] Healthcalcium, hiizc4004-93-46 09:38:00* Test Item Value Reference Range Interpretation Comments calcium, serum (test code = 2000-8) 9.7 mg/dL 8.7-10.2 [facility]apoliscarbon dioxide, venous fsycu6763-66-05 09:38:00* Test Item Value Reference Range Interpretation Comments carbon dioxide, venous blood (test code = 2027-1) 25 mmol/L 18-2 9 [facility]apolischloride, iubsp9472-00-32 09:38:00* Test Item Value Reference Range Interpretation Comments chloride, serum (test code = 2075-0) 98 mmol/L 96-106 [facility]olispotassium, pgtuj3670-08-18 09:38:00* Test Item Value Reference Range Interpretation Comments potassium, serum (test code = 2823-3) 4.1 mmol/L 3.5-5.2 [facility]apolissodium, ymmrh1289-76-65 09:38:00* Test Item Value Reference Range Interpretation Comments sodium, serum (test code = 2951-2) 141 mmol/L 134-144 [facility]apolisurea nitrogen/creatinine ratio, jylza8548-42-70 09:38:00 * Test Item Value Reference Range Interpretation Comments urea nitrogen/creatinine ratio, serum (test code = 3097-3) 12 8-19 [facility] HealtheGFR if Beurfmsz3150-43-35 09:38:00* Test Item Value Reference Range Interpretation Comments eGFR if (test code = 43539-3) 141 mL/min/((173/100 ).m2) >59 [facility]apolisEstimated Glomerular Filtration Rate (calc)2016-06-17 09:38:00* Test Item Value Reference Range Interpretation Comments Estimated Glomerular Filtration Rate (calc) (test code = 88403-9) 122 mL/min/((173/100).m2) >59 [facility]apoliscreatinine, bgrdx8302-32-64 09:38:00* Test Item Value Reference Range Interpretation Comments creatinine, serum (test code = 2160-0) 0.90 mg/dL 0.76-1.27 [facility]apolisurea nitrogen, qptxd3379-92-69 09:38:00* Test Item Value Reference Range Interpretation Comments urea nitrogen, blood (test code = 3094-0) 11 mg/dL 6-20 [facility]apolisblood glucose, sxubxg0958-54-00 09:38:00* Test Item Value Reference Range Interpretation Comments blood glucose, random (test code = 2339-0) 88 mg/dL 65-99 [facility]apolisimmature granulocytes, percentage of total cells, blood 2016-06-17 09:38:00* Test Item Value Reference Range Interpretation Comments immature granulocytes, percentage of total cells, bloo d (test code = 99148-0) 0 % [facility]apolisbasophil count, aohuxfll0566-57-08 09:38:00* Test Item Value Reference Range Interpretation Comments basophil count, absolute (test code = 44791-2) 0.0 x10E3/uL 0.0-0.2 [facility]apolisEosinophil Absolute Avtjn3550-43-57 09:38:00* Test Item Value Reference Range Interpretation Comments Eosinophil Absolute Count (test code = 44279-2) 0.1 X10E3/UL 0.0-0. 4 [facility]apolismonocyte count, blood, jzawavwdo4173-37-00 09:38:00* Test Item Value Reference Range Interpretation Comments monocyte count, blood, automated (test code = 742-7) 0.3 X10E3/UL 0 .1-0.9 [facility]apolislymphocyte count, blood, krritmfdo3648-42-85 09:38:00* Test Item Value Reference Range Interpretation Comments lymphocyte count, blood, automated (test code = 731-0) 1.6 X10E3/UL 0.7-3.1 [facility]apolisAbsolute Xblppfnyeyu9440-55-60 09:38:00* Test Item Value Reference Range Interpretation Comments Absolute Neutrophils (test code = 85246-8) 1.7 X10E3/UL 1.4-7.0 [facility]apolisbasophils as percent of blood bkhuvzkyhh9081-10-71 09:38:00* Test Item Value Reference Range Interpretation Comments basophils as percent of blood leukocytes (test code = 707-0) 1 % [facility]oliseosinophils as percent of blood ckkgcfwwnp8599-61-13 09:38:00* Test Item Value Reference Range Interpretation Comments eosinophils as percent of blood leukocytes (test code = 713-8) 2 % [facility]olismonocytes as percent of blood oydnnvdpxz2786-75-12 09:38:00* Test Item Value Reference Range Interpretation Comments monocytes as percent of blood leukocytes (test code = 5905-5) 9 % [facility]apolislymphocytes as percent of blood ivsalxjsqb3208-06-36 09:38:00* Test Item Value Reference Range Interpretation Comments lymphocytes as percent of blood leukocytes (test code = 736-9) 42 % [facility]apolisneutrophils as percent of blood dnwbmdzcgv1182-63-81 09:38:00* Test Item Value Reference Range Interpretation Comments neutrophils as percent of blood leukocytes (test code = 770-8) 46 % [facility]apolisplatelet jwqcc1484-66-29 09:38:00* Test Item Value Reference Range Interpretation Comments platelet count (test code = 777-3) 184 X10E3/UL 150-379 [facility]apolisred blood cell distribution kxlvp7726-75-83 09:38:00* Test Item Value Reference Range Interpretation Comments red blood cell distribution width (test code = 788-0) 13.5 % 12.3-15.4 [facility] corpuscular hemoglobin concentration, WSY2149-84-15 09:38:00* Test Item Value Reference Range Interpretation Comments mean corpuscular hemoglobin concentration, RBC (test code = 786-4) 34.5 G/DL 31.5-35.7 [facility] corpuscular hemoglobin, [id number] 09:38:00* Test Item Value Reference Range Interpretation Comments mean corpuscular hemoglobin, RBC (test code = 785-6) 29.5 pg 2 6.6-33.0 [facility] corpuscular volume, ZPK1303-44-94 09:38:00* Test Item Value Reference Range Interpretation Comments mean corpuscular volume, RBC (test code = 787-2) 85 fL 79-97 [facility]apolishematocrit, qfjkk2273-10-76 09:38:00* Test Item Value Reference Range Interpretation Comments hematocrit, blood (test code = 4544-3) 46.9 % 37.5-51.0 [facility]apolishemoglobin, wnzbi8079-17-44 09:38:00* Test Item Value Reference Range Interpretation Comments hemoglobin, blood (test code = 718-7) 16.2 g/dL 12.6-17.7 [facility]apoliserythrocyte (RBC) kurmc9783-74-61 09:38:00* Test Item Value Reference Range Interpretation Comments erythrocyte (RBC) count (test code = 789-8) 5.50 X10E6/UL 4.14-5.80 [facility]apolisleukocyte count, pxtep8214-02-53 09:38:00* Test Item Value Reference Range Interpretation Comments leukocyte count, blood (test code = 6690-2) 3.8 X10E3/UL 3.4-10.8 [facility]
--- OUTSIDE RECORDS SUMMARY | 2020-04-04 04:31 | XMS REPORT | Continuity of Care Document ---
Author Author Edward Hakeem AngstroSudhakar [email or web address] Address Unknown Phone Unavailable Care Team Providers Care Sprinkling System Irrigator Name Role Phone [employer] Unavailable Un available Problems Problem [...] Active 800-160 MG Orally Twice a day [facility] Glycol as directed orally Active 527gm orally as directed [facility] 01/18/2014 [facility] Vitamin D 1 capsule Orally Active 18822 UNIT Orally once a week [facility] 06/27/2013 [facility] Divalproex Sodium ER not defin ed Orally Active 250 MG Orally [facility] Aripiprazole 1 tablet Orally Active 5 MG Orally Once a day [facility] Polyethylene Glycol 3350 TAKE DIRECTED NA Active [facility] LoHist-DM 10 ml Orally Active 5-2-10 MG/5ML Orally ev gracie 6 hrs [facility] Ibuprofen 1 tablet with food o r milk as needed Orally Active 400 MG Orally three times a day (tid) as needed (prn) [facility] Vitamin D (Ergocalciferol) DEVIN E ONE CAPSULE BY MOUTH EVERY WEEK DIRECTED NA Active 04051 UNIT [facility] Bromfed DM 10 ml as needed Orally Active 30-2-10 MG/5ML Orally every 6 hrs [facility] Risperidone 1 tablet Orally Active 1 MG Orally Once a day [facility] Benztropine Mesylate 1 ml Injection Active 1 MG/ML Injection Once a day [facility] Strattera 1 capsule in the mor lizbeth Orally Active 60 MG Orally Once a day [facility] Pantoprazole Sodium 1 tablet Orally Active 40 MG Orally Once a day [facility] Guanfacine HCl 1 tablet at bed time Orally Active 1 MG Orally [facility] a day [facility] Ondansetron HCl 1 tablet Orally Active 4 [...] 75 MG Orally Twice a da y [facility] [place] Ibuprofen 1 [...] MG/ML Injection Once a day Jerri Redman [facility] Bromfed DM 10 ml as needed Orally [...] Staciearnaldo Quinonesarnaldo D3-50 1 capsule Orally Active 36628 UNIT Orally once a week [facility] Amoxicillin 1 tablet Orally Active 500 MG Orally three kaylie es a day (tid) Jerri Guthrie Vitamin D 1 capsule Orally Active 29758 UNIT Orally once a week Mussletty Quinonesaarnaldo [...] Status Source Feroz Berry DO, [place] Unknown [id number] 06/27/19 14 06/27/2013 Feroz Berry DO, [place] Unknown [id number] 06/27/19 14 06/27/2013 Feroz Berry DO, [place] Unknown [id number] 06/27/19 14 06/27/2013 Feroz Berry DO, [place] Unknown [id number] 06/27/19 14 06/27/2013 Feroz Berry DO [place] Test results [id number] 07/02/19 14 07/02/2013 Feroz Berry DO PA Test results [id number] 07/02/19 14 07/02/2013 Feroz Berry DO PA Test results [id number] 07/02/19 14 07/02/2013 Feroz Berry DO PA Test results [id number] 09/13/19 15 09/12/2014 Feroz Berry DO PA Test results [id number] 09/13/19 15 09/12/2014 Feroz Berry DO PA Test results [id number] 08/28/19 16 08/28/2015 Feroz Berry DO, PA Test results [id number] 08/28/19 16 08/28/2015 Feroz Berry DO PA Consult [id number] 03/15/20 16 03/15/2016 Feroz Guthrie Procedures No [...]
[2020-04-04] MEDS ORDERED: MORPHINE SULFATE INJ 4 MG/ML INJ 1ML ONE (04:56)
[2020-04-04] MEDS ORDERED: ONDANSETRON HCL INJ 2MG/ML 2ML 2 MG/ML VIAL ONE (04:56)
[2020-04-04] MEDS ORDERED: MORPHINE SULFATE 2 MG/ML SYR 1ML IV STA (05:03)
[2020-04-04] MEDS ORDERED: ONDANSETRON HCL INJ 2MG/ML 2ML 2 MG/ML VIAL IV STA (05:03)
--- NOTE | 2020-04-04 05:48 | NUR ---
PT ARRIVED BY [facility]. PT IS AAOX3, RR EVEN AND NON-LABORED, ON ROOM AIR. NO S/SX OF DISTRESS NOTED. ORIENTED PT TO HOSPITAL ROOM, CALL LIGHT, PHONE, BED CONTROLS AND LIGHTS. PT FAMILY AT BEDSIDE. LEFT PT LAYING SEMI FOWLERS IN BED, BED IN LOW LOCKED POSITION, SIDE RAILS UPX2,. CALL LIGHT AND PHONE WITHIN REACH.
[2020-04-04] MEDS ORDERED: PIPER-TAZ 3.375 GM 50 ML IV ONE (06:00)
[2020-04-04] MEDS: SODIUM CHLORIDE 0.9% 1000ML 1,000 ML IV SCH ×3 (06:19→20:15)
[2020-04-04] MEDS ORDERED: ABILIFY5 MG PO (06:22)
[2020-04-04] MEDS ORDERED: PEPCID20 MG PO (06:22)
[2020-04-04] MEDS ORDERED: STRATTERA60 MG PO (06:22)
[2020-04-04] MEDS ORDERED: DICYCLOMINE HCL20 MG PO (06:22)
[2020-04-04] MEDS ORDERED: DIVALPROEX SOD250 MG PO (06:22)
[2020-04-04] MEDS ORDERED: GADOBENATE DIMEGLUMINE 1 ML IV ONE (09:48)
--- NOTE | 2020-04-04 09:57 | NUR ---
patient down to MRCP at this time
--- NOTE | 2020-04-04 11:18 | Diagnostic Imaging Report ---
TECHNIQUE: MRI of the abdomen and MRCP WITHOUT and WITH intravenous contrast. 3-D volume reconstructions were obtained to evaluate the biliary ductal system. INDICATION: 24-year-old man with cholecystitis and elevated liver enzymes. COMPARISON: Abdomen and pelvis CT as well as abdomen ultrasound 04/04/2020. FINDINGS: LOWER THORAX: Unremarkable. LIVER: No masses or hepatic steatosis. No focal hepatic lesions. Wedge-shaped area of arterial enhancement along the gallbladder fossa, likely reactive perfusional changes. BILIARY: Subcentimeter stones in the distended gallbladder, which measures 4 cm in transverse diameter. Gallbladder wall is thickened and somewhat irregular with pericholecystic fluid. Common bile duct is at the upper limit of normal in caliber and measures 0.6 cm with an apparent 0.5 cm T2 hypointensity at the ampulla. Mild prominence of the central intrahepatic bile ducts. SPLEEN: No splenomegaly. PANCREAS: No focal masses or ductal dilatation. ADRENALS: No adrenal nodules. KIDNEYS/URETERS: No hydronephrosis or solid mass lesions. PERITONEUM/RETROPERITONEUM: No free fluid. LYMPH NODES: No lymphadenopathy. VESSELS: Unremarkable. GI TRACT: No distention or wall thickening. BONES AND SOFT TISSUES: Unremarkable. IMPRESSION: Cholelithiasis with acute cholecystitis. Somewhat irregular gallbladder wall may be seen in the setting of gangrenous cholecystitis. Common bile duct is at the upper limit of normal in caliber with mildly prominent central intrahepatic bile ducts. 0.5 cm T2 hypointensity at the ampulla may represent choledocholithiasis. Signed by: Jose Birmingham MD on 04/04/2020 11:15 AM
--- NOTE | 2020-04-04 13:30 | NUR ---
patient to OR for surgery at this time. consent obtained via blender operator with cultural link.
--- NOTE | 2020-04-04 14:18 | NUR ---
candy dipper visited with the pt and mother , pt says he is feeling better, candy dipper validated the feeling and experience of hospital stay , the pt expressed appreciation to all the caregivers. candy dipper offered prayers and blessings chaplain Ranjan
[2020-04-04] MEDS ORDERED: BUPIVACAINE 0.25% 30ML SDV ONE (14:38)
[2020-04-04] MEDS ORDERED: ACETAMINOPHEN 1000 MG/100 ML IV PRN (17:00)
[2020-04-04] MEDS ORDERED: HYDROCODONE/APAP 7.5MG-325MG 1 EA TAB PO PRN (17:00)
[2020-04-04] MEDS: PANTOPRAZOLE 40 MG 10ML VIAL IV SCH (17:52)
--- NOTE | 2020-04-04 18:18 | Operative Report ---
DATE OF PROCEDURE: 04/04/2020 SURGEON: Adriano Hernandez MD PREOPERATIVE DIAGNOSIS: Acute cholecystitis and cholelithiasis. POSTOPERATIVE DIAGNOSES: Acute gangrenous cholecystitis and cholelithiasis. OPERATION PERFORMED: Laparoscopic cholecystectomy. MANAGING PARTNER: DARÍO Benavides. ANESTHESIA: General. COMPLICATIONS: None. ESTIMATED BLOOD LOSS: 50 mL. DESCRIPTION OF PROCEDURE: With the patient lying in bed in the supine position under good general endotracheal anesthesia, the abdomen was prepped with Betadine solution and draped in the usual manner. A Veress needle was introduced into the umbilicus and pneumoperitoneum was established without any difficulty. An 11 mm trocar was placed into the umbilicus and a 10 mm video laparoscope was placed into the intraabdominal cavity. Under direct vision, three 5 mm trocars were placed in the right subcostal region. Video laparoscopy at this point revealed the gallbladder to be totally covered up with adhesions, there was some draining serous fluid in the abdominal cavity consistent with acute cholecystitis. The omentum and the transverse colon were totally plastered up against the gallbladder. Once the omentum and the colon were from the gallbladder. The gallbladder was seen to be acutely inflamed with gangrenous changes consistent with acute cholecystitis. The gallbladder was extremely distended and could not be grasped, but had to be decompressed with a needle in order to be able to take some of the fluid out and grasp the gallbladder. Once this was done, the peritoneum overlying the neck of the gallbladder was then opened. There was a lot of inflammatory reaction in this area. Nonetheless, the cystic duct was identified and slowly and carefully followed to its junction with the common duct. The cystic duct was then circumferentially dissected away from the common duct, triply clipped and divided. The cystic artery was similarly doubly clipped and divided. The gallbladder was then slowly and carefully taken off the liver bed using the cautery scissors to help towards the top of the liver bed. The gallbladder back wall was totally gangrenous and we actually had to take a little bit of the liver tissue in the gallbladder fossa, noted to be able to get the gallbladder out. Once this was done, the gallbladder was placed in a pouch and removed through the umbilicus after enlarging the incision to allow for passage of the very inflamed gallbladder that had multiple stones. Laparoscopy was then again carried out. Perfect hemostasis was ascertained. A SurgiSeal was left in the liver bed and a 10 flat Randy-Santiago drain was left in the hepatorenal fossa and brought out through the most lateral right-sided trocar. At this point, we decided to go ahead and terminate the operation. We noted the patient had some abnormal liver function tests, which could very well be related to the inflamed gallbladder, although there is a possibility that he could have a small retained stone in the common duct, but at this point, the gangrenous gallbladder had to be done first and his LFTs did not come down in short order, then he will need to have an ERCP done at a later date. The pneumoperitoneum was then evacuated and all the trocars were removed under direct vision. The midline fascia at the umbilicus was closed with 2 [id number] 0 Vicryl, all layers were infiltrated on the way out with solution of 0.25% Marcaine. Subcutaneous tissue was approximated with 3-0 Vicryl and the skin was closed with subcuticular 5-0 Vicryl. Benzoin, Steri-Strips, and Band-Aids were applied. The sponge, lap, and needle counts were correct. The patient tolerated the procedure well and returned to the recovery room in stable condition. MD KATIA Yoon/JOSE /[id number]
--- NOTE | 2020-04-04 19:31 | NUR ---
SPOKE TO JALEESA CBARERA COVERING FOR JALEESA HAMPTON AT THIS TIME REGARDING HOME MED. NEW ORDER RECEIVED TO CONTINUE HOME MEDS
[2020-04-04] MEDS ORDERED: DIVALPROEX SOD125 MG PO (19:33)
[2020-04-04] MEDS: ARIPIPRAZOLE 5 MG TABLET PO SCH (21:00)
[2020-04-05] VITALS (8 sets, daily range): BP systolic 114–124; BP diastolic 77–98
[2020-04-05] MEDS: SODIUM CHLORIDE 0.9% 1000ML 1,000 ML IV SCH ×2 (03:36→12:01)
[2020-04-05] MEDS: PIPER-TAZ 3.375 GM / NS 50ML IV SCH ×3 (05:28→18:05)
[2020-04-05] MEDS ORDERED: ACETAMINOPHEN 1000 MG/100 ML 100 ML IV ONE (05:31)
[2020-04-05 05:50] LABS: BASOPHILS % 0.4 % (0.0-1.0); EOSINOPHILS % 0.1 % (0.0-6.0); HEMATOCRIT 43.4 % (38.2-49.6); HEMOGLOBIN 14.4 g/dL (14.0-18.0); LYMPHOCYTES # (AUTO) 0.9 (1.0-3.2); LYMPHOCYTES % 8.3 % (18.0-39.1); MEAN CORPUSCULAR HEMOGLOBIN 29.6 pg (28-32); MEAN CORPUSCULAR HGB CONC 33.2 g/dL (31-35); MEAN CORPUSCULAR VOLUME 89.1 fL (81-99); MONOCYTES % 9.6 % (4.4-11.3); NEUTROPHILS # (AUTO) 8.3 (2.1-6.9); NEUTROPHILS % 81.2 % (38.7-80.0); PLATELET COUNT 235 x10e3/uL (140-360); RED BLOOD COUNT 4.87 x10e6/uL (4.3-5.7); RED CELL DISTRIBUTION WIDTH 12.2 % (11.7-14.4)
[2020-04-05 06:04] LABS: ALANINE AMINOTRANSFERASE 401 IU/L (0-55); ALBUMIN 3.2 g/dL (3.5-5.0); ALBUMIN/GLOBULIN RATIO 0.9 (0.8-2.0); ALKALINE PHOSPHATASE 136 IU/L (40-150); BLOOD UREA NITROGEN 8 mg/dL (7-26); BUN/CREATININE RATIO 8 (6-25); CALCIUM 8.9 mg/dL (8.4-10.2); CARBON DIOXIDE 23 mmol/L (22-29); CHLORIDE 104 mmol/L (98-107); CREATININE, SERUM 0.96 mg/dL (0.72-1.25); EST GLOMERULAR FILTRATION RATE > 60 ML/MIN (60-); GLUCOSE 90 mg/dL (74-118); SODIUM 138 mmol/L (136-145)
--- NOTE | 2020-04-05 07:00 | NUR ---
BEDSIDE SHIFT REPORT FROM BODY BUMPER RN. PT DENIES NEEDS AT THIS TIME.
[2020-04-05] MEDS: ARIPIPRAZOLE 5 MG TABLET PO SCH ×2 (08:26→21:14)
[2020-04-05] MEDS: ATOMOXETINE HCL 60 MG PO SCH (09:00)
[2020-04-05] MEDS: DIVALPROEX SODIUM 125 MG TABDR...ER PO SCH (12:01)
[2020-04-05] MEDS: PANTOPRAZOLE 40 MG 10ML VIAL IV SCH (18:05)
[2020-04-06] VITALS (8 sets, daily range): BP systolic 117–133; BP diastolic 69–84
[2020-04-06] MEDS: PIPER-TAZ 3.375 GM / NS 50ML IV SCH ×4 (00:03→18:20)
[2020-04-06] MEDS: SODIUM CHLORIDE 0.9% 1000ML 1,000 ML IV SCH ×4 (00:03→20:15)
--- NOTE | 2020-04-06 07:00 | NUR ---
BEDSIDE SHIFT REPORT FROM CHILD WELFARE SOCIAL WORKER RN. PT DENIES NEEDS AT THIS TIME.
[2020-04-06 08:36] LABS: BASOPHILS # (AUTO) 0.1 (0.0-0.1); BASOPHILS % 0.7 % (0.0-1.0); EOSINOPHILS # (AUTO) 0.1 (0.0-0.4); EOSINOPHILS % 1.3 % (0.0-6.0); HEMATOCRIT 42.4 % (38.2-49.6); HEMOGLOBIN 13.8 g/dL (14.0-18.0); LYMPHOCYTES # (AUTO) 0.7 (1.0-3.2); LYMPHOCYTES % 10.7 % (18.0-39.1); MEAN CORPUSCULAR HEMOGLOBIN 29.2 pg (28-32); MEAN CORPUSCULAR HGB CONC 32.5 g/dL (31-35); MEAN CORPUSCULAR VOLUME 89.6 fL (81-99); MONOCYTES # (AUTO) 0.4 (0.2-0.8); MONOCYTES % 6.2 % (4.4-11.3); NEUTROPHILS # (AUTO) 5.5 (2.1-6.9); NEUTROPHILS % 80.8 % (38.7-80.0); PLATELET COUNT 251 x10e3/uL (140-360); RED BLOOD COUNT 4.73 x10e6/uL (4.3-5.7); RED CELL DISTRIBUTION WIDTH 12.5 % (11.7-14.4)
[2020-04-06] MEDS: ATOMOXETINE HCL 60 MG PO SCH (08:39)
[2020-04-06] MEDS: ARIPIPRAZOLE 5 MG TABLET PO SCH ×2 (08:39→21:01)
[2020-04-06 08:57] LABS: ALANINE AMINOTRANSFERASE 295 IU/L (0-55); ALBUMIN/GLOBULIN RATIO 0.8 (0.8-2.0); ALKALINE PHOSPHATASE 162 IU/L (40-150); BLOOD UREA NITROGEN 10 mg/dL (7-26); BUN/CREATININE RATIO 11 (6-25); CALCIUM 8.6 mg/dL (8.4-10.2); CARBON DIOXIDE 21 mmol/L (22-29); CHLORIDE 104 mmol/L (98-107); CREATININE, SERUM 0.92 mg/dL (0.72-1.25); EST GLOMERULAR FILTRATION RATE > 60 ML/MIN (60-); GLUCOSE 71 mg/dL (74-118); SODIUM 138 mmol/L (136-145)
[2020-04-06] MEDS: DIVALPROEX SODIUM 125 MG TABDR...ER PO SCH (11:49)
[2020-04-06] MEDS: PANTOPRAZOLE 40 MG 10ML VIAL IV SCH (18:20)
[2020-04-07 00:36] VITALS: BP 117/70
[2020-04-07] MEDS: SODIUM CHLORIDE 0.9% 1000ML 1,000 ML IV SCH (03:33)
[2020-04-07 05:07] VITALS: BP 118/80
[2020-04-07 05:30] LABS: BASOPHILS % 0.7 % (0.0-1.0); EOSINOPHILS # (AUTO) 0.2 (0.0-0.4); EOSINOPHILS % 2.9 % (0.0-6.0); HEMATOCRIT 41.1 % (38.2-49.6); HEMOGLOBIN 13.5 g/dL (14.0-18.0); LYMPHOCYTES # (AUTO) 1.1 (1.0-3.2); LYMPHOCYTES % 19.2 % (18.0-39.1); MEAN CORPUSCULAR HGB CONC 32.8 g/dL (31-35); MEAN CORPUSCULAR VOLUME 88.2 fL (81-99); MONOCYTES # (AUTO) 0.5 (0.2-0.8); MONOCYTES % 8.3 % (4.4-11.3); NEUTROPHILS # (AUTO) 3.8 (2.1-6.9); NEUTROPHILS % 68.5 % (38.7-80.0); PLATELET COUNT 268 x10e3/uL (140-360); RED BLOOD COUNT 4.66 x10e6/uL (4.3-5.7); RED CELL DISTRIBUTION WIDTH 12.8 % (11.7-14.4)
[2020-04-07] MEDS: PIPER-TAZ 3.375 GM / NS 50ML IV SCH ×2 (05:50)
[2020-04-07 05:54] LABS: ALANINE AMINOTRANSFERASE 226 IU/L (0-55); ALBUMIN 2.9 g/dL (3.5-5.0); ALBUMIN/GLOBULIN RATIO 0.8 (0.8-2.0); ALKALINE PHOSPHATASE 143 IU/L (40-150); ANION GAP 9.6 mmol/L (8-16); BLOOD UREA NITROGEN 8 mg/dL (7-26); BUN/CREATININE RATIO 9 (6-25); CALCIUM 8.5 mg/dL (8.4-10.2); CARBON DIOXIDE 26 mmol/L (22-29); CHLORIDE 107 mmol/L (98-107); CREATININE, SERUM 0.88 mg/dL (0.72-1.25); EST GLOMERULAR FILTRATION RATE > 60 ML/MIN (60-); GLUCOSE 98 mg/dL (74-118); POTASSIUM 3.6 mmol/L (3.5-5.1); SODIUM 139 mmol/L (136-145)
--- NOTE | 2020-04-07 07:07 | NUR ---
RECEIVED REPORT FROM OFF GOING NURSE. PATIENT SITTING UP IN CHAIR, AOX3, AND NO APPARENT DISTRESS.
[2020-04-07] MEDS: ARIPIPRAZOLE 5 MG TABLET PO SCH (08:11)
[2020-04-07] MEDS: ATOMOXETINE HCL 60 MG PO SCH (08:11)
[2020-04-07 08:12] VITALS: BP 124/78
[2020-04-07 08:24] VITALS: BP 124/78
[2020-04-07] MEDS ORDERED: TYLENOL # 31 EA PO (09:34)
[2020-04-07] MEDS ORDERED: AUGMENTIN 500-1 EACH PO (09:39)
--- NOTE | 2020-04-07 10:12 | NUR ---
Dr. Taylor Hernandez removed patients ELY drain. Patient tolerated well. Pt IV removed, no infiltration, no redness, and cath intact. Pt off floor via wheelchair. Pt in no apparent distress.
[2020-04-07] MEDS ORDERED: ONDANSETRON HCL 4 MG ORAL DISINTEGRATING TAB PO PRN (10:15)
[2020-04-07] MEDS ORDERED: PANTOPRAZOLE SOD 40 MG TABEC PO SCH (16:30)
== END 2020-04-07 10:15 | disposition home or self-care (01) | DRG 418 ==
LOC: FSED 23:53 → ERHOLD 04-04 04:22 → MED/SURG 04-04 05:38
PROVIDERS: ADMIT Surgery; ATTEND Surgery
PROC: 0FB44ZZ Excision of Gallbladder, Percutaneous Endoscopic Approach (ICD-10-PCS; principal; 2020-04-04 14:50)
DX: K80.00 Calculus of gallbladder with acute cholecystitis without obstruction (principal); F84.0 Autistic disorder; K82.A1 Gangrene of gallbladder in cholecystitis; Z20.828 Contact with and (suspected) exposure to other viral communicable diseases
CPT/HCPCS: 36415; 74177; 74183; 76705; 80048; 80053; 80076; 81003; 85025; 88304; 99284; C1766; J2270; J2405; J2543; J7030; Q0162; Q9967; U0002

== ENCOUNTER → 2020-04-16 | Outpatient (CLI) | payer MEDICARE, OTHER ==
[~2020-04-16] MED LIST changes: +ABILIFY5 MG PO; +AUGMENTIN 500-1 EACH PO; +DICYCLOMINE HCL20 MG PO; +DIVALPROEX SOD125 MG PO; +DIVALPROEX SOD250 MG PO; +PEPCID20 MG PO; +STRATTERA60 MG PO; +TYLENOL # 31 EA PO
[2020-04-16 10:06] LABS: ALANINE AMINOTRANSFERASE 56 IU/L (0-55); ALBUMIN 4.2 g/dL (3.5-5.0); ALBUMIN/GLOBULIN RATIO 1.2 (0.8-2.0); ALKALINE PHOSPHATASE 88 IU/L (40-150); ANION GAP 14.3 mmol/L (8-16); BLOOD UREA NITROGEN 12 mg/dL (7-26); BUN/CREATININE RATIO 13 (6-25); CALCIUM 9.4 mg/dL (8.4-10.2); CARBON DIOXIDE 25 mmol/L (22-29); CHLORIDE 105 mmol/L (98-107); EST GLOMERULAR FILTRATION RATE > 60 ML/MIN (60-); GLUCOSE 98 mg/dL (74-118); POTASSIUM 4.3 mmol/L (3.5-5.1); SODIUM 140 mmol/L (136-145)
== END ==
LOC: LAB 08:18
PROVIDERS: ATTEND Surgery
DX: K80.10 Calculus of gallbladder with chronic cholecystitis without obstruction (principal)
CPT/HCPCS: 36415; 80053